=== PATIENT | female | born 1980 | race Caucasian/White ===

== ENCOUNTER 2017-07-14 20:29 | Emergency (ER) | payer OTHER ==
[~2017-07-14] VITALS: Ht 157.5 cm; Wt 75.3 kg
--- OUTSIDE RECORDS SUMMARY | ~2017-07-14 | XMS ---
Demographics + + + | Address | [address] | | | [place] [address] | + + + | Preferred Language | Unknown | + + + | Marital Status | Unknown | + + + | Confucianist Affiliation | Unknown | + + + | Race | Unknown | + + + | Ethnic Group | Unknown | + + + Author + + + | Author | [facility] | + + + | Organization | [facility] | + + + | Address | [address] | | | [place] [address] | + + + | Phone | | + + + Care Team Providers + + + + | Care Ward Aide Name | Role | Phone | + + + + Unavailable | Unavailable | + + + + PROBLEMS +---------+ + + +--------+ + + | Type | Condition | ICD9-CM | TVX51-[id number] | Onset | Condition | SNOMED | | | | Code | Code | Dates | Status | Code | +---------+ + + +--------+ + + | Problem | Dizziness | 780.4 | | | Active | [id number] | +---------+ + + +--------+ + + | Problem | Chronic | 723.1 | | | Active | 2809225023 | | | neck pain | | | | | 107 | +---------+ + + +--------+ + + | Problem | Migraines | 346.90 | | | Active | 89950377 | +---------+ + + +--------+ + + | Problem | Pain in | | M79.672 | | Active | 8042400237 | | | left foot | | | | | [address] | +---------+ + + +--------+ + + | Problem | Other | G89.29 | | | Active | 24865074 | | | chronic | | | | | | | | pain | | | | | | +---------+ + + +--------+ + + | Problem | Allergic | | J30.9 | | Active | 62978173 | | | rhinitis | | | | | | +---------+ + + +--------+ + + | Problem | Allergic | J45.909 | | | Active | 606703904 | | | bronchitis | | | | | | +---------+ + + +--------+ + + | Problem | Pain in | | M79.671 | | Active | 2473591344 | | | right foot | | | | | [address] | +---------+ + + +--------+ + + | Problem | Lower back | M54.5 | | | Active | 018469509 | | | pain | | | | | | +---------+ + + +--------+ + + ALLERGIES Unknown Allergies SOCIAL HISTORY No smoking Hx information available PLAN OF CARE VITAL SIGNS MEDICATIONS Unknown Medications RESULTS No Results PROCEDURES No Known procedures IMMUNIZATIONS No Known Immunizations"
--- OUTSIDE RECORDS SUMMARY | ~2017-07-14 | XMS ---
Demographics + + + | Address | [address] | | | [place] [address] | + + + | Preferred Language | Unknown | + + + | Marital Status | Unknown | + + + | Worship Affiliation | Unknown | + + + | Race | Unknown | + + + | Ethnic Group | Unknown | + + + Author + + + | Author | [facility] | + + + | Organization | [facility] | + + + | Address | [address] | | | [place] [address] | + + + | Phone | | + + + Care Team Providers + + + + | Care Master Machinist Name | Role | Phone | + + + + Unavailable | Unavailable | + + + + PROBLEMS +---------+ + + +--------+ + + | Type | Condition | ICD9-CM | GKE45-JP | Onset | Condition | SNOMED | | | | Code | Code | Dates | Status | Code | +---------+ + + +--------+ + + | Problem | Chronic | 723.1 | | | Active | 8529947336 | | | neck pain | | | | | 107 | +---------+ + + +--------+ + + | Problem | Allergic | | J30.9 | | Active | 00645841 | | | rhinitis | | | | | | +---------+ + + +--------+ + + | Problem | Allergic | J45.909 | | | Active | 801919167 | | | bronchitis | | | | | | +---------+ + + +--------+ + + | Problem | Dizziness | 780.4 | | | Active | 639479189 | +---------+ + + +--------+ + + | Problem | Migraines | 346.90 | | | Active | 21071144 | +---------+ + + +--------+ + + | Problem | Borderline | R73.03 | | | Active | 908711808 | | | diabetes | | | | | | +---------+ + + +--------+ + + | Problem | BMI | Z68.27 | | | Active | 730170848 | | | 27.0-27.9, | | | | | | | | adult | | | | | | +---------+ + + +--------+ + + | Problem | Pain in | | M79.671 | | Active | 3908787962 | | | right foot | | | | | [address] | +---------+ + + +--------+ + + | Problem | Lower back | M54.5 | | | Active | 651577402 | | | pain | | | | | | +---------+ + + +--------+ + + | Problem | Pain in | | M79.672 | | Active | 0176969664 | | | left foot | | | | | [address] | +---------+ + + +--------+ + + | Problem | Other | G89.29 | | | Active | 56858571 | | | chronic | | | | | | | | pain | | | | | | +---------+ + + +--------+ + + ALLERGIES + + + + +--------+ | Substance | Reaction | Event Type | Date | Status | + + + + +--------+ | Latex | rash | Drug Allergy | Mar, | Active | + + + + +--------+ | Amoxicillin | facial swelling | Drug Allergy | Mar, | Active | + + + + +--------+ SOCIAL HISTORY No smoking Hx information available PLAN OF CARE + +---------+ | Activity | Details | + +---------+ +---+ | | +---+ + + + | Follow Up | 6 Weeks Reason:null | + + + VITAL SIGNS + + + + | Height | 62 in | 2017-03-28 | + + + + | Weight | 147.0 lbs | 2017-03-28 | + + + + | BMI | 26.88 kg/m2 | 2017-03-28 | + + + + | Temperature | 99.4 degrees Fahrenheit | 2017-03-28 | + + + + | Heart Rate | 58 /min | 2017-03-28 | + + + + | Blood pressure systolic | 145 mm Hg | 2017-03-28 | + + + + | Blood pressure diastolic | 77 mm Hg | 2017-03-28 | + + + + MEDICATIONS + + + + + + + +--------+ | Medicati | Instruct | Dosage | Frequenc | Start | End Date | Duration | Status | | on | ions | | y | Date | | | | + + + + + + + +--------+ | Albutero | Inhalati | 2 puffs | | | | 30 | Active | | l | on q4hrs | as | | | | day(s) | | | Sulfate | | needed | | | | | | | HFA 108 | | | | | | | | | (90 | | | | | | | | | Base) | | | | | | | | | MCG/ACT | | | | | | | | + + + + + + + +--------+ | Gabapent | Orally | 1 | | 31 May, | | 30 | Active | | in 300 | qHS | capsule | | 2017 | | day(s) | | | MG | | | | | | | | + + + + + + + +--------+ RESULTS No Results PROCEDURES + + + + + | Procedure | Date Ordered | Related Diagnosis | Body Site | + + + + + | Est Level II | March 28, 2017 | | | | Limited | | | | + + + + + | DSCHRG MED/CURRENT | March 28, 2017 | | | | MED MERGE | | | | + + + + + | DOC MEDS VERIFIED | March 28, 2017 | | | | W/PT OR RE | | | | + + + + + IMMUNIZATIONS No Known Immunizations"
--- OUTSIDE RECORDS SUMMARY | ~2017-07-14 | XMS ---
Demographics + + + | Address | [address] | | | [place] [address] | + + + | Preferred Language | Unknown | + + + | Marital Status | Unknown | + + + | Taoism Affiliation | Unknown | + + + | Race | Unknown | + + + | Ethnic Group | Unknown | + + + Author + + + | Author | [facility] | + + + | Organization | [facility] | + + + | Address | [address] | | | [place] [address] | + + + | Phone | | + + + Care Team Providers + + + + | Care Personal Injury Paralegal Name | Role | Phone | + + + + Unavailable | Unavailable | + + + + PROBLEMS +---------+ + + +--------+ + + | Type | Condition | ICD9-CM | ZGY98-QQ | Onset | Condition | SNOMED | | | | Code | Code | Dates | Status | Code | +---------+ + + +--------+ + + | Problem | Chronic | 723.1 | | | Active | 3507524866 | | | neck pain | | | | | 107 | +---------+ + + +--------+ + + | Problem | Allergic | | J30.9 | | Active | 75903877 | | | rhinitis | | | | | | +---------+ + + +--------+ + + | Problem | Allergic | J45.909 | | | Active | 036659160 | | | bronchitis | | | | | | +---------+ + + +--------+ + + | Problem | Dizziness | 780.4 | | | Active | 035799504 | +---------+ + + +--------+ + + | Problem | Migraines | 346.90 | | | Active | 70575573 | +---------+ + + +--------+ + + | Problem | Borderline | R73.03 | | | Active | 222396369 | | | diabetes | | | | | | +---------+ + + +--------+ + + | Problem | BMI | Z68.27 | | | Active | 590359771 | | | 27.0-27.9, | | | | | | | | adult | | | | | | +---------+ + + +--------+ + + | Problem | Pain in | | M79.671 | | Active | 7878270122 | | | right foot | | | | | [address] | +---------+ + + +--------+ + + | Problem | Lower back | M54.5 | | | Active | 031420150 | | | pain | | | | | | +---------+ + + +--------+ + + | Problem | Pain in | | M79.672 | | Active | 0991210054 | | | left foot | | | | | [address] | +---------+ + + +--------+ + + | Problem | Other | G89.29 | | | Active | 71341555 | | | chronic | | | | | | | | pain | | | | | | +---------+ + + +--------+ + + ALLERGIES Unknown Allergies SOCIAL HISTORY No smoking Hx information available PLAN OF CARE VITAL SIGNS MEDICATIONS Unknown Medications RESULTS No Results PROCEDURES No Known procedures IMMUNIZATIONS No Known Immunizations"
--- OUTSIDE RECORDS SUMMARY | ~2017-07-14 | XMS ---
Demographics + + + | Address | [address] | | | [place] [address] | + + + | Preferred Language | Unknown | + + + | Marital Status | Unknown | + + + | Sabianism Affiliation | Unknown | + + + | Race | Unknown | + + + | Ethnic Group | Unknown | + + + Author + + + | Author | [facility] | + + + | Organization | [facility] | + + + | Address | [address] | | | [place] [address] | + + + | Phone | | + + + Care Team Providers + + + + | Care Water Taxi Operator Name | Role | Phone | + + + + Unavailable | Unavailable | + + + + PROBLEMS + + + + + + + + | Type | Condition | ICD9-CM | LYS66-UJ | Onset | Condition | SNOMED | | | | Code | Code | Dates | Status | Code | + + + + + + + + | Problem | Dizziness | 780.4 | | | Active | 035844396 | + + + + + + + + | Problem | Chronic | 723.1 | | | Active | 3004767227 | | | neck pain | | | | | 107 | + + + + + + + + | Problem | Migraines | 346.90 | | | Active | 37416216 | + + + + + + + + | Assessment | Screening | | Z13.220 | 14 February, | Active | 960612970 | | | cholestero | | | 2017 | | | | | l level | | | | | | + + + + + + + + | Assessment | Family | | Z83.3 | 10 February, | Active | 442838880 | | | history of | | | 2016 | | | | | diabetes | | | | | | | | mellitus | | | | | | + + + + + + + + | Assessment | Encounter | | Z13.89 | 14 February, | Active | 782066071 | | | for | | | 2016 | | | | | screening | | | | | | | | for other | | | | | | | | disorder | | | | | | + + + + + + + + | Assessment | Allergic | | J30.9 | 10 February, | Active | 31021630 | | | rhinitis | | | 2017 | | | + + + + + + + + | Problem | Pain in | | M79.672 | | Active | 6251284801 | | | left foot | | | | | [address] | + + + + + + + + | Problem | Other | G89.29 | | | Active | 39338971 | | | chronic | | | | | | | | pain | | | | | | + + + + + + + + | Problem | Allergic | | J30.9 | | Active | 52569514 | | | rhinitis | | | | | | + + + + + + + + | Problem | Allergic | J45.909 | | | Active | 284123756 | | | bronchitis | | | | | | + + + + + + + + | Problem | Pain in | | M79.671 | | Active | 8215908805 | | | right foot | | | | | [address] | + + + + + + + + | Problem | Lower back | M54.5 | | | Active | 798069178 | | | pain | | | | | | + + + + + + + + ALLERGIES + + + + +--------+ | Substance | Reaction | Event Type | Date | Status | + + + + +--------+ | Latex | rash | Drug Allergy | February, | Active | + + + + +--------+ | Amoxicillin | facial swelling | Drug Allergy | February, | Active | + + + + +--------+ SOCIAL HISTORY No smoking Hx information available PLAN OF CARE VITAL SIGNS + + + + | Height | 62 in | 2017-02-14 | + + + + | Weight | 156.8 lbs | 2017-02-14 | + + + + | BMI | 28.68 kg/m2 | 2017-02-14 | + + + + | Temperature | 99.0 degrees Fahrenheit | 2017-02-14 | + + + + | Heart Rate | 54 /min | 2017-02-14 | + + + + | Blood pressure systolic | 116 mm Hg | 2017-02-14 | + + + + | Blood pressure diastolic | 61 mm Hg | 2017-02-14 | + + + + MEDICATIONS + + + + + + + +--------+ | Medicati | Instruct | Dosage | Frequenc | Start | End Date | Duration | Status | | on | ions | | y | Date | | | | + + + + + + + +--------+ | Robituss | Orally | 2 tsp @ | | 08 February, | | week | Active | | in AC | qhs | hs prn | | 2016 | | | | | 100 | | cough | | | | | | | MG/5ML | | | | | | | [...] + + + + + +--------+ RESULTS + +--------+ + + | Name | Result | Date | Reference Range | + +--------+ + + | CBC With | | 2017-02-14 | | | Differential/Platel | | | | | et | | | | + +--------+ + + | WBC | | | | + +--------+ + + | RBC | | | | + +--------+ + + | Hemoglobin | | | | + +--------+ + + | Hematocrit | | | | + +--------+ + + | MCV | | | | + +--------+ + + | MCH | | | | + +--------+ + + | MCHC | | | | + +--------+ + + | Neutrophils | | | | + +--------+ + + | Lymphs | | | | + +--------+ + + | Monocytes | | | | + +--------+ + + | Eos | | | | + +--------+ + + | Basos | | | | + +--------+ + + | Platelets | | | | + +--------+ + + | Hematology | | | | | Comments: | | | | + +--------+ + + | Neutrophils | | | | | (Absolute) | | | | + +--------+ + + | Lymphs (Absolute) | | | | + +--------+ + + | Monocytes(Absolute) | | | | + +--------+ + + | Eos (Absolute) | | | | + +--------+ + + | Baso (Absolute) | | | | + +--------+ + + | RDW | | | | + +--------+ + + | Sedimentation | | 2017-02-14 | | | Rate-Westergren | | | | + +--------+ + + | Sedimentation | | | | | Rate-Westergren | | | | + +--------+ + + | Comp. Metabolic | | 2017-02-14 | | | Panel (14) | | | | + +--------+ + + | Calcium, Serum | | | | + +--------+ + + | Glucose, Serum | | | | + +--------+ + + | BUN | | | | + +--------+ + + | Protein, Total, | | | | | Serum | | | | + +--------+ + + | Albumin, Serum | | | | + +--------+ + + | Bilirubin, Total | | | | + +--------+ + + | Alkaline | | | | | Phosphatase, S | | | | + +--------+ + + | AST (SGOT) | | | | + +--------+ + + | Potassium, Serum | | | | + +--------+ + + | Sodium, Serum | | | | + +--------+ + + | Chloride, Serum | | | | + +--------+ + + | Creatinine, Serum | | | | + +--------+ + + | ALT (SGPT) | | | | + +--------+ + + | Carbon Dioxide, | | | | | Total | | | | + +--------+ + + | BUN/Creatinine | | | | | Ratio | | | | + +--------+ + + | Globulin, Total | | | | + +--------+ + + | A/G Ratio | | | | + +--------+ + + | Lipid Panel | | 2017-02-14 | | + +--------+ + + | CHOLESTEROL | | | | + +--------+ + + | TRIGLYCERIDES | | | | + +--------+ + + | NON-HDL CHOL | | | | + +--------+ + + | HDL | | | | + +--------+ + + | LDL | | | | + +--------+ + + | VLDL | | | | + +--------+ + + | CHOL/HDL | | | | + +--------+ + + | Hemoglobin A1C | | 2017-02-14 | | | Panel | | | | + +--------+ + + | EST AVG GLUCOSE | | | | + +--------+ + + | HEMOGLOBIN A1C | | | | + +--------+ + + | X ray : Foot AP/L/O | | 2017-02-14 | | | Weightbearing | | | | | (3+views)-RT DRHannah | | | | | [place] | | | | + +--------+ + + | X ray : Foot AP/L/O | | 2017-02-14 | | | Weightbearing | | | | | (3+views)- LT DR. | | | | | [place] | | | | + +--------+ + + PROCEDURES + + + + + | Procedure | Date Ordered | Related Diagnosis | Body Site | + + + + + | Est Level IV | February 14, 2017 | | | | Extended | | | | + + + + + | DSCHRG MED/CURRENT | February 14, 2017 | | | | MED MERGE | | | | + + + + + | DOC MEDS VERIFIED | February 14, 2017 | | | | W/PT OR RE | | | | + + + + + IMMUNIZATIONS No Known Immunizations"
--- OUTSIDE RECORDS SUMMARY | ~2017-07-14 | XMS ---
Demographics + + + | Address | [address] | | | [place] [address] | + + + | Preferred Language | Unknown | + + + | Marital Status | Unknown | + + + | Cheondoism Affiliation | Unknown | + + + | Race | Unknown | + + + | Ethnic Group | Unknown | + + + Author + + + | Author | [facility] | + + + | Organization | [facility] | + + + | Address | [address] | | | [place] [address] | + + + | Phone | | + + + Care Team Providers + + + + | Care Health Science Instructor Name | Role | Phone | + + + + Unavailable | Unavailable | + + + + PROBLEMS +---------+ + + +--------+ + + | Type | Condition | ICD9-CM | RYV80-AE | Onset | Condition | SNOMED | | | | Code | Code | Dates | Status | Code | +---------+ + + +--------+ + + | Problem | Chronic | 723.1 | | | Active | [id number] | | | neck pain | | | | | 107 | +---------+ + + +--------+ + + | Problem | Allergic | | J30.9 | | Active | 20660196 | | | rhinitis | | | | | | +---------+ + + +--------+ + + | Problem | Allergic | J45.909 | | | Active | 221355741 | | | bronchitis | | | | | | +---------+ + + +--------+ + + | Problem | Dizziness | 780.4 | | | Active | 308834418 | +---------+ + + +--------+ + + | Problem | Migraines | 346.90 | | | Active | 80314824 | +---------+ + + +--------+ + + | Problem | Borderline | R73.03 | | | Active | 418805040 | | | diabetes | | | | | | +---------+ + + +--------+ + + | Problem | BMI | Z68.27 | | | Active | 957820914 | | | 27.0-27.9, | | | | | | | | adult | | | | | | +---------+ + + +--------+ + + | Problem | Pain in | | M79.671 | | Active | 8996813779 | | | right foot | | | | | [address] | +---------+ + + +--------+ + + | Problem | Lower back | M54.5 | | | Active | 203189519 | | | pain | | | | | | +---------+ + + +--------+ + + | Problem | Pain in | | M79.672 | | Active | 4906331815 | | | left foot | | | | | [address] | +---------+ + + +--------+ + + | Problem | Other | G89.29 | | | Active | 85730109 | | | chronic | | | [...] + + + | Follow Up | 3 -4 Weeks Reason:null | + + + VITAL SIGNS + + + + | Height | 62 in | 2017-03-07 | + + + + | Weight | 151.6 lbs | 2017-03-07 | + + + + | BMI | 27.72 kg/m2 | 2017-03-07 | + + + + | Temperature | 97.9 degrees Fahrenheit | 2017-03-07 | + + + + | Heart Rate | 58 /min | 2017-03-07 | + + + + | Blood pressure systolic | 110 mm Hg | 2017-03-07 | + + + + | Blood pressure diastolic | 40 mm Hg | 2017-03-07 | + + + + MEDICATIONS + + + + + + + +--------+ | Medicati | Instruct | Dosage | Frequenc | Start | End Date | Duration | Status | | on | ions | | y | Date | | | | + + + + + + + +--------+ | Gabapent | Orally | 1 | | 31 February, | | 30 | Active | | [...] + + | Est Level IV | March 07, 2017 | | | | Extended | | | | + + + + + | DSCHRG MED/CURRENT | March 07, 2017 | | | | MED MERGE | | | | + + + + + | DOC MEDS VERIFIED | March 07, 2017 | | | | W/PT OR RE | | | | + + + + + IMMUNIZATIONS No Known Immunizations"
[~2017-07-14 20:29] MED LIST: AZITHROMYCIN250 MG PO; BACLOFEN10 MG PO; CELEXA20 MG PO; CRUTCH1 EACH; CYCLOBENZAPRINE10 MG PO; CYMBALTA60 MG PO; DAYPRO600 MG PO; DICLOFENAC SODI75 MG PO; FLEXERIL10 MG PO; FLOMAX0.4 MG PO; IBUPROFEN600 MG PO; LEVAQUIN500 MG PO; LIDOCAINE700 MG TOP; LYRICA25 MG PO; LYRICA50 MG PO; MEDROL4 M1 PO; METHYLPREDNISOLO4 M1 PO; NEURONTIN300 MG PO; NORCO 5-325 TA1 EACH PO; OXYCODONE-ACET1 EAC1 PO; PERCOCET 5-3251 EACH PO; PREDNISONE20 MG PO; PYRIDIUM200 MG PO; SKELAXIN800 MG PO
[2017-07-14] MEDS ORDERED: ACETAMINOPHEN500 MG PO (21:10)
[2017-07-14] MEDS ORDERED: CYCLOBENZAPRINE10 MG PO (22:18)
== END 2017-07-14 22:38 | disposition home or self-care (01) ==
LOC: ED 20:29
DX: G89.29 Other chronic pain (principal); M54.2 Cervicalgia; F17.200 Nicotine dependence, unspecified, uncomplicated; Z98.51 Tubal ligation status; Z90.49 Acquired absence of other specified parts of digestive tract; Z88.1 Allergy status to other antibiotic agents; Z91.040 Latex allergy status; Z79.899 Other long term (current) drug therapy
CPT/HCPCS: 99283

== ENCOUNTER 2017-11-12 19:08 | Emergency (ER) | payer OTHER ==
[~2017-11-12] VITALS: Ht 157.5 cm; Wt 75.3 kg
[~2017-11-12 19:08] MED LIST changes: +ACETAMINOPHEN500 MG PO
[2017-11-12] MEDS ORDERED: VENTOLIN HFA18 GM INH (19:21)
[2017-11-12] MEDS ORDERED: DICLOFENAC SODI75 MG PO (21:28)
[2017-11-12] MEDS ORDERED: TRAMADOL HCL50 MG PO (21:28)
== END 2017-11-12 21:44 | disposition home or self-care (01) ==
LOC: ED 19:08
DX: M25.552 Pain in left hip (principal); F17.200 Nicotine dependence, unspecified, uncomplicated; Z88.0 Allergy status to penicillin; Z91.040 Latex allergy status
CPT/HCPCS: 73502; 99283

== ENCOUNTER 2020-07-30 09:43 | Emergency (ER) | payer OTHER ==
[~2020-07-30] VITALS: Ht 157.5 cm; Wt 81.2 kg
--- OUTSIDE RECORDS SUMMARY | ~2020-07-30 | XMS | Encounter Summary ---
Demographics + + + | Address | [address] | | | [place] [address] | + + + | Home Phone | | + + + | Preferred Language | Unknown | + + + | Marital Status | | + + + | Mandaeism Affiliation | 1013 | + + + | Race | White | + + + | Ethnic Group | Not or | + + + Author + + + | Author | [facility] | | | and [place] | + + + | Organization | [facility] | | | and [place] | + + + | Address | Unknown | + + + | Phone | Unavailable | + + + Support + + +---------+ + | Name | Relationship | Address | Phone | + + +---------+ + | Avery Quiroz | ECON | Unknown | | + + +---------+ + | Alissalaila Jackson | ECON | Unknown | | + + +---------+ + Care Team Providers + +------+ + | Care Occ Med Physician Name | Role | Phone | + +------+ + | Ingrid Acosta | PCP | | | PREPARATION SUPERVISOR FREEZING | | | + +------+ + Encounter Details +--------+ + + + + | Date | Type | Department | Care Team | Description | +--------+ + + + + | 09/29/ | Orders Only | [facility] [place] | Kg Lemons, | Neck pain (Primary | | 2012 | | NEUR[address]UR[address]ERY [address] | DO [address] | Dx) | | | | [address] | [address] [place], [place] | | | | | [place], [place] | [address] | | | | | [address] | | | | | | [phone] | | | +--------+ + + + + Social History + +-------+ +--------+------+ | Tobacco Use | Types | Packs/Day | Years | Date | | | | | Used | | + +-------+ +--------+------+ | Never Assessed | | | | | + +-------+ +--------+------+ + + + | Sex Assigned at | Date Recorded | | | | + + + | Not on file | | + + + documented as of this encounter Plan of Treatment + +---------+--------+ + + | Name | Type | Priori | Associated Diagnoses | Order Schedule | | | | ty | | | + +---------+--------+ + + | XR Cervical Spine 3 | Imaging | Routin | Neck pain | Expected: | | Vws or Less | | e | | 09/29/2013, Expires: | | | | | | 09/29/2014 | + +---------+--------+ + + documented as of this encounter Visit Diagnoses + + | Diagnosis | + + | Neck pain - Primary Cervicalgia | + + documented in this encounter"
--- OUTSIDE RECORDS SUMMARY | ~2020-07-30 | XMS | Encounter Summary ---
Demographics + + + | Address | [address] | | | [place] [address] | + + + | Home Phone | | + + + | Preferred Language | Unknown | + + + | Marital Status | | + + + | Yazidism Affiliation | 1013 | + + + | Race | White | + + + | Ethnic Group | Not or | + + + Author + + + | Author | [facility] | | | and [place] | + + + | Organization | [facility] | | | and [place] | + + + | Address | Unknown | + + + | Phone | Unavailable | + + + Support + + +---------+ + | Name | Relationship | Address | Phone | + + +---------+ + | Avery Quiroz | ECON | Unknown | | + + +---------+ + | Alissa Manuel | ECON | Unknown | | + + +---------+ + Care Team Providers + +------+ + | Care Party Plan Sales Consultant Name | Role | Phone | + +------+ + | Issa Reid MD | PCP | | + +------+ + Encounter Details +--------+ + + + + | Date | Type | Department | Care Team | Description | +--------+ + + + + | 11/12/ | Orders Only | [facility] [place] | Kg Lemons, | Neck pain | | 2013 | | [address]UR[address] | [address] | | | | | [address] | [address] [place], [place] | | | | | [place], [place] | [address] | | | | | [address] | | | | | | [phone] | | | +--------+ + + + [...] as of this encounter Plan of Treatment Not on filedocumented as of this encounter Visit Diagnoses + + | Diagnosis | + + | Neck pain Cervicalgia | + + documented in this encounter"
--- OUTSIDE RECORDS SUMMARY | ~2020-07-30 | XMS | Encounter Summary ---
Demographics + + + | Address | [address] | | | [place] [address] | + + + | Home Phone | | + + + | Preferred Language | Unknown | + + + | Marital Status | | + + + | Mosque Affiliation | 1013 | + + + | Race | White | + + + | Ethnic Group | Not or | + + + Author + + + | Author | [facility] | | | and [place] | + + + | Organization | [facility] | | | and [place] | + + + | Address | Unknown | + + + | Phone | Unavailable | + + + Support + + +---------+ + | Name | Relationship | Address | Phone | + + +---------+ + | Avery Quiroz | ECON | Unknown | | + + +---------+ + | Alissa Jackson | ECON | Unknown | | + + +---------+ + Care Team Providers + +------+ + | Care Wiping Rag Washer Name | Role | Phone | + +------+ + | Adrien Chatterjee DO | PCP | | + +------+ + Reason for Visit +--------+--------+ + | Reason | Onset | Comments | | | Date | | +--------+--------+ + | Other | 06/11/ | | | | 2013 | | +--------+--------+ + Encounter Details +--------+ + + + + | Date | Type | Department | Care Team | Description | +--------+ + + + + | 06/11/ | Telephone | [facility] | Kg Lemons, | Other | | 2013 | | [address]UR[address] | [address] | | | | | [address] | [address] [place], [place] | | | | | [place], [place] | [id number] | | | | | [address] | | | | | | [phone] | | | +--------+ + + + + Social History + + + +--------+------+ | Tobacco Use | Types | Packs/Day | Years | Date | | | | | Used | | + + + +--------+------+ | Current Every Day | Cigarettes | 1.25 | 19 | | | Smoker | | | | | + + + +--------+------+ + +---+---+---+ | Smokeless Tobacco: | | | | | Never Used | | | | + +---+---+---+ + + +---------+ + | Alcohol Use | Drinks/Week | oz/Week | Comments | + + +---------+ + | Yes | | | 2-3 drinks per | | | | | yearrarely | + + +---------+ + + + + | Sex Assigned at | Date Recorded | | | | + + + | Not on file | | + + + documented as of this encounter Miscellaneous Notes Telephone Encounter - Omer Jackson Cert MA - 06/11/2014 2:47 PM PDTI called [facility] tee [facility]ad to confirm wether or not the Rx's I called in for [place] yesterday afternoon were read y 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 I re-called in both prescriptions for [place] and Diazepam at this time. LVM for Gale letting her know. OMER JACKSON elephone Encounte r - Lacie Lemus - 06/11/2014 1:28 PM PDTPatient called to check on status of Rx, pranay severino advised per Omer she will call [facility]. elephone Encounter - Brenda Pinon - 06/11/2014 11:35 AM PDTAma nda called in stating that she called her pharmacy and they said that no prescription was ca lled in from out office. She would like a call back , please advise. documented in this encounter Plan of Treatment Not on filedocumented as of this encounter Visit Diagnoses Not on filedocumented in this encounter"
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
--- OUTSIDE RECORDS SUMMARY | ~2020-07-30 | XMS | Encounter Summary ---
Demographics + + + | Address | [address] | | | [place] [address] | + + + | Home Phone | | + + + | Preferred Language | Unknown | + + + | Marital Status | | + + + | Yazidi Affiliation | 1013 | + + + | Race | White | + + + | Ethnic Group | Not or | + + + Author + + + | Author | [facility] | | | and [place] | + + + | Organization | [facility] | | | [...] Team Providers + +------+ + | Care Carton Forming Machine Tender Name | Role | Phone | + +------+ + | Adrien Chatterjee DO | PCP | | + +------+ + Encounter Details +--------+ + + + + | Date | Type | Department | Care Team | Description | +--------+ + + + + | 02/21/ | Orders Only | [facility] [place] | Kg Lemons, | Neck pain (Primary | | 2018 | | NEUROSURGERY [address] | DO [address] | Dx) | | | | [address] | [address] [place], [place] | | | | | [place], [place] | [address] | | | | | [address] | | | | | | [phone] | | | +--------+ + + + [...] Not on filedocumented as of this encounter Results XR Cervical Spine 4 or 5 Vws (04/05/2018 9:29 AM PDT) + + | Specimen | + + | | + + + + + | Narrative | Performed At | + + + | XR CERVICAL SPINE 4 OR 5 VWS 04/05/2018 9:28 AM HISTORY: Neck | [facility] | | pain. COMPARISON: 07/17/2017 FINDINGS: Visualized skull base | | | and facial structures demonstrate no acute findings. Prevertebral | | | soft tissues are normal. Stable anterior and interbody fusion | | | changes at C5-C6. Unchanged alignment with mild reversal of the | | | normal cervical lordosis centered at C4. Facets are anatomically | | | aligned. No significant degenerative change of the remainder of the | | | cervical spine. No evidence of dynamic listhesis. IMPRESSION - | | | Stable anterior and interbody fusion changes at C5-C6. Unchanged | | | alignment with mild reversal of the normal cervical lordosis centered | | | at C4. Dictated and Signed by: Yayo Yan MD | | | Electronically signed: 04/05/2018 9:37 AM | | + + + + + | Procedure Note | + + | Ant, Rad Results In - 04/05/2018 9:40 AM PDT XR CERVICAL SPINE 4 OR 5 VWS 04/05/2018 | | 9:28 AMHISTORY: Neck pain.COMPARISON: 07/17/2017FINDINGS:Visualized skull base and | | facial structures demonstrate no acute findings.Prevertebral soft tissues are | | normal.Stable anterior and interbody fusion changes at C5-C6. Unchanged alignment | | withmild reversal of the normal cervical lordosis centered at C4. Facets areanatomically | | aligned. No significant degenerative change of the remainder of thecervical spine. No | | evidence of dynamic listhesis.IMPRESSION -Stable anterior and interbody fusion changes | | at C5-C6. Unchanged alignment with mild reversal of the normal cervical lordosis | | centeredat C4. Dictated and Signed by: Yayo Yan MD Electronically signed: | | 04/05/2018 9:37 AM | |Stable anterior and interbody fusion changes at C5-C6. Unchanged alignment with | |mild reversal of the normal cervical lordosis centered at C4. Facets are | |anatomically aligned. No significant degenerative change of the remainder of the | |cervical spine. No evidence of dynamic listhesis. | | | |IMPRESSION - | |Stable anterior and interbody fusion changes at C5-C6. | | | |Unchanged alignment with mild reversal of the normal cervical lordosis centered | |at C4. | | | |Dictated and Signed by: Yayo Yan MD | | Electronically signed: 04/05/2018 9:37 AM | + + + +---------+ + + | Performing | Address | City/State/Zipcode | Phone Number | | Organization | | | | + +---------+ + + | [facility] | | | | + +---------+ + + documented in this encounter Visit Diagnoses + + | Diagnosis | + + | Neck pain - Primary Cervicalgia | + + documented in this encounter"
--- OUTSIDE RECORDS SUMMARY | ~2020-07-30 | XMS | Encounter Summary ---
Demographics + + + | Address | [address] | | | [place] [address] | + + + | Home Phone | | + + + | Preferred Language | Unknown | + + + | Marital Status | | + + + | Islam Affiliation | 1013 | + + + | Race | White | + + + | Ethnic Group | Not or | + + + Author + + + | Author | [facility] | | | and [place] | + + + | Organization | [facility] | | | and [...] Team Providers + +------+ + | Care Admissions Specialist Name | Role | Phone | + +------+ + | Adrien Chatterjee DO | PCP | | + +------+ + Encounter Details +--------+ + + + + | Date | Type | Department | Care Team | Description | +--------+ + + + + | 12/29/ | Orders Only | [facility] [place] | Manuel Lubin | Neuropathic pain | | 2014 | | NEUROLOGY HAN[facility] | MD Rodri Need updated | (Primary Dx) | | | | [address], | address | | | | | [address] [place] | | | | | | [place] [address] | | | | | | [phone] | | | +--------+ + + + [...] + + documented as of this encounter Progress Notes Manuel Lubin MD - 12/29/2014 9:41 AM PDTLyrica refilled. documented in this encounter Plan of Treatment Not on filedocumented as of this encounter Visit Diagnoses + + | Diagnosis | + + | Neuropathic pain - Primary Neuralgia, neuritis, and radiculitis, unspecified | + + documented in this encounter"
--- OUTSIDE RECORDS SUMMARY | ~2020-07-30 | XMS | Encounter Summary ---
Demographics + + + | Address | [address] | | | [place] [address] | + + + | Home Phone | | + + + | Preferred Language | Unknown | + + + | Marital Status | | + + + | Adventism Affiliation | 1013 | + + + | Race | White | + + + | Ethnic Group | Not or | + + + Author + + + | Author | [facility] | | | and [place] | + + + | Organization | [facility] | | | [...] Team Providers + +------+ + | Care Entrance Guard Name | Role | Phone | + +------+ + | Adrien Chatterjee DO | PCP | | + +------+ + Reason for Visit +--------+--------+ + | Reason | Onset | Comments | | | Date | | +--------+--------+ + | Other | 12/29/ | Physical Therapy Care Plan | | | 2014 | | +--------+--------+ + Encounter Details +--------+ + + + + | Date | Type | Department | Care Team | Description | +--------+ + + + + | 12/29/ | Telephone | [facility] | Kg Lemons, | Other (Physical | | 2015 | | NEUROSURGERY [address] | DO [address] | Therapy Care Plan) | | | | [address] | [address] [place], [place] | | | | | [place], [place] | [address] | | | | | [address] | | | | | | [phone] | | | +--------+ + + + [...] Encounter - Omer Jackson Cert MA - 12/30/2014 10:55 AM PDTI called Elham back a nd let her know that I do have the plan of care, but I am still waiting on a signature from the physician. As soon as I get a signature I will fax it back immediately. OMER JACKSON eleYanira Cummings - 12/29/2014 3:02 PM PDTJulie from [facility] called to see if we received the plan of care for Gale and if it has been signed yet. Please advi . documented in this encounter Plan of Treatment Not on filedocumented as of this encounter Visit Diagnoses Not on filedocumented in this encounter"
--- OUTSIDE RECORDS SUMMARY | ~2020-07-30 | XMS | Encounter Summary ---
Demographics + + + | Address | [address] | | | [place] [address] | + + + | Home Phone | | + + + | Preferred Language | Unknown | + + + | Marital Status | | + + + | Zoroastrian Affiliation | 1013 | + + + | Race | White | + + + | Ethnic Group | Not or | + + + Author + + + | Author | [facility] | | | and [place] | + + + | Organization | [facility] | | | [...] Team Providers + +------+ + | Care Distribution Tech Name | Role | Phone | + +------+ + | Adrien Chatterjee DO | PCP | | + +------+ + Encounter Details +--------+ + + + + | Date | Type | Department | Care Team | Description | +--------+ + + + + | 02/18/ | Imaging | [facility] | Provider, | | | 2018 | Exam | [facility] | MD [address] | | | | | IMAGING [address] | | | | | [address] | [place] [address] | | | | | [place] [address] | | | | | | [phone] | | | +--------+ + + + [...] Not on filedocumented as of this encounter Procedures + +--------+ + + + | Procedure Name | Priori | Date/Time | Associated Diagnosis | Comments | | | ty | | | | + +--------+ + + + | XR LUMBAR SPINE 2 OR | Routin | 09/20/2016 | | Results for this | | 3 VW | e | 5:40 PM | | procedure are in the | | | | PST | | results section. | + +--------+ + + + documented in this encounter Results XR Lumbar Spine 2 or 3 Vw (09/20/2016 5:40 PM PST) + + | Specimen | + + | | + + + + + | Narrative | Performed At | + + + | External films for comparison only | [facility] | | | | | No results will be in the chart. | | + + + + +---------+ + + | Performing | Address | City/State/Zipcode | Phone Number | | Organization | | | | + +---------+ + + | [facility] | | | | + +---------+ + + documented in this encounter Visit Diagnoses Not on filedocumented in this encounter"
--- OUTSIDE RECORDS SUMMARY | ~2020-07-30 | XMS | Encounter Summary ---
Demographics + + + | Address | [address] | | | [place] [address] | + + + | Home Phone | | + + + | Preferred Language | Unknown | + + + | Marital Status | | + + + | Hindu Affiliation | 1013 | + + + | Race | White | + + + | Ethnic Group | Not or | + + + Author + + + | Author | [facility] | | | and [place] | + + + | Organization | [facility] | | | [...] Team Providers + +------+ + | Care Stone Circular Sawyer Name | Role | Phone | + +------+ + | Ingrid Acosta | PCP | | | CROZER | | | + +------+ + Reason for Visit +--------+--------+ + | Reason | Onset | Comments | | | Date | | +--------+--------+ + | Other | 11/25/ | | | | 2013 | | +--------+--------+ + Encounter Details +--------+ + + + + | Date | Type | Department | Care Team | Description | +--------+ + + + + | 11/25/ | Telephone | [facility] [place] | Kg Lemons, | Other | | 2013 | | NEUROSURGERY [address] | DO [address] | | | | | [address] | [address] [place], [place] | | | | | [place], [place] | [id number] | | | | | [address] | | | | | | [phone] | | | +--------+ + + + [...] Encounter - Omer Jackson Cert MA - 01/28/2014 12:58 PM PDTI spoke with Gale. She decided to schedule an appointment with Dr. Lemons to discuss her imaging as well as he r cervical spine. OMER JACKSON eleKg Moses DO - 01/28/2014 11:45 AM PDTSoledad has some L5-S1 degenerative disc diseas e and T11-L1 too. She's welcome to come discuss it. Thanks. elephone Sharmaineo maxer - Omer Jackson Cert MA - 01/28/2014 10:37 AM PDTAmanda called wanting Dr. Lemons to review her MRI of the lumbar spine on I-site. She says she still doesn't know what she want s to do about her neck, she is unsure about getting a fusion done. Please advise. OMER JACKSON elephone [place] r Omer Bowling Cert MA - 01/28/2014 10:29 AM PDTLeft message for Gale. I need to know what MRI she is referring too. Omer elephone Lacie Hillman - 01/28/2014 10:19 AM PDTPatient called to inquire if Dr. Daphney dave had received and reviewed her MRI. Please advise. documented in this encounter Plan of Treatment Not on filedocumented as of this encounter Visit Diagnoses Not on filedocumented in this encounter"
--- OUTSIDE RECORDS SUMMARY | ~2020-07-30 | XMS | Encounter Summary ---
Demographics + + + | Address | [address] | | | [place] [address] | + + + | Home Phone | | + + + | Preferred Language | Unknown | + + + | Marital Status | | + + + | Evangelical Affiliation | 1013 | + + + | Race | White | + + + | Ethnic Group | Not or | + + + Author + + + | Author | [facility] | | | and [place] | + + + | Organization | [facility] | | | [...] Team Providers + +------+ + | Care Modeling Teacher Name | Role | Phone | + +------+ + | Adrien Chatterjee DO | PCP | | + +------+ + Reason for Visit + +--------+ + | Reason | Onset | Comments | | | Date | | + +--------+ + | Appointment | 11/10/ | | | | 2014 | | + +--------+ + Encounter Details +--------+ + + + + | Date | Type | Department | Care Team | Description | +--------+ + + + + | 11/10/ | Telephone | [facility] | Kg Lemons, | Appointment | | 2014 | | NEUROSURGERY [address] | DO [address] | | | | | [address] | [address] [place], [place] | | | | | [place], [place] | [address] | | | | | [address] | | | | | | [phone] | | | +--------+ + + + [...] this encounter Miscellaneous Notes Telephone Encounter - Rossana Heath RN - 11/12/2014 11:30 AM PSTPatient seen in of fice by Dr. Lemons 11/11/14 11: 31 AM PSTTelephone Encounter - Rossana Heath RN - 11/10/2014 4:23 PM PSTLeft VM re quested a call back Surgery: C5-6 ANTERIOR CERVICAL DISCECTOMY WITH FUSION & PLATING Date: 04/23/14 elephone EncSonia Galvan - 11/10/2014 9:12 AM PSTPatient called to verify the time of her offi ce visit on 11/11/14. She also wanted to let Dr. Lemons know that she was seen in the ER at [facility] yesterday because of pain and weakness. documented in this encounter Plan of Treatment Not on filedocumented as of this encounter Visit Diagnoses Not on filedocumented in this encounter"
--- OUTSIDE RECORDS SUMMARY | ~2020-07-30 | XMS | Encounter Summary ---
Demographics + + + | Address | [address] | | | [place] [address] | + + + | Home Phone | | + + + | Preferred Language | Unknown | + + + | Marital Status | | + + + | Religion Affiliation | 1013 | + + + | Race | White | + + + | Ethnic Group | Not or | + + + Author + + + | Author | [facility] | | | and [place] | + + + | Organization | [facility] | | | and [...] Team Providers + +------+ + | Care Tissue Packer Name | Role | Phone | + +------+ + | No, Unknownpcp | PCP | | + +------+ + Reason for Visit + +--------+ + | Reason | Onset | Comments | | | Date | | + +--------+ + | Medication Refill | 07/14/ | | | | 2013 | | + +--------+ + Encounter Details +--------+--------+ + + + | Date | Type | Department | Care Team | Description | +--------+--------+ + + + | 07/14/ | Refill | [facility] | Kg Lemons, | Medication Refill | | 2013 | | NEUROSURGERY [address] | DO [address] | | | | | [address] [facility] [address] | [address] [place], [place] | | | | | [place], [place] | [id number] | | | | | [address] | | | | | | [phone] | | | +--------+--------+ + + + Social History + + [...] this encounter Miscellaneous Notes Telephone Encounter - Rima Alcazar RN - 07/17/2014 12:55 PM PDTCalled pt to informed her that her rx refill is ready to be picked up. Pt stated she will be coming today. Informed pt that since our office closes at 1300, we will leave prescription to be picked up at urgent care. Pt verbalized understanding. 12 :56 PM PDTTelephone Encounter - Rima Alcazar RN - 07/16/2014 2:04 PM PDTCalled pt to noti fy that prescription refill has been authorized and rx is ready to be picked up. Left leta e. Will attempt to call later. elephone Encounter - Tacho Crawford PA - 07/16/2014 1:21 PM PDTThis will be her last Rx from our office. After this she will need to get further Rx from PCP. elephone Encounter - Belgica Jackson Cert MA - 07/14/2014 3:12 PM PDTAmanda called to request a refill of her pain medication and muscle relaxer. She is currently taking Hydrocodone 2 PO 4 times/day and Diazepam 5mg P RN, sometimes 2 at a time depending on how bad the spasms are. She states she has had two ep isodes this past week of shooting pain on the left side of her face, down her left arm, shou lder and into her left leg. She has muscle spasms in between her shoulder blades also. She has itching in her left shoulder and down her left arm, also in her between her shoulder bl ades which has been present for "quite a while". She says it feels like getting poked with needles in those areas and makes her want to itch. She is S/P a C5-6 ACDF on 04/23/14. Her next visit in office is on 08/03/14. She would like to pick these Rx's up in our office onc e approved. Please approve/deny Rx. BELGICA JACKSON documented in this encounter Plan of Treatment Not on filedocumented as of this encounter Visit Diagnoses + + | Diagnosis | + + | S/P cervical spinal fusion - Primary Arthrodesis status | + + documented in this encounter
--- OUTSIDE RECORDS SUMMARY | ~2020-07-30 | XMS | Encounter Summary ---
Demographics + + + | Address | [address] | | | [place] [address] | + + + | Home Phone | | + + + | Preferred Language | Unknown | + + + | Marital Status | | + + + | Quaker Affiliation | 1013 | + + + | Race | White | + + + | Ethnic Group | Not or | + + + Author + + + | Author | [facility] | | | and [place] | + + + | Organization | [facility] | | | [...] Team Providers + +------+ + | Care Rn Private Duty Name | Role | Phone | + +------+ + | No, Unknownpcp | PCP | | + +------+ + Encounter Details +--------+ + + + + | Date | Type | Department | Care Team | Description | +--------+ + + + + | 07/16/ | Documentati | [facility] | Mehrdad Saenz M, PT | | | 2013 | on | MED CTR THERAPY PT | [address] | | | | | [address] | [place], [place] | | | | | [place], [place] | [address] | | | | | [address] | | | | | | [phone] | | | +--------+ + + + [...] + documented as of this encounter Progress Mehrdad Clemens, PT - 07/16/2014 3:24 PM [facility] OP [address] [place] [address] Cancellation/No Show Date: 07/16/2014 Patient Information Patient Name: Gale Godinez Date of : 1980 Age: 34 y.o. Reason for missed visit: Thought patient had no showed but on further looking into it it lo oks like she was discharged yesterday at the pool and they hadn't cancelled the remaining vi sits yet. Phone call placed: yes Plan: Left message for patient to call prior to realizing she had been discharged. Electronically signed by: Mehrdad Saenz, PT, 07/16/2014 15:24 Patient Name: Gale Godinez/: 1980/ documented in this enc ounter Plan of Treatment Not on filedocumented as of this encounter Visit Diagnoses Not on filedocumented in this encounter"
--- OUTSIDE RECORDS SUMMARY | ~2020-07-30 | XMS | Encounter Summary ---
Demographics + + + | Address | [address] | | | [place] [address] | + + + | Home Phone | | + + + | Preferred Language | Unknown | + + + | Marital Status | | + + + | Taoism Affiliation | 1013 | + + + | Race | White | + + + | Ethnic Group | Not or | + + + Author + + + | Author | [facility] | | | and [place] | + + + | Organization | [facility] | | | and [...] Team Providers + +------+ + | Care Butcher Supervisor Name | Role | Phone | + +------+ + | Ji Tony DO | PCP | | + +------+ + Encounter Details +--------+ + + + + | Date | Type | Department | Care Team | Description | +--------+ + + + + | 04/05/ | Hospital | [facility] | Kg Lemons, | Neck pain | | 2018 | Encounter | MED CTR XRAY [address] | DO [address] | | | | | [place] | [address] [place], [place] | | | | | [place] [address] | [address] | | | | | [phone] | | | +--------+ + + + + Social History + + + +--------+------+ | Tobacco Use | Types | Packs/Day | Years | Date | | | | | Used | | + + + +--------+------+ | Current Every Day | Cigarettes | | | | | Smoker | | | | | + + + +--------+------+ + +---+---+---+ | Smokeless Tobacco: | | | | | Never Used | | | | + +---+---+---+ + + | Comments: Vape Mod - 6mg Nicotine in 2 days | + + + + +---------+ + | Alcohol Use | Drinks/Week | oz/Week | Comments | + + +---------+ + | No | | | past | + + +---------+ + + + + | Sex Assigned at | Date Recorded | | | | + + + | Not on file | | + + + documented as of this encounter Medications at Time of Discharge + + + +---------+ + + | Medication | Sig | Dispensed | Refills | Start | End Date | | | | | | Date | | + + + +---------+ + + | ibuprofen | Take 1 tablet by | | 0 | 02/22/20 | | | (ADVIL,MOTRIN) 800 | mouth 3 times daily | | | 18 | | | MG tablet | as needed. | | | | | + + + +---------+ + + | methylPREDNISolone | Follow package | 21 | 0 | 04/05/20 | | | (MEDROL DOSEPAK) 4 | directions. | tablet | | 18 | | | mg tablet | | | | | | + + + +---------+ + + | VENTOLIN HFA 108 | Take 2 puffs by | | 1 | 03/26/20 | | | (90 Base) MCG/ACT | mouth 4 times daily. | | | 18 | | | inhaler | | | | | | + + + +---------+ + + documented as of this encounter Plan of Treatment Not on filedocumented as of this encounter Procedures + +--------+ + + + | Procedure Name | Priori | Date/Time | Associated Diagnosis | Comments | | | ty | | | | + +--------+ + + + | XR CERVICAL SPINE 4 | Routin | 04/05/2018 | Neck pain | Results for this | | OR 5 VWS | e | 9:29 AM | | procedure are in the | | | | PDT | | results section. | + +--------+ + + + documented in this encounter Results XR Cervical Spine 4 [...]
--- OUTSIDE RECORDS SUMMARY | ~2020-07-30 | XMS | Encounter Summary ---
Demographics + + + | Address | [address] | | | [place] [address] | + + + | Home Phone | | + + + | Preferred Language | Unknown | + + + | Marital Status | | + + + | Baptism Affiliation | 1013 | + + + | Race | White | + + + | Ethnic Group | Not or | + + + Author + + + | Author | [facility] | | | and [place] | + + + | Organization | [facility] | | [...] Team Providers + +------+ + | Care Criminal Justice Teacher Name | Role | Phone | + +------+ + | Adrien Chatterjee DO | PCP | | + +------+ + Reason for Visit + + + | Reason | Comments | + + + | Therapy Daily | | | Treatment | | + + + Evaluate & Treat (Routine) +--------+ + + + + + | Status | Reason | Specialty | Diagnoses / | Referred By | Referred To | | | | | Procedures | Contact | Contact | +--------+ + + + + + | Closed | Specialty | Physical | Diagnoses | [place], | [facility] | | | Services | Therapy / | Cervical | David, | Pt Op [address] | | | Required | Rehabilitatio | radicular | PA-C [address] | [address] | | | | n | pain S/P | [address] | [place], | | | | | cervical | [place], | [place] [address] | | | | | spinal | [place] [address] | Phone: | | | | | fusion | Phone: | [phone] | | | | | Procedures | [phone] | Fax: | | | | | pt eval | Fax: | [phone] | | | | | | [phone] | | +--------+ + + + + + Encounter Details +--------+---------+ + + + | Date | Type | Department | Care Team | Description | +--------+---------+ + + + | 06/16/ | Office | [facility] | David Ceballos, | Neck pain on left | | 2013 | Visit | MED CTR THERAPY PT | PA-C [address] | side (Primary Dx); | | | | OP [address] | [place] | Posture abnormality; | | | | [place], [place] | [address] | Neuropathic pain, | | | | [address] | | arm; Fusion of spine | | | | [phone] | Mehrdad Saenz, PT | of cervical region; | | | | | [address] | Cervical | | | | | [place] | spondylosis without | | | | | [address] | myelopathy; Spinal | | | | | | stenosis in cervical | | | | | | region | +--------+---------+ + + + Social History [...] documented as of this encounter Progress Notes Mehrdad Saenz, PT - 06/16/2014 12:03 PM PDT [facility] CTR THERAPY PT OP [address] [place] [address] Physical Therapy Daily Treatment Note Date: 06/16/2014 Patient Information Patient Name: Gale Godinez Date of : 1980 Age: 33 y.o. Encounter Diagnoses Code Name Primary? 723.1 Neck pain on left side Yes 781.92 Posture abnormality 723.4 Neuropathic pain, arm 756.15 Fusion of spine of cervical region 721.0 Cervical spondylosis without myelopathy 723.0 Spinal stenosis in cervical region Date of Onset: Referring Provider: David Ceballos PA-C Rehab Precautions 06/04/14 Rehab Precautions Precautions Cervical Rehab Learning Style 06/04/14 Learning Style Patient's Optimum Learning Style observation, performance of task Today's Treatment Patient Name: Gale Godinez/: 1980/ Start Time: 844 Stop time: 929 Duration: 45 minutes Timed Treatment Codes: 45 minutes # of PT Visits to Date: Subjective: Patient reported that her eleven year old daughter who tends to be violent and is difficult to control was arrested yesterday and taken to [facility] longterm. Pain Assessment Pain Rating Pre Assessment: 8 Location: neck, shoulder, arm, hand burning, spasming in upper back across the shoulders Objective Patient/Caregiver Education Learner: Patient Readiness: Eager Method: Explanation;Demonstration Response: Verbalizes Understanding;Demonstrated Understanding Comment: Postural alignment, body mechanics, ergonomics awareness training, functional ROM , keep moving with gentle ROM, pacing, work rest balance Learner: Significant Readiness: Acceptance Method: Explanation Response: Verbalizes Understanding Comment: same as above Posture/Cervical/Back Posture: Chin tuck;Scapular retractions/adduction Cervical program: Upper cervical rotation with chin tuck;Lateral flexion Neuromuscular re-education Functional Mobility Note: Patient seen for facilitation to encourage increased ROM and gent le assisted stretches as well as to decrease spasming, facilitation to increase awareness of shoulder position and head position and encourage neutral posture and decreased tightness, desensitization training especially over the left shoulder Assessment Patient arrived with both shoulders elevated and protracted, slumped posture, spasming and sensitivity to touch. She had a good response to the neuromuscular reeducation with decrea sed spasming, improved alignment and imrproved awareness. Her spouse also articulated under standing and agerness to support the patient through this learning process. Rehabilitation potential: Patient demonstrates good potential to achieve established goals to address the documented impairments by participating in skilled physical therapy services. Next Visit Information: neuromuscular reeducation, body mechanics, postural alignment, ergo nomics awarenss, precautions, exercises, education, possible kinesiotape, and aquatic therap y Electronically signed by: Mehrdad Saenz PT, 06/16/2014 12:03 Patient Name: Gale Godinez/: 1980/ y signed by Mehrdad Saenz PT at 06/16/2014 12:04 PM PDTdocumented in this encounter Plan of Treatment Not on filedocumented as of this encounter Visit Diagnoses + + | Diagnosis | + + | Neck pain on left side - Primary Cervicalgia | + + | Posture abnormality Abnormal posture | + + | Neuropathic pain, arm Brachial neuritis or radiculitis nos | + + | Fusion of spine of cervical region Congenital fusion of spine (vertebra) | + + | Cervical spondylosis without myelopathy | + + | Spinal stenosis in cervical region | + + documented in this encounter"
--- OUTSIDE RECORDS SUMMARY | ~2020-07-30 | XMS | Encounter Summary ---
Demographics + + + | Address | [address] | | | [place] [address] | + + + | Home Phone | | + + + | Preferred Language | Unknown | + + + | Marital Status | | + + + | Congregation Affiliation | 1013 | + + + | Race | White | + + + | Ethnic Group | Not or | + + + Author + + + | Author | [facility] | | | and [place] | + + + | Organization | [facility] | | | [...] Team Providers + +------+ + | Care Certified Medical Coder Name | Role | Phone | + +------+ + | Adrien Chatterjee DO | PCP | | + +------+ + Encounter Details +--------+ + + + + | Date | Type | Department | Care Team | Description | +--------+ + + + + | 12/25/ | Hospital | [facility] | Kg Lemons, | Cervical | | 2015 | Encounter | MED CTR XRAY [address] | DO [address] | spondylosis; S/P | | | | [place] | [address] [place], [place] | cervical spinal | | | | [place] [address] | [address] | fusion; | | | | [phone] | | Osteoarthritis of | | | | | | spine with | | | | | | radiculopathy, | | | | | | lumbar region; | | | | | | Lumbar stenosis; | | | | | | Lumbar radicular | | | | | | pain; Midline low | | | | | | back pain with | | | | | | sciatica, sciatica | | | | | | laterality | | | | | | unspecified | +--------+ + + + + Social [...] + + + +---------+ + + | cyclobenzaprine | | | 0 | 11/24/19 | | | (FLEXERIL) 10 mg | | | | 15 | 8 | | tablet | | | | | | + + + +---------+ + + | diazepam (VALIUM) | Take 1 tablet by | 60 | 0 | 07/14/20 | | | 5 mg | mouth every 6 hours | tablet | | 14 | 8 | | tabletIndications: | as needed (Muscle | | | | | | S/P cervical spinal | spasm). | | | | | | fusion | | | | | | + + + +---------+ + + | diclofenac | | | 0 | 11/24/19 | | | (VOLTAREN) 75 mg EC | | | | 15 | 8 | | tablet | | | | | | + + + +---------+ + + | DULoxetine | Take 40 mg by mouth | | 0 | | | | (CYMBALTA) 20 mg | Daily. | | | | 8 | | capsule | | | | | | + + + +---------+ + + | ferrous sulfate | Take 325 mg by mouth | | 0 | | | | (IRON) 325 (65 FE) | Daily. | | | | 8 | | MG TABS | | | | | | + + + +---------+ + + | | Take 1-2 tablets by | 60 | 0 | 07/14/20 | | | HYDROcodone-acetamin | mouth every 6 hours | tablet | | 14 | 8 | | ophen (NORCO) 5-325 | as needed for Pain. | | | | | | mg per | | | | | | | tabletIndications: | | | | | | | S/P cervical spinal | | | | | | | fusion | | | | | | + + + +---------+ + + | | | | 0 | 12/16/19 | | | oxyCODONE-acetaminop | | | | 15 | 8 | | hen (PERCOCET) 5-325 | | | | | | | mg per tablet | | | | | | + + + +---------+ + + | pregabalin | Take 1 capsule by | 90 | 2 | 09/14/20 | | | (LYRICA) 25 mg | mouth 3 times daily. | capsule | | 14 | 5 | | capsuleIndications: | | | | | | | Neuropathic pain | | | | | | + + + +---------+ + + documented as of this encounter Plan of Treatment Not on filedocumented as of this encounter Procedures + +--------+ + + + | Procedure Name | Priori | Date/Time | Associated Diagnosis | Comments | | | ty | | | | + +--------+ + + + | XR LUMBAR SPINE 4 + | Routin | 12/25/2014 | Cervical | Results for this | | VW | e | 11:08 AM | spondylosis S/P | procedure are in the | | | | PDT | cervical spinal | results section. | | | | | fusion | | | | | | Osteoarthritis of | | | | | | spine with | | | | | | radiculopathy, | | | | | | lumbar region | | | | | | Lumbar stenosis | | | | | | Lumbar radicular | | | | | | pain Midline low | | | | | | back pain with | | | | | | sciatica, sciatica | | | | | | laterality | | | | | | unspecified | | + +--------+ + + + documented in this encounter Results XR Lumbar Spine 4 + Vw (12/25/2014 11:08 AM PDT) + + | Specimen | + + | | + + + + + | Narrative | Performed At | + + + | XR LUMBAR SPINE 4 + VW. 12/25/2014 11:07 AM HISTORY: Lumbago . | [facility] | | COMPARISON: MRI lumbar spine 03/30/2014 FINDINGS: Five | [facility] | | lumbar type vertebral bodies. There is exaggeration of the lumbar | [facility] | | lordosis, with appearance of exaggeration of thoracic kyphosis in the | - IMAGING | | lower thoracic spine. Alignment is otherwise maintained on upright | | | neutral and flexion views. There is retrolisthesis of L1 on L2 on | | | the extension view . There is mild degenerative disc disease, | | | greatest in the lower thoracic spine and upper lumbar spine. | | | Vertebral body heights are maintained. Facet degenerative change | | | in the lower lumbar spine. IMPRESSION - Degenerative disc | | | disease and spondylotic change, with spondylolisthesis, as described | | | above Dictated and Signed by: Ap Vazquez MD | | | Electronically signed: 12/25/2014 6:25 PM | | + + + + + | Procedure Note | + + | Ant, Rad Results In - 12/25/2014 6:28 PM PDT XR LUMBAR SPINE 4 + VW. 12/25/2014 | | 11:07 AMHISTORY: Lumbago . COMPARISON: MRI lumbar spine 03/30/2014FINDINGS:Five lumbar | | type vertebral bodies. There is exaggeration of the lumbarlordosis, with appearance of | | exaggeration of thoracic kyphosis in the lowerthoracic spine. Alignment is otherwise | | maintained on upright neutral andflexion views. There is retrolisthesis of L1 on L2 on | | the extension view . There is mild degenerative disc disease, greatest in the lower | | thoracic spineand upper lumbar spine. Vertebral body heights are maintained. | | Facetdegenerative change in the lower lumbar spine.IMPRESSION -Degenerative disc disease | | and spondylotic change, with spondylolisthesis, asdescribed aboveDictated and Signed | | by: Ap Vazquez MD Electronically signed: 12/25/2014 6:25 PM | |flexion views. There is retrolisthesis of L1 on L2 on the extension view . | |There is mild degenerative disc disease, greatest in the lower thoracic spine | |and upper lumbar spine. Vertebral body heights are maintained. Facet | |degenerative change in the lower lumbar spine. | | | | | |IMPRESSION - | |Degenerative disc disease and spondylotic change, with spondylolisthesis, as | |described above | | | |Dictated and Signed by: Ap Vazquez MD | | Electronically signed: 12/25/2014 6:25 PM | + + + + + + + | Performing | Address | City/State/Zipcode | Phone Number | | Organization | | | | + + + + + | [facility] | [address] | [place], [place] | [phone] | | [facility] | | [address] | | | - IMAGING | | | | + + + + + documented in this encounter Visit Diagnoses + + | Diagnosis | + + | Cervical spondylosis Cervical spondylosis without myelopathy | + + | S/P cervical spinal fusion Arthrodesis status | + + | Osteoarthritis of spine with radiculopathy, lumbar region | + + | Lumbar stenosis Spinal stenosis, lumbar region, without neurogenic claudication | + + | Lumbar radicular pain Thoracic or lumbosacral neuritis or radiculitis, unspecified | + + | Midline low back pain with sciatica, sciatica laterality unspecified | + + documented in this encounter"
--- OUTSIDE RECORDS SUMMARY | ~2020-07-30 | XMS | Encounter Summary ---
Demographics + + + | Address | [address] | | | [place] [address] | + + + | Home Phone | | + + + | Preferred Language | Unknown | + + + | Marital Status | | + + + | Buddhist Affiliation | 1013 | + + + | Race | White | + + + | Ethnic Group | Not or | + + + Author + + + | Author | [facility] | | | and [place] | + + + | Organization | [facility] | | | and [...] Team Providers + +------+ + | Care Back Roll Lathe Operator Name | Role | Phone | + +------+ + | Adrien Chatterjee DO | PCP | | + +------+ + Reason for Visit +--------+--------+ + | Reason | Onset | Comments | | | Date | | +--------+--------+ + | Other | 12/29/ | Lyrica | | | 2014 | | +--------+--------+ + Encounter Details +--------+ + + + + | Date | Type | Department | Care Team | Description | +--------+ + + + + | 12/29/ | Telephone | [facility] | Trudy Cooper | Guzman (Alpesh) | | 2014 | | NEUROLOGY [facility] | [address] | | | | | [address], | | | | | | [address] [place] | | | | | | [place] [address] | | | | | | [phone] | | | +--------+ + + + [...] this encounter Miscellaneous Notes Telephone Encounter - Trudy Cooper RN - 12/29/2014 10:02 AM PDTLyrica refill called into [facility]. Patient notified. documented in this encounter Plan of Treatment Not on filedocumented as of this encounter Visit Diagnoses Not on filedocumented in this encounter"
--- OUTSIDE RECORDS SUMMARY | ~2020-07-30 | XMS | Encounter Summary ---
Demographics + + + | Address | [address] | | | [place] [address] | + + + | Home Phone | | + + + | Preferred Language | Unknown | + + + | Marital Status | | + + + | Islam Affiliation | 1013 | + + + | Race | White | + + + | Ethnic Group | Not or | + + + Author + + + | Author | [facility] | | | and [place] | + + + | Organization | [facility] | | | [...] Team Providers + +------+ + | Care Cycle Counter Name | Role | Phone | + +------+ + | dArien Chatterjee DO | PCP | | + +------+ + Encounter Details +--------+ + + + + | Date | Type | Department | Care Team | Description | +--------+ + + + + | // | Orders Only | [facility] | Kg Lemons, | Anemia (Primary Dx); | | 2013 | | NEUROSURGERY [address] | DO [address] | Migraines; History | | | | [address] | [address] [place], [place] | of tobacco use | | | | [place], [place] | [address] | | | | | [address] | | | | | | [phone] | | | +--------+ + + + [...] of this encounter Plan of Treatment + +------+--------+ + + | Name | Type | Priori | Associated Diagnoses | Order Schedule | | | | ty | | | + +------+--------+ + + | ECG 12 lead | ECG | Routin | Anemia Migraines | 1 Occurrences | | | | e | History of tobacco | starting 04/14/2014 | | | | | use | until 04/14/2015 | + +------+--------+ + + documented as of this encounter Results XR Chest PA and Lateral (04/16/2014 11:05 AM PDT) + + | Specimen | + + | | + + + + + | Narrative | Performed At | + + + | TWO-VIEW CHEST: 04/16/2014 11:05 AM CLINICAL HISTORY: pre | MISCELANIOUS | | operative exam COMPARISON: None FINDINGS: The heart size is | LAB | | normal. Aorta and pulmonary vasculature are normal. No areas of | | | abnormal lung density. No effusion or pneumothorax. No bony or upper | | | abdominal abnormality. IMPRESSION - Negative study the chest. | | | Dictated and Signed by: Guzman Billy MD Electronically signed: | | | 04/16/2014 11:34 AM | | + + + + + | Procedure Note | + + | Ant, Rad Results In - 04/16/2014 11:37 AM PDT TWO-VIEW CHEST: 04/16/2014 11:05 AM | | | | CLINICAL HISTORY: pre operative exam | | | | COMPARISON: None | | | | FINDINGS: The heart size is normal. Aorta and pulmonary vasculature are normal. | | No areas of abnormal lung density. No effusion or pneumothorax. No bony or upper | | abdominal abnormality. | | | | IMPRESSION - Negative study the chest. | | | | Dictated and Signed by: Guzman Billy MD | | Electronically signed: 04/16/2014 11:34 AM | + + + +---------+ + + | Performing | Address | City/State/Zipcode | Phone Number | | Organization | | | | + +---------+ + + | [facility] | | | [phone] | + +---------+ + + | MISCELANIOUS LAB | | | [phone] | + +---------+ + + Basic Metabolic Panel (04/16/2014 10:25 AM PDT) + + + + + + | Component | Value | Ref Range | Performed | Pathologist | | | | | At | Signature | + + + + + + | Na | 140 | 136 - 149 | [facility] | | | | | mmol/L | [facility] | | | | | | [facility] | | | | | | [facility] - | | | | | | LABORATORY | | + + + + + + | K | 3.7 | 3.5 - 5.1 | [facility] | | | | | mmol/L | [facility] | | | | | | [facility] | | | | | | C[facility] - | | | | | | LABORATORY | | + + + + + + | Cl | 110 (H) | 98 - 109 mmol/L | [facility] | | | | | | [facility] | | | | | | [facility] | | | | | | C[facility] - | | | | | | LABORATORY | | + + + + + + | CO2 | 21 (L) | 24 - 31 mmol/L | [facility] | | | | | | [facility] | | | | | | [facility] | | | | | | [facility] - | | | | | | LABORATORY | | + + + + + + | Anion Gap | 9 | 3 - 16 mmol/L | [facility] | | | | | | [facility] | | | | | | [facility] | | | | | | CENTER - | | | | | | LABORATORY | | + + + + + + | Glucose | 131 (H) | 70 - 109 mg/dL | [facility] | | | | | | [facility] | | | | | | [facility] | | | | | | C[facility] - | | | | | | LABORATORY | | + + + + + + | BUN | 9 | 7 - 18 mg/dL | [facility] | | | | | | [facility] | | | | | | [facility] | | | | | | [facility] - | | | | | | LABORATORY | | + + + + + + | Creatinine | 0.65 | 0.60 - 1.30 | [facility] | | | | | mg/dL | [facility] | | | | | | [facility] | | | | | | CENTER - | | | | | | LABORATORY | | + + + + + + | eGFR, | >60Comment: GLOMERULAR | >=60 | [facility] | | | non- | FILTRATION | mL/min/1.73m2 | [facility] | | | English | RATE,ESTIMATED | | MEDICAL | | | | mL/min/1.91c7Ujzw than | | CENTER - | | | | 60 Chronic kidney | | LABORATORY | | | | disease,if found over a | | | | | | 3-month period.Less than | | | | | | 15 Kidney failureFor | | | | | | | | | | | | Americans,multiply the | | | | | | calculated GFR by 1.21. | | | | | | | | | | + + + + + + | Calcium | 8.4 | 8.3 - 10.5 | [facility] | | | | | mg/dL | [facility] | | | | | | MEDICAL | | | | | | CENTER - | | | | | | LABORATORY | | + + + + + + | BUN/Creatin | 13.8 | | [facility] | | | ine Ratio | | | [facility] | | | | | | [facility]ICAL | | | | | | CENTER - | | | | | | LABORATORY | | + + + + + + + + | Specimen | + + | Blood | + + + + + + + | Performing | Address | City/State/Zipcode | Phone Number | | Organization | | | | + + + + + | [facility] | [address] | [place] | [phone] | | [facility] | | [address] | | | - LABORATORY | | | | + + + + + | [facility] | [address] | [place], [place] | | | [facility] | | [id number] | | | - LABORATORY | | | | + + + + + Protime INR (04/16/2014 10:25 AM PDT) + +-------+ + + + | Component | Value | Ref Range | Performed | Pathologist | | | | | At | Signature | + +-------+ + + + | Prothrombin | 12.1 | 11.3 - 13.9 | [facility] | | | Time | | seconds | [facility] | | | | | [facility] | | | | | | [facility] - | | | | | | LABORATORY | | + +-------+ + + + | INR | 0.90 | 0.90 - 1.10 | [facility] | | | | | | [facility] | | | | | | [facility] | | | | | | CENTER - | | | | | | LABORATORY | | + +-------+ + + + + + | Specimen | + + | Blood | + + + + + + + | Performing | Address | City/State/Zipcode | Phone Number | | Organization | | | | + + + + + | [facility] | [address] | [place], [place] | [phone] | | [facility] | | [address] | | | - LABORATORY | | | | + + + + + | [facility] | [address] | [place], [place] | | | [facility] | | [address] [place] [address] | | | - LABORATORY | | | | + + + + + PTT (04/16/2014 10:25 AM PDT) + +-------+ + + + | Component | Value | Ref Range | Performed | Pathologist | | | | | At | Signature | + +-------+ + + + | aPTT | 28 | 22 - 36 seconds | [facility] | | | | | | [facility] | | | | | | [facility]ICAL | | | | | | CENTER - | | | | | | LABORATORY | | + +-------+ + + + + + | Specimen | + + | Blood | + + + + + + + | Performing | Address | City/State/Zipcode | Phone Number | | Organization | | | | + + + + + | [facility] | [address] | [place] | [phone] | | [facility] | | [address] | | | - LABORATORY | | | | + + + + + | [facility] | [address] | [place], [place] | | | [facility] | | [address] | | | - LABORATORY | | | | + + + + + CBC with Differential (04/16/2014 10:25 AM PDT) + + + + + + | Component | Value | Ref Range | Performed | Pathologist | | | | | At | Signature | + + + + + + | White Blood | 13.1 (H) | 4.0 - 11.0 K/uL | [facility] | | | Cells | | | [facility] | | | | | | MEDICAL | | | | | | CENTER - | | | | | | LABORATORY | | + + + + + + | Red Blood | 3.86 | 3.70 - 5.20 | [facility] | | | Cells | | M/uL | [facility] | | | | | | MEDICAL | | | | | | CENTER - | | | | | | LABORATORY | | + + + + + + | Hemoglobin | 11.4 (L) | 11.5 - 16.0 | [facility] | | | | | g/dL | [facility] | | | | | | MEDICAL | | | | | | CENTER - | | | | | | LABORATORY | | + + + + + + | Hematocrit | 34.1 | 34.0 - 47.0 % | [facility] | | | | | | [facility] | | | | | | MEDICAL | | | | | | CENTER - | | | | | | LABORATORY | | + + + + + + | MCV | 88.3 | 83.0 - 101.0 fL | [facility] | | | | | | [facility] | | | | | | MEDICAL | | | | | | CENTER - | | | | | | LABORATORY | | + + + + + + | MCH | 29.6 | 28.0 - 35.0 pg | [facility] | | | | | | [facility] | | | | | | MEDICAL | | | | | | CENTER - | | | | | | LABORATORY | | + + + + + + | MCHC | 33.5 | 32.0 - 36.0 | [facility] | | | | | g/dL | [facility] | | | | | | MEDICAL | | | | | | CENTER - | | | | | | LABORATORY | | + + + + + + | RDW-CV | 15.5 (H) | <15.0 % | [facility] | | | | | | [facility] | | | | | | MEDICAL | | | | | | CENTER - | | | | | | LABORATORY | | + + + + + + | Platelet | 199 | 140 - 440 K/uL | [facility] | | | Count | | | [facility] | | | | | | MEDICAL | | | | | | CENTER - | | | | | | LABORATORY | | + + + + + + | MPV | 11.1 | fL | [facility] | | | | | | [facility] | | | | | | MEDICAL | | | | | | CENTER - | | | | | | LABORATORY | | + + + + + + | % | 67.6 | 45.0 - 82.0 % | [facility] | | | Neutrophils | | | [facility] | | | | | | MEDICAL | | | | | | CENTER - | | | | | | LABORATORY | | + + + + + + | % | 22.3 | 20.0 - 45.0 % | [facility] | | | Lymphocytes | | | [facility] | | | | | | MEDICAL | | | | | | CENTER - | | | | | | LABORATORY | | + + + + + + | % Monocytes | 6.3 | 4.0 - 12.0 % | [facility] | | | | | | [facility] | | | | | | MEDICAL | | | | | | CENTER - | | | | | | LABORATORY | | + + + + + + | % | 2.6 | 0.0 - 5.0 % | [facility] | | | Eosinophils | | | [facility] | | | | | | MEDICAL | | | | | | CENTER - | | | | | | LABORATORY | | + + + + + + | % Basophils | 1.2 (H) | 0.0 - 1.0 % | [facility] | | | | | [facility] | | | | | | [facility] | | | | | | CENTER - | | | | | | LABORATORY | | + + + + + + | Absolute | 8.80 (H) | 1.80 - 8.50 | [facility] | | | Neutrophils | | K/uL | [facility] | | | | | | MEDICAL | | | | | | CENTER - | | | | | | LABORATORY | | + + + + + + | Absolute | 2.90 | 0.60 - 3.20 | [facility] | | | Lymphocytes | | K/uL | [facility] | | | | | | MEDICAL | | | | | | CENTER - | | | | | | LABORATORY | | + + + + + + | Absolute | 0.80 | 0.00 - 1.00 | [facility] | | | Monocytes | | K/uL | [facility] | | | | | | MEDICAL | | | | | | CENTER - | | | | | | LABORATORY | | + + + + + + | Absolute | 0.30 | 0.00 - 0.40 | [facility] | | | Eosinophils | | K/uL | [facility] | | | | | | MEDICAL | | | | | | CENTER - | | | | | | LABORATORY | | + + + + + + | Absolute | 0.20 (H) | 0.00 - 0.10 | [facility] | | | Basophils | | K/uL | [facility] | | | | | | MEDICAL | | | | | | CENTER - | | | | | | LABORATORY | | + + + + + + + + | Specimen | + + | Blood | + + + + + + + | Performing | Address | City/State/Zipcode | Phone Number | | Organization | | | | + + + + + | [facility] | [address] | [place], [place] | [phone] | | [facility] | | [address] | | | - LABORATORY | | | | + + + + + | [facility] | [address] | [place], [place] | | | [facility] | | [id number] [place] [address] | | | - LABORATORY | | | | + + + + + documented in this encounter Visit Diagnoses + + | Diagnosis | + + | Anemia - Primary Anemia, unspecified | + + | Migraines Migraine, unspecified, without mention of intractable migraine without | | mention of status migrainosus | + + | History of tobacco use Personal history of tobacco use, presenting hazards to health | + + documented in this encounter"
--- OUTSIDE RECORDS SUMMARY | ~2020-07-30 | XMS | Encounter Summary ---
Demographics + + + | Address | [address] | | | [place] [address] | + + + | Home Phone | | + + + | Preferred Language | Unknown | + + + | Marital Status | | + + + | Catholic Affiliation | 1013 | + + + | Race | White | + + + | Ethnic Group | Not or | + + + Author + + + | Author | [facility] | | | and [place] | + + + | Organization | [facility] | | | [...] Team Providers + +------+ + | Care Triage Specialist Name | Role | Phone | + +------+ + | Adrien Chatterjee DO | PCP | | + +------+ + Reason for Visit +--------+--------+ + | Reason | Onset | Comments | | | Date | | +--------+--------+ + | Other | 04/28/ | | | | 2013 | | +--------+--------+ + Encounter Details +--------+ + + + + | Date | Type | Department | Care Team | Description | +--------+ + + + + | 04/28/ | Telephone | [facility] | Kg Lemons, | Other | | 2013 | | NEUROSURGERY [address] | DO [address] | | | | | [address] | [address] [place], [place] | | | | | [place], [place] | [id number] | | | | | [address] | | | | | | [phone] | | | +--------+ + + + [...] this encounter Miscellaneous Notes Telephone Encounter - Germán Jackson Cert MA - 04/28/2014 10:33 AM PDTReturned patient's ca ll. GERMÁN JACKSON elephone EncounBrenda Franks - 04/28/2014 10:28 AM PDTPatient called returning germán's call please a dvise. documented in this encounter Plan of Treatment Not on filedocumented as of this encounter Visit Diagnoses Not on filedocumented in this encounter"
--- OUTSIDE RECORDS SUMMARY | ~2020-07-30 | XMS | Encounter Summary ---
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 without evidence of | | hardwarecomplication or subsidence. Reversal of the cervical lordosis centered at | | C3-4,as can be seen with positioning versus muscle spasm. Uncinate process spurringin | | the mid cervical spine, with facet degenerative change and a similardistribution. Gas | | collection in the prevertebral soft tissues extending to theskull base, presumably | | postsurgical in nature. Degenerative change is presentat the atlantoaxial | | articulation.IMPRESSION -Status post anterior cervical fusion at C5-6, without evidence | | of hardwarecomplication. Gas collection in the prevertebral soft tissues extending | | fromthe level of C4 to the skull base, presumably postsurgical in nature. | | Recommendcorrelation with timing of surgery.Dictated and Signed by: Ap Vazquez MD | | Electronically signed: 04/24/2014 11:41 AM | |at the atlantoaxial articulation. | | | | | |IMPRESSION - | |Status post anterior cervical fusion at C5-6, without evidence of hardware | |complication. Gas collection in the prevertebral soft tissues extending from | |the level of C4 to the skull base, presumably postsurgical in nature. Recommend | |correlation with timing of surgery. | | | |Dictated and Signed by: Ap Vazquez MD | | Electronically signed: 04/24/2014 11:41 AM | + + + +---------+ + + | Performing | Address | City/State/Zipcode | Phone Number | | Organization | | | | + +---------+ + + | [facility] | | | [phone] | + +---------+ + + | MISCELANIOUS LAB | | | [phone] | + +---------+ + + Type and Screen (04/23/2014 10:59 AM PDT) + + + + + + | Component | Value | Ref Range | Performed | Pathologist | | | | | At | Signature | + + + + + + | ABO | A | | [facility] | | | | [facility] | | [facility] - | | | | | | [facility] BANK | | + + + + + + | Rh Type | Positive | | [facility] | | | [facility] - | | | | | | [facility]LOOD BANK | | + + + + + + | Antibody | Negative | | [facility] | | | Screen | | | [facility] | | | [facility] | [facility] | | | | | [facility] - | | | | | | BLOOD BANK | | + + + + + + + + | Specimen | + + | Blood specimen | | (specimen) | + + + + + + + | Performing | Address | City/State/Zipcode | Phone Number | | Organization | | | | + + + + + | [facility] | [address] | [place] | | | [facility] | | [address] | | | - BLOOD BANK | | | | + + + + + ECG 12 lead (04/17/2014 8:08 PM PDT) + + + | Narrative | Performed At | + + + | Parish Joya MD 04/17/2014 20:08 Adult ECG Report | | | Name: Gale Godinez Age: 33 y.o. Gender: female 04/16/14 at | | | 10:26 Narrative Interpretation: Sinus bradycardia. Prolonged | | | QTC. Normal axis. | | + + + + + | Procedure Note | + + | Parish Joya MD - 04/17/2014 8:08 PM PDT Adult ECG Report | | | | Name: Gale Godinez | | Age: 33 y.o. | | Gender: female | | 04/16/14 at 10:26 | | | | Narrative Interpretation: Sinus bradycardia. Prolonged QTC. Normal axis. | + + documented in this encounter Visit Diagnoses + + | Diagnosis | + + | Cervical spondylosis without myelopathy | + + | Spinal stenosis in cervical region | + + | Brachial neuritis or radiculitis NOS Brachial neuritis or radiculitis nos | + + | Cervicalgia | + + documented in this encounter Administered Medications + +--------+ +--------+------+------+ | Medication Order | MAR | Action | Dose | Rate | Site | | | Action | Date | | | | + +--------+ +--------+------+------+ | fentaNYL injection 25-50 mcg | Given | 04/23/20 | 25 mcg | | | | 25-50 mcg, Intravenous, EVERY 5 | | 14 4:45 | | | | | MIN PRN, Pain, Starting Gila | | PM PDT | | | | | 04/23/14 at 1541, Maximum total | | | | | | | dose 250 mcg. PACU IV Narcotic | | | | | | | Priority: Only use fentanyl for | | | | | | | immediate post-op pain (one dose) | | | | | | | or breakthrough pain when any | | | | | | | other IV narcotics ordered have | | | | | | | been ineffective (if ordered). | | | | | | | If both morphine and | | | | | | | hydromorphone are ordered, use | | | | | | | morphine first, and use | | | | | | | hydromporphone if morphine | | | | | | | ineffective., Recovery/Phase I | | | | | | + +--------+ +--------+------+------+ +-------+ +--------+---+---+ | Given | 04/23/20 | 25 mcg | | | | | 14 4:40 | | | | | | PM PDT | | | | +-------+ +--------+---+---+ +---+---+ | | | +---+---+ + +-------+ + +---+---+ | methocarbamol (ROBAXIN) tablet | Given | 04/23/20 | 1,500 mg | | | | 1,500 mg 1,500 mg, Oral, EVERY 6 | | 14 6:14 | | | | | HOURS PRN, Muscle spasms, | | PM PDT | | | | | Starting [facility] 04/23/14 at 1628, | | | | | | | Post-op/Phase II | | | | | | + +-------+ + +---+---+ +---+---+ | | | +---+---+ + +---------+ +----+---+---+ | sodium chloride 0.9% (NS) | New Bag | 04/23/20 | mL | | | | infusion at 100 mL/hr, | | 14 2:45 | | | | | Intravenous, CONTINUOUS, Starting | | PM PDT | | | | | [facility] 04/23/14 at 1115, Pre-op | | | | | | + +---------+ +----+---+---+ +---------+ +---+-------+---+ | New Bag | 04/23/20 | | 100 | | | | 14 11:04 | | mL/hr | | | | AM PDT | | | | +---------+ +---+-------+---+ +---+---+ | | | +---+---+ + +-------+ +-----+---+---+ | vancomycin 1 g in sodium | Given | 04/23/20 | 1 g | | | | chloride 0.9% 250 mL IVPB 1 g, | | 14 1:54 | | | | | Intravenous, Administer over 60 | | PM PDT | | | | | Minutes, Prior to Incision, | | | | | | | Starting [facility] 04/23/14 at 1050, For | | | | | | | 1 dose, Administer within 1 hour | | | | | | | of surgical incision. Activate | | | | | | | system and mix before use., | | | | | | | Pre-op | | | | | | + +-------+ +-----+---+---+ +---------+ +-----+-------+---+ | New Bag | 04/23/20 | 1 g | 250 | | | | 14 1:02 | | mL/hr | | | | PM PDT | | | | +---------+ +-----+-------+---+ +---+---+ | | | +---+---+ documented in this encounter
--- OUTSIDE RECORDS SUMMARY | ~2020-07-30 | XMS | Encounter Summary ---
Demographics + + + | Address | [address] | | | [place] [address] | + + + | Home Phone | | + + + | Preferred Language | Unknown | + + + | Marital Status | | + + + | Faith Affiliation | 1013 | + + + | Race | White | + + + | Ethnic Group | Not or | + + + Author + + + | Author | [facility] | | | and [place] | + + + | Organization | [facility] | | | [...] Team Providers + +------+ + | Care Weigher Alloy Name | Role | Phone | + +------+ + | Adrien Chatterjee DO | PCP | | + +------+ + Reason for Referral Service/Procedure (Routine) +--------+--------+ + + + + | Status | Reason | Specialty | Diagnoses / | Referred By | Referred To | | | | | Procedures | Contact | Contact | +--------+--------+ + + + + | Closed | | DME | Diagnoses | [place], | IN HOME | | | | | Neck pain | Kg Agustin DO | [facility] | | | | | Difficulty | [address] | [place] | | | | | sleeping | [address] | [address] | | | | | Status post | [place], [place] | ST | | | | | cervical | [address] | [place], [place] | | | | | spinal | Phone: | [address] | | | | | fusion | [phone] | Phone: | | | | | | Fax: | [phone] | | | | | | [phone] | Fax: | | | | | | | [phone] | +--------+--------+ + + + + Encounter Details +--------+ + + + + | Date | Type | Department | Care Team | Description | +--------+ + + + + | 04/28/ | Orders Only | [facility] | Kg Lemons, | Neck pain (Primary | | 2014 | | NEUROSURGERY [address] | DO [address] | Dx); Difficulty | | | | [address] | [address] [place], [place] | sleeping; Status | | | | [place] | [address] | post cervical spinal | | | | [address] | | fusion | | | | [phone] | | | +--------+ + + + [...] of this encounter Plan of Treatment + + +--------+ + + | Name | Type | Priori | Associated Diagnoses | Order Schedule | | | | ty | | | + + +--------+ + + | DME (Generic), | Outpatient | Routin | Neck pain | Ordered: 04/28/2014 | | External - AMB | Referral | e | Difficulty sleeping | | | Referral | | | Status post | | | | | | cervical spinal | | | | | | fusion | | + + +--------+ + + documented as of this encounter Visit Diagnoses + + | Diagnosis | + + | Neck pain - Primary Cervicalgia | + + | Difficulty sleeping Sleep disturbance, unspecified | + + | Status post cervical spinal fusion Arthrodesis status | + + documented in this encounter"
--- OUTSIDE RECORDS SUMMARY | ~2020-07-30 | XMS | Encounter Summary ---
Demographics + + + | Address | [address] | | | [place] [address] | + + + | Home Phone | | + + + | Preferred Language | Unknown | + + + | Marital Status | | + + + | Episcopal Affiliation | 1013 | + + + | Race | White | + + + | Ethnic Group | Not or | + + + Author + + + | Author | [facility] | | | [...] Team Providers + +------+ + | Care Instrument Calibrator Name | Role | Phone | + +------+ + | Adrien Chatterjee DO | PCP | | + +------+ + Reason for Visit +--------+--------+ + | Reason | Onset | Comments | | | Date | | +--------+--------+ + | Other | 09/17/ | prior auth | | | 2013 | | +--------+--------+ + Encounter Details +--------+ + + + + | Date | Type | Department | Care Team | Description | +--------+ + + + + | 09/17/ | Telephone | [facility] | Manuel Lubin | Guzman (prior auth) | | 2013 | | NEUROLOGY [facility] | MD Rodri Need updated | | | | | [address] [facility], | address | | | | | [facility] [address] | | | | | | [place] [address] | | | | | | [phone] | | | +--------+ + + + [...] Telephone Encounter - Trudy Cooper RN - 09/21/2014 9:11 AM PSTCalled patient to in form her that we received prior auth forms from [facility]. Once completed by Lisy Borja fax to [facility]. Will call and update patient once authorization is processed. Patient verbali zed understanding. Telephone Encounter - Shawanda Osman - 09/17/2014 2:22 PM PSTPatient called and had a qu estion about prior authorization request for her pregabalin (LYRICA) 25 mg capsule. Patient would like a call to see what the status is.Electronically signed by Shawanda Osman at 08/2014 2:24 PM PSTdocumented in this encounter Plan of Treatment Not on filedocumented as of this encounter Visit Diagnoses Not on filedocumented in this encounter"
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
--- OUTSIDE RECORDS SUMMARY | ~2020-07-30 | XMS | Encounter Summary ---
Demographics + + + | Address | [address] | | | [place] [address] | + + + | Home Phone | | + + + | Preferred Language | Unknown | + + + | Marital Status | | + + + | Sabianism Affiliation | 1013 | + + + | Race | White | + + + | Ethnic Group | Not or | + + + Author + + + | Author | [facility] | | | and [place] | + + + | Organization | [facility] | | | and [...] Team Providers + +------+ + | Care Boatwright Name | Role | Phone | + +------+ + | Adrien Chatterjee DO | PCP | | + +------+ + Reason for Visit +--------+--------+ + | Reason | Onset | Comments | | | Date | | +--------+--------+ + | Other | 03/16/ | | | | 2013 | | +--------+--------+ + Encounter Details +--------+ + + + + | Date | Type | Department | Care Team | Description | +--------+ + + + + | 03/16/ | Telephone | [facility] | Kg Lemons, | Other | | 2013 | | NEUROSURGERY [address] | DO [address] | | | | | [address] | [address] [place], [place] | | | | | [place], [place] | [id number] | | | | | [address] | | | | | | [phone] | | | +--------+ + + + [...] Encounter - Omer Jackson Cert MA - 03/16/2014 9:48 AM PDTSurgery has been sche duled. OMER JACKSON elephone Brenda Grimaldo - 03/16/2014 8:25 AM PDTAmanda called wanting to schedule her surgery ,please advise. document ed in this encounter Plan of Treatment Not on filedocumented as of this encounter Visit Diagnoses Not on filedocumented in this encounter"
--- OUTSIDE RECORDS SUMMARY | ~2020-07-30 | XMS | Encounter Summary ---
Demographics + + + | Address | [address] | | | [place] [address] | + + + | Home Phone | | + + + | Preferred Language | Unknown | + + + | Marital Status | | + + + | Methodist Affiliation | 1013 | + + + | Race | White | + + + | Ethnic Group | Not or | + + + Author + + + | Author | [facility] | | | and [place] | + + + | Organization | [facility] | | | [...] Team Providers + +------+ + | Care Turntable Operator Name | Role | Phone | [...] | | | spondylosis | | [address] | | | | | without | | [place], | | | | | myelopathy | | [place] [address] | | | | | Spinal | | Phone: | | | | | stenosis in | | [phone] | | | | | cervical | | Fax: | | | | | region | | [phone] | | | | | Brachial | [...] | | | | | | | [place] | | | | | | | [...] | | | | | | [place] | | | | | | | [...] + + + + | 04/23/ | Hospital | [facility] | Kg Lemons, | Cervical spondylosis | | 2013 | Encounter | MED CTR XRAY [address] | DO [address] | without myelopathy | | | | [place] | [address] | | | | | [place] [address] | [address] | | | | | [phone] | | | +--------+ + + + [...] | + +--------+ + + + | FL C ARM > 1 HOUR | Routin | 04/23/2014 | Cervical | Results for this | | | e | 3:34 PM | spondylosis without | procedure are in the | | | | PDT | myelopathy | results section. | + +--------+ + + + documented in this encounter Results FL C-Arm > 1 Hour (04/23/2014 3:34 PM PDT) + + | Specimen | + + | | + + + + + | Narrative | Performed At | + + + | No Radiologist interpretation, please see Chart Review. | [facility] | | | [facility] | | | [facility] | | | - IMAGING | + + + + + | Procedure Note | + + | 04/23/2014 3:35 PM PDT No Radiologist interpretation, please see Chart Review. | + + + + + + + | Performing | Address | City/State/Zipcode | Phone Number | | Organization | | | | + + + + + | [facility] | [address] | [place] | [phone] | | [facility] | | [address] | | | - IMAGING | | | | + + + + + documented in this encounter Visit Diagnoses + + | Diagnosis | + + | Cervical spondylosis without myelopathy | + + documented in this encounter"
--- OUTSIDE RECORDS SUMMARY | ~2020-07-30 | XMS | Encounter Summary ---
Demographics + + + | Address | [address] | | | [place] [address] | + + + | Home Phone | | + + + | Preferred Language | Unknown | + + + | Marital Status | | + + + | Oriental Orthodox Affiliation | 1013 | + + + | Race | White | + + + | Ethnic Group | Not or | + + + Author + + + | Author | [facility] | | | and [place] | + + + | Organization | [facility] | | [...] Team Providers + +------+ + | Care Patent Litigation Associate Name | Role | Phone | + +------+ + | Ingrid Acosta | PCP | | | HEAD OF HUMAN RESOURCES | | | + +------+ + Reason for Visit +--------+--------+ + | Reason | Onset | Comments | | | Date | | +--------+--------+ + | Other | 12/05/ | Injection Denial | | | 2013 | | +--------+--------+ + Encounter Details +--------+ + + + + | Date | Type | Department | Care Team | Description | +--------+ + + + + | 12/05/ | Telephone | [facility] | Kg Lemons, | Other (Injection | | 2013 | | NEUROSURGERY [address] | DO [address] | Denial ) | | | | [address] | [address] [place], [place] | | | | | [place], [place] | [id number] | | | | | [address] | | | | | | [phone] | | | +--------+ + + + [...] this encounter Miscellaneous Notes Telephone Encounter - Belgica Groves Cert MA - 12/09/2013 3:47 PM PSTI attempted to reach patient again. No answer. Belgica elephone Belgica Baez Cert MA - 12/05/2013 12:40 PM PSTLeft message for Gale asking that she return my call. Belgica elephone Kg Swan DO - 12/05/2013 10:46 AM PSTOK. Let's try to authorize for a C5-6 arthroplasy if she wants to proceed with that. Thanks. elephone Belgica Somers Cert MA - 12/05/2013 9:30 AM PSTAmanda called today to let our offic e know that her Insurance doesn't cover injections. She was wanting to know what she should do next? Please advise, Dr. Lemons. Belgica documented in this encounter Plan of Treatment Not on filedocumented as of this encounter Visit Diagnoses Not on filedocumented in this encounter"
--- OUTSIDE RECORDS SUMMARY | ~2020-07-30 | XMS | Encounter Summary ---
Demographics + + + | Address | [address] | | | [place] [address] | + + + | Home Phone | | + + + | Preferred Language | Unknown | + + + | Marital Status | | + + + | Sikh Affiliation | 1013 | + + + | Race | White | + + + | Ethnic Group | Not or | + + + Author + + + | Author | [facility] | | | and [place] | + + + | Organization | [facility] | | [...] Team Providers + +------+ + | Care Scissors Sharpener Name | Role | Phone | + +------+ + | Ingrid Acosta | PCP | | | RUBBER MILL TENDER | | | + +------+ + Reason for Referral Evaluate & Treat (Routine) +--------+ + + + + + | Status | Reason | Specialty | Diagnoses / | Referred By | Referred To | | | | | Procedures | Contact | Contact | +--------+ + + + + + | Closed | Specialty | Physical | Diagnoses | Cristo, | [facility] | | | Services | Therapy / | Spinal | Kg Agustin DO | Pt Op [address] | | | Required | Rehabilitatio | stenosis in | [address] | [place] | | | | n | cervical | [address] | [place], | | | | | region | [place], [place] | [place] [address] | | | | | | [address] | Phone: | | | | | | Phone: | [phone] | | | | | | [phone] | Fax: | | | | | | Fax: | [phone] | | | | | | [phone] | | +--------+ + + + + + Encounter Details +--------+ + + + + | Date | Type | Department | Care Team | Description | +--------+ + + + + | 11/25/ | Orders Only | [facility] | Kg Lemons, | Spinal stenosis in | | 2013 | | NEUROSURGERY [address] | DO [address] | cervical region | | | | [address] | [address] [place], [place] | (Primary Dx) | | | | [place], [place] | [address] | | | | | [address] | | | | | | [phone] | | | +--------+ + + + [...] Ambulatory referral | Outpatient | Routin | Spinal stenosis in | 1 Occurrences | | to Physical Therapy | Referral | e | cervical region | starting 11/25/2013 | | | | | | until 11/25/2014 | + + +--------+ + + documented as of this encounter Visit Diagnoses + + | Diagnosis | + + | Spinal stenosis in cervical region - Primary | + + documented in this encounter"
--- OUTSIDE RECORDS SUMMARY | ~2020-07-30 | XMS | Encounter Summary ---
Demographics + + + | Address | [address] | | | [place] [address] | + + + | Home Phone | | + + + | Preferred Language | Unknown | + + + | Marital Status | | + + + | Church Affiliation | 1013 | + + + | Race | White | + + + | Ethnic Group | Not or | + + + Author + + + | Author | [facility] | | [...] Team Providers + +------+ + | Care Beet Flumer Name | Role | Phone | + +------+ + | Adrien Chatterjee DO | PCP | | + +------+ + Encounter Details +--------+ + + + + | Date | Type | Department | Care Team | Description | +--------+ + + + + | 04/23/ | Hospital | [facility] | Unique Watt | | | 2014 | Encounter | MED CTR THERAPY OT | A, OT | | | | | ACUTE [address] | | | | | | [place], [place] | | | | | | [address] | | | | | | [phone] | | | +--------+ + + + [...]
--- OUTSIDE RECORDS SUMMARY | ~2020-07-30 | XMS | Encounter Summary ---
Demographics + + + | Address | [address] | | | [place] [address] | + + + | Home Phone | | + + + | Preferred Language | Unknown | + + + | Marital Status | | + + + | Pentecostal Affiliation | 1013 | + + + | Race | White | + + + | Ethnic Group | Not or | + + + Author + + + | Author | [facility] | | | and [place] | [...] Team Providers + +------+ + | Care Third Hand Name | Role | Phone | + +------+ + | Adrien Chatterjee DO | PCP | | + +------+ + Encounter Details +--------+ + + + + | Date | Type | Department | Care Team | Description | +--------+ + + + + | 06/29/ | Documentati | [facility] | Dayanara Harper | | | 2013 | on | MED CTR THERAPY PT | K, PT [address] | | | | | OP [address] | [place] [place], [place] | | | | | [place], [place] | [address] | | | | | [address] | | | | | | [phone] | | | +--------+ + + + [...] + documented as of this encounter Progress Dayanara Morales, PT - 06/29/2014 4:29 PM [facility] [address] [place] [address] Cancellation/No Show Date: 06/29/2014 Patient Information Patient Name: Gale Godinez Date of : 1980 Age: 33 y.o. Reason for missed visit: Gale did now [facility] Phone call placed: yes A call was placed and the phone stated that she is not taking calls at this time. Plan: Cont with POC Electronically signed by: Dayanara Harper, PT, 06/29/2014 16:29 Patient Name: Gale Godinez/: 1980/ documented in this encounter Plan of Treatment Not on filedocumented as of this encounter Visit Diagnoses + + | Diagnosis | + + | Posture abnormality - Primary Abnormal posture | + + | Neck pain on left side Cervicalgia | + + | Neuropathic pain, arm Brachial neuritis or radiculitis nos | + + | Fusion of spine of cervical region Congenital fusion of spine (vertebra) | + + documented in this encounter"
--- OUTSIDE RECORDS SUMMARY | ~2020-07-30 | XMS | Encounter Summary ---
Demographics + + + | Address | [address] | | | [place] [address] | + + + | Home Phone | | + + + | Preferred Language | Unknown | + + + | Marital Status | | + + + | Worship Affiliation | 1013 | + + + | Race | White | + + + | Ethnic Group | Not or | + + + Author + + + | Author | [facility] | | | and [place] | + + + | Organization | [facility] | | [...] Team Providers + +------+ + | Care Carpenter Helper Maintenance Name | Role | Phone | + +------+ + | Adrien Chatterjee DO | PCP | | + +------+ + Reason for Visit +--------+--------+ + | Reason | Onset | Comments | | | Date | | +--------+--------+ + | Other | 09/24/ | prior auth | | | 2013 | | +--------+--------+ + Encounter Details +--------+ + + + + | Date | Type | Department | Care Team | Description | +--------+ + + + + | 09/24/ | Telephone | [facility] | Manuel Lubin | Guzman (prior auth) | | 2013 | | NEUROLOGY HANSEL | MD Rodri Need updated | | | | | [address] [facility], | address | | | | | [facility] [address] | | | | | | [place] [address] | | | | | | [phone] | | | +--------+ + + + [...] this encounter Miscellaneous Notes Telephone Encounter - Donna Billy RN - 10/12/2014 9:46 AM PSTAppeal for Alpesh 25 m g approved by [facility] effective 10/09/14 to 10/09/15. Gale called and informed of approval and that the [facility] in [place] would be notified. [facility] notified. 10:2 1 AM PSTTelephone Encounter - Donna Billy RN - 09/29/2014 2:44 PM PSTMedication kaylie ed, appeal form given to Dr. Lubin.Electronically signed by Donna Billy RN at 09/08 2:44 PM PSTTelephone Encounter - Donna Billy RN - 09/24/2014 3:35 PM PSTLyri ca prior auth [facility] Donna Billy RN at 09/24/2014 3:36 PM PSTdocumented in this encounter Plan of Treatment Not on filedocumented as of this encounter Visit Diagnoses Not on filedocumented in this encounter"
--- OUTSIDE RECORDS SUMMARY | ~2020-07-30 | XMS | Encounter Summary ---
Demographics + + + | Address | [address] | | | [place] [address] | + + + | Home Phone | | + + + | Preferred Language | Unknown | + + + | Marital Status | | + + + | Quaker Affiliation | 1013 | + + + | Race | White | + + + | Ethnic Group | Not or | + + + Author + + + | Author | [facility] | | | and [place] | + + + | Organization | [facility] | | | [...] Team Providers + +------+ + | Care Laundrette Owner Name | Role | Phone | + +------+ + | Adrien Chatterjee DO | PCP | | + +------+ + Encounter Details +--------+ + + + + | Date | Type | Department | Care Team | Description | +--------+ + + + + | 04/16/ | Preadmit | [facility] | Kg Lemons, | Anemia; Migraines; | | 2014 | Visit | MED CTR PREADMIT | DO [address] | History of tobacco | | | | CLINIC [address] | [address] [place], [place] | use | | | | [place] | [address] | | | | | [address] | | | | | | [phone] | | | +--------+ + + + [...] + +--------+ + + + | XR CHEST PA AND | Routin | 04/16/2014 | Anemia Migraines | Results for this | | LATERAL | e | 11:05 AM | History of tobacco | procedure are in the | | | | PDT | use | results section. | + +--------+ + + + | PTT | Routin | 04/16/2014 | Anemia Migraines | Results for this | | | e | 10:25 AM | History of tobacco | procedure are in the | | | | PDT | use | results section. | + +--------+ + + + | PROTIME INR | Routin | 04/16/2014 | Anemia Migraines | Results for this | | | e | 10:25 AM | History of tobacco | procedure are in the | | | | PDT | use | results section. | + +--------+ + + + | CBC WITH | Routin | 04/16/2014 | Anemia Migraines | Results for this | | DIFFERENTIAL | e | 10:25 AM | History of tobacco | procedure are in the | | | | PDT | use | results section. | + +--------+ + + + | BASIC METABOLIC | Routin | 04/16/2014 | Anemia Migraines | Results for this | | PANEL | e | 10:25 AM | History of tobacco | procedure are in the | | | | PDT | use | results section. | + +--------+ + + + documented in this encounter Results XR Chest PA and [...] | Procedure Note | + + | Sg Cain Results In - 04/16/2014 11:37 AM PDT [...] + | MISCELLANEOUS LAB | | | [phone] | + +---------+ + + | MISCELANIOUS LAB | | | [phone] | + +---------+ + + Basic Metabolic [...] 9 | 7 - 18 mg/dL | [facility] | | | | | | [facility] | | | | | | [facility] | | | | | | C[facility] - | | | | | | LABORATORY | | + + + + + + | Creatinine | 0.65 | 0.60 - 1.30 | [facility] | | | | | mg/dL | [facility] | | | | | | MEDICAL | | | | | | CENTER - | | | | | | LABORATORY | | + + + + + + | eGFR, | >60Comment: GLOMERULAR | >=60 | [facility] | | | non- | FILTRATION | mL/min/1.73m2 | [facility] | | | Pakistani | RATE,ESTIMATED | | MEDICAL | | | | mL/min/1.58p3Todz than | | CENTER - | | [...] | + + + + + | [facility] | [address] | [place] | [phone] | | [facility] | | [address] | | | - LABORATORY | | | | + + + + + | [facility] | [address] | [place], [place] | | | [facility] | | [address] | | | - LABORATORY | | | | + + + + + Lexaime INR (04/16/2014 10:25 AM PDT) + +-------+ + + + | Component | Value | Ref Range | Performed | Pathologist | | | | | At | Signature | + +-------+ + + + | Prothrombin | 12.1 | 11.3 - 13.9 | [facility] | | | Time | | seconds | [facility] | | | | [...] + | [facility] | [address] | [place] | [phone] | | [facility] | | [address] | | | - LABORATORY | | | | + + + + + | [facility] | [address] | [place], [place] | | | [facility] | | [id number] | | | - LABORATORY | [...] + | [facility] | [address] | [place], [place] | [phone] | | [facility] | | [address] | | | - LABORATORY | | | | + + + + + | [facility] | [address] | [place], [place] | | | [facility] | | [address], [facility] | | | - LABORATORY | | [...] (H) | 4.0 - 11.0 K/uL | [facility] | | | Cells | | | [facility] | | [...] | | | | | g/dL | . [facility] | | | | [...] | Lymphocytes | | K/uL | [facility] | | | | | | MEDICAL | | | | | | CENTER - | | | | | | LABORATORY | | + + + + + + | Absolute | 0.80 | 0.00 - 1.00 | [facility] | | | Monocytes | | K/uL | [facility] | | | | | | MEDICAL | | | | | | CENTER - | | | | | | LABORATORY | | + + + + + + | Absolute | 0.30 | 0.00 - 0.40 | [facility] | | | Eosinophils | | K/uL | [facility] | | | | | | MEDICAL | | | | | | CENTER - | | | | | | LABORATORY | | + + + + + + | Absolute | 0.20 (H) | 0.00 - 0.10 | [facility] | | | Basophils | | K/uL | [facility] | | | | | | MEDICAL [...] + + | [facility] | [address] | [place] | [phone] | | [facility] | | [address] | | | - LABORATORY | | | | + + + + + | [facility] | [address] | [place], [place] | | | [facility] | | [address] | | | - LABORATORY | | | | + + + + + documented in this encounter Visit Diagnoses + + | Diagnosis | + + | Anemia Anemia, unspecified | + + | Migraines Migraine, unspecified, without mention of intractable migraine without | | mention of status migrainosus | + + | History of tobacco use Personal history of tobacco use, presenting hazards to health | + + documented in this encounter"
--- OUTSIDE RECORDS SUMMARY | ~2020-07-30 | XMS | Encounter Summary ---
Demographics + + + | Address | [address] | | | [place] [address] | + + + | Home Phone | | + + + | Preferred Language | Unknown | + + + | Marital Status | | + + + | Rastafari Affiliation | 1013 | + + + | Race | White | + + + | Ethnic Group | Not or | + + + Author + + + | Author | [facility] | | | and [place] | + + + | Organization | [facility] | | [...] Team Providers + +------+ + | Care Alfalfa Dehydrator Operator Name | Role | Phone | + +------+ + | Adrien Chatterjee DO | PCP | | + +------+ + Reason for Visit + + + | Reason | Comments | + + + | Extremity Weakness | | + + + | Back Pain | | + + + Encounter Details +--------+ + + + + | Date | Type | Department | Care Team | Description | +--------+ + + + + | 03/30/ | Emergency | [facility] | Rena Richter | Weakness (Primary | | 2013 | | [facility] | DO Monroe Sloan | Dx) | | | | CENTER [address] | [place], [place] | | | | | [place], [place] | [id number] | | | | | [address] | | | | | | [phone] | | | +--------+ + + + [...] + + + | Blood Pressure | 138/63 | 03/30/2014 2:22 PM | | | | | PDT | | + + + + + | Pulse | 71 | 03/30/2014 2:22 PM | | | | | PDT | | + + + + + | Temperature | 37.1 C (98.8 F) | 03/30/2014 2:22 PM | | | | | PDT | | + + + + + | Respiratory Rate | 16 | 03/30/2014 2:22 PM | | | | | PDT | | + + + + + | Oxygen Saturation | 100% | 03/30/2014 2:22 PM | | | | | PDT | | + + + + + | Inhaled Oxygen | - | - | | | Concentration | | | | + + + + + | Weight | 75.3 kg (166 lb) | 03/30/2014 2:22 PM | | | | | PDT | | + + + + + | Height | 157.5 cm (5' 2") | 03/30/2014 2:22 PM | | | | | PDT | | + + + + + | Body Mass Index | 30.36 | 03/30/2014 2:22 PM | | | | | PDT | | + + + + + documented in this encounter Discharge Instructions Instructions Rena Richter MD - 03/30/2014Your MRI's show no new findings Dr Cummings office will call to schedule you for neurology evaluation Home and rest documented in this encounter Medications at Time of Discharge + + + +---------+ + + | Medication | Sig | Dispensed | Refills | Start | End Date | | | | | | Date | | + + + +---------+ + + | BACLOFEN PO | Take by mouth. | | 0 | | | | | | | | | 4 | + + + +---------+ + + [...] + + + +---------+ + + | GABAPENTIN PO | Take by mouth. | | 0 | | | | | | | | | 4 | + + + +---------+ + + [...] + + +---------+ + + | ibuprofen (ADVIL, | Take 800 mg by mouth | | 0 | | | | MOTRIN) 200 mg | as needed. | | | | 4 | | tablet | | | | | | + + + +---------+ + + | Ondansetron HCl | Take by mouth. | | 0 | | | | (ZOFRAN PO) | | | | | 4 | + + + +---------+ + + | | Take 1 tablet by | | 0 | | | | Oxycodone-Acetaminop | mouth EVERY 4 TO 6 | | | | 4 | | hen (PERCOCET PO) | HOURS NEEDED. | | | | | + + + +---------+ + + | UNABLE TO FIND | Med Name: Ingrid'cornelio | | 0 | | | | | Powder. 1-2 powders | | | | 4 | | | when I get a | | | | | | | headache | | | | | + + + +---------+ + + documented as of this encounter ED Notes Rena Richter MD - 03/30/2014 8:19 PM PDTFormatting of this note might be diffe rent from the original. [facility] Gale Godinez Emergency Department Encounter Note [address] [place] [id number] PCP:Adrien Chatterjee [phone] CHIEF COMPLAINT Chief Complaint Patient presents with Extremity Weakness Back Pain HPI Gale Godinez is a 33 y.o. female who presents with chief complaint of left upper ext remity and left lower extremity weakness. The patient states that its onset has been going on for about 2 days now. She says that she was having some left leg and left arm pain that suddenly developed into weakness. The patient was seen at [facility] last night and the physician there thought that the patient showed signs of weakness. I called over here and s poke with Dr. beltran who wanted her transported here for MRI to compare with previous MRI. The patient was unable to find right ear last night and so she comes here today. She states th at she is having extreme weakness in her left upper and lower extremity in all ranges of mot ion. She does not complaining of subjective numbness. She states that she has an intake wi th Dr. Lemons in April. The patient has not had any bowel or bladder incontinence and does n ot complaining of any saddle anesthesia PAST MEDICAL HISTORY Past Medical History Diagnosis Date Anemia Migraines Back pain SURGICAL HISTORY Past Surgical History Procedure Date Tubal ligation 2001 Cholecystectomy 1999 CURRENT MEDICATIONS Previous Medications BACLOFEN PO Take by mouth. DULOXETINE (CYMBALTA) 20 MG CAPSULE Take 40 mg by mouth Daily. FERROUS SULFATE (IRON) 325 (65 FE) MG TABS Take 325 mg by mouth Daily. GABAPENTIN PO Take by mouth. IBUPROFEN (ADVIL, MOTRIN) 200 MG TABLET Take 800 mg by mouth as needed. ONDANSETRON HCL (ZOFRAN PO) Take by mouth. OXYCODONE-ACETAMINOPHEN (PERCOCET PO) Take by mouth. UNABLE TO FIND Med Name: Goody's Powder. 1-2 powders when I get a headache ALLERGIES Allergies Allergen Reactions Amoxicillin Swelling Swollen jaw Latex Itching and Rash FAMILY HISTORY Family History Problem Relation Age of Onset Migraines Daughter Migraines Sister Cancer Other grandfather Diabetes Other grandparents Hypertension Other grandfather Arthritis Other grandmother SOCIAL HISTORY History Social History Marital Status: Unknown Spouse Name: N/A Number of Children: N/A Years of Education: N/A Social History Main Topics Smoking status: Current Every Day Smoker -- 1.2 packs/day for 19 years Types: Cigarettes Smokeless tobacco: None Alcohol Use: Yes Comment: rarely Drug Use: No Sexually Active: None Other Topics Concern None Social History Narrative None REVIEW OF SYSTEMS Review of systems is negative except as mentioned in the HPI PHYSICAL EXAM VITAL SIGNS: (first vital signs):Temp: 37.1 C (98.8 F) Pulse: 71 Resp: 16 SpO2: 100 % BP: 138/63 mmHg Physical Exam Nursing note and vitals reviewed. Constitutional: She is oriented to person, place, and time. She appears well-developed and well-nourished. Cardiovascular: Normal rate, regular rhythm and normal heart sounds. Pulmonary/Chest: Effort normal and breath sounds normal. Musculoskeletal: Normal range of motion. She exhibits no edema and no tenderness. Neurological: She is alert and oriented to person, place, and time. She has normal reflexes . She displays normal reflexes. No cranial nerve deficit. She exhibits normal muscle tone. C oordination normal. Pt has no obvious strength loss but does give some global decreased effort with left s ided strength testing in both the upper and lower extremities. Sensation is intact througho ut. The patient had negative straight leg raise test. The patient is neurovascularly intac t. There is no signs of atrophy and there is good muscle tone. Pt has no saddle anesthesia dn has no loss of bowel or bladder sontrol Skin: Skin is warm and dry. Psychiatric: She has a normal mood and affect. No results found for this or any previous visit. RADIOLOGY MRI of Cspine and Lspine were unchanged from previous ED COURSE & MEDICAL DECISION MAKING Pertinent Labs & Imaging studies reviewed. (See chart for details) Pt was seen and examined. I was here last night when call was made for pt from [facility] descibing some left leg weakness and increased left arm and leg pain. Pt was advised by Rodri Beltran to come to our ER for MRI to compare from previous to see if things werer geetting wor se. Pt was unable to get a ride then and came here today for MRI. Pt was noted to ambulate into ER without difficulty and described weakness and pain from head to toe on her left side . I went ahead and got MRI that was supposed to be done yesterday and they were unchanged a ccording to radiology report. I called and spoke to Dr Beltran who felt that the pts symptoms w ere likely not correctable with surgery and that he would have his office schedule pt for ne urology consult to evaluate her. Pt has follow up with Dr Lemons already scheduled for surg karl of theneck. At this point there is no neurosurgical emergency and no signs of cauda equ nicole and pt advised to have neuro followup that Dr Beltran will arange. Pt comfortable with plan Last Set of Vital Signs: Temp: 37.1 C (98.8 F) Pulse: 71 Resp: 16 SpO2: 100 % BP: 138 /63 mmHg FINAL IMPRESSION 1. Weakness Follow-up Information Follow up with Kg Lemons DO. Contact information: [address] [place] [id number] Rena Richter MD 03/31/14 0851 Ramsey Chung, RN - 03/30/2014 7:26 PM PDTDc with instructions documented in this encounter Miscellaneous Notes Plan of Care - [facility] SCAN WAIA - 04/01/2014 12:00 AM PDT D Triage Notes - Gina Frank RN - 03/30/2014 2:19 PM PDTC/O exacerbation of chronic back pain for the past 2-3 days. Pt states that she has had i ncreasing left sided weakness and pain. Pt was seen at [facility] yesterday and told to [facility] here yesterday for "emergency MRI" states she could not find transportation so she came to day instead. document ed in this encounter Plan of Treatment Not on filedocumented as of this encounter Procedures + +--------+ + + + | Procedure Name | Priori | Date/Time | Associated Diagnosis | Comments | | | ty | | | | + +--------+ + + + | MRI CERVICAL SPINE | STAT | 03/30/2014 | | Results for this | | WO CONTRAST | | 5:28 PM | | procedure are in the | | | | PDT | | results section. | + +--------+ + + + | MRI LUMBAR SPINE WO | STAT | 03/30/2014 | | Results for this | | CONTRAST | | 5:27 PM | | procedure are in the | | | | PDT | | results section. | + +--------+ + + + documented in this encounter Results MRI Cervical Spine wo Contrast (03/30/2014 5:28 PM PDT) + + | Specimen | + + | | + + + + + | Narrative | Performed At | + + + | MRI CERVICAL SPINE WO CONTRAST 03/30/2014 5:17 PM HISTORY: | MISCELANIOUS | | INCREASED LEFT ARM WEAKNESS. COMPARISON: MRI of the cervical spine | LAB | | dated 09/03/2013. PROTOCOL: Sagittal T2, sagittal T1, axial T2, | | | axial GRE, sagittal STIR, coronal T1. FINDINGS: Visualized brain | | | and skull base demonstrate no acute findings. Prevertebral soft | | | tissues are normal. Vertebral body height are preserved. There | | | is mild disc desiccation throughout the cervical spine except at | | | C7-T1. Mild disc height loss is at C5-6. Imaged cervical spinal | | | cord demonstrates normal signal with no evidence for myelomalacia or | | | mass lesions. Soft tissue structures of the neck are unremarkable. | | | The atlantoaxial joint is normal. C2-3: No central canal or | | | neural foramina canal stenosis. C3-4: No central canal or neural | | | foramina canal stenosis. C4-5: No central canal or neural foramina | | | canal stenosis. C5-6: Again visualized is a 3 mm left paracentral | | | disc protrusion with tearing of the annulus. This contacts and | | | flattens the left ventral surface of the cord, which has slightly | | | progressed compared to the prior study. There is no significant | | | neural foraminal canal stenosis. C6-7: A small 2 mm central disc | | | protrusion is observed that leads to minimal central canal stenosis. | | | This has mildly increased in size. No neural foraminal canal stenosis | | | is seen. C7-T1: No central canal or neural foramina canal | | | stenosis. IMPRESSION - C5-6: Again visualized is a 3 mm left | | | paracentral disc protrusion with tearing of the annulus. This | | | contacts and flattens the left ventral surface of the cord, which has | | | slightly progressed compared to the prior study. There is no | | | significant neural foraminal canal stenosis. C6-7: A small 2 mm | | | central disc protrusion is observed that leads to minimal central | | | canal stenosis. This has mildly increased in size. No neural foraminal | | | canal stenosis is seen. A preliminary report was sent by [facility] | | | Imaging at 6:11 PM on 03/30/2014 with no significant discrepancy. | | | Dictated and Signed by: Yamil Yu MD Electronically signed: | | | 03/31/2014 9:09 AM | | + + + + + | Procedure Note | + + | Ant, Rad Results In - 03/31/2014 9:12 AM PDT MRI CERVICAL SPINE WO CONTRAST | | 03/30/2014 5:17 PM HISTORY: INCREASED LEFT ARM WEAKNESS.COMPARISON: MRI of the cervical | | spine dated 09/03/2013.PROTOCOL: Sagittal T2, sagittal T1, axial T2, axial GRE, sagittal | | STIR, coronalT1.FINDINGS:Visualized brain and skull base demonstrate no acute findings. | | Prevertebral softtissues are normal.Vertebral body height are preserved.There is mild | | disc desiccation throughout the cervical spine except at C7-T1.Mild disc height loss is | | at C5-6.Imaged cervical spinal cord demonstrates normal signal with no evidence | | formyelomalacia or mass lesions.Soft tissue structures of the neck are unremarkable.The | | atlantoaxial joint is normal.C2-3: No central canal or neural foramina canal | | stenosis.C3-4: No central canal or neural foramina canal stenosis.C4-5: No central canal | | or neural foramina canal stenosis.C5-6: Again visualized is a 3 mm left paracentral | | disc protrusion with tearingof the annulus. This contacts and flattens the left ventral | | surface of the cord,which has slightly progressed compared to the prior study. There is | | nosignificant neural foraminal canal stenosis.C6-7: A small 2 mm central disc protrusion | | is observed that leads to minimalcentral canal stenosis. This has mildly increased in | | size. No neural foraminalcanal stenosis is seen.C7-T1: No central canal or neural | | foramina canal stenosis.IMPRESSION -C5-6: Again visualized is a 3 mm left paracentral | | disc protrusion with tearingof the annulus. This contacts and flattens the left ventral | | surface of the cord,which has slightly progressed compared to the prior study. There is | | nosignificant neural foraminal canal stenosis.C6-7: A small 2 mm central disc protrusion | | is observed that leads to minimalcentral canal stenosis. This has mildly increased in | | size. No neural foraminalcanal stenosis is seen.A preliminary report was sent by [facility] | | Imaging at 6:11 PM on 03/30/2014 with nosignificant discrepancy.Dictated and Signed by: | | Yamil Yu MD Electronically signed: 03/31/2014 9:09 AM | | | |C2-3: No central canal or neural foramina canal stenosis. | | | |C3-4: No central canal or neural foramina canal stenosis. | | | |C4-5: No central canal or neural foramina canal stenosis. | | | |C5-6: Again visualized is a 3 mm left paracentral disc protrusion with tearing | |of the annulus. This contacts and flattens the left ventral surface of the cord, | |which has slightly progressed compared to the prior study. There is no | |significant neural foraminal canal stenosis. | | | |C6-7: A small 2 mm central disc protrusion is observed that leads to minimal | |central canal stenosis. This has mildly increased in size. No neural foraminal | |canal stenosis is seen. | | | |C7-T1: No central canal or neural foramina canal stenosis. | | | |IMPRESSION - | |C5-6: Again visualized is a 3 mm left paracentral disc protrusion with tearing | |of the annulus. This contacts and flattens the left ventral surface of the cord, | |which has slightly progressed compared to the prior study. There is no | |significant neural foraminal canal stenosis. | | | |C6-7: A small 2 mm central disc protrusion is observed that leads to minimal | |central canal stenosis. This has mildly increased in size. No neural foraminal | |canal stenosis is seen. | | | |A preliminary report was sent by [facility] at 6:11 PM on 03/30/2014 with no | |significant discrepancy. | | | |Dictated and Signed by: Yamil Yu MD | | Electronically signed: 03/31/2014 9:09 AM | + + + +---------+ + + | Performing | Address | City/State/Zipcode | Phone Number | | Organization | | | | + +---------+ + + | [facility] | | | [phone] | + +---------+ + + | [facility] | | | [phone] | + +---------+ + + MRI Lumbar Spine wo Contrast (03/30/2014 5:27 PM PDT) + + | Specimen | + + | | + + + + + | Narrative | Performed At | + + + | MRI LUMBAR SPINE WO CONTRAST 03/30/2014 5:18 PM HISTORY: | MISCELANIOUS | | INCREASED LEFT LEG WEAKNESS. COMPARISON: MRI of the lumbar spine | LAB | | dated 11/28/2013. PROTOCOL: Sagittal T2, sagittal T1, axial T2, | | | axial T1, sagittal STIR, coronal T2. FINDINGS: There is slight | | | wedging of T12 and L1 that have remained stable and are likely to be | | | physiologic. Mild spondylosis is observed. Disc desiccation are | | | present at T10-11, T11-T12, and L5-S1. Imaged spinal cord and | | | cauda equina demonstrate normal signal with no evidence for | | | myelomalacia or mass lesions. The conus medullaris terminates at level | | | L1-2, which is normal. Imaged abdomen and pelvis demonstrate no | | | acute findings. Small posterior disc bulges are present at T11-12 | | | and T12-L1 with mild central canal stenosis at T11-12. L1-2: No | | | central canal or neural foramina canal stenosis. L2-3: No central | | | canal or neural foramina canal stenosis. L3-4: No central canal or | | | neural foramina canal stenosis. L4-5: A 3 mm posterior disc | | | bulge is present that leads to minimal central canal stenosis. No | | | neural foraminal canal stenosis is seen. L5-S1: A 3 mm posterior | | | disc bulge is seen that leads to minimal central canal stenosis. No | | | neural foraminal canal stenosis is seen. Degenerative changes | | | have remained relatively stable. IMPRESSION - Small posterior | | | disc bulges at L4-5 and L5-S1 leading to minimal central canal | | | stenoses. Small posterior disc bulges at T11-12 and T12-L1 leading | | | to mild central canal stenosis at T11-12. A preliminary report | | | was sent by [facility] at 6:24 PM on 03/30/2014 with no | | | significant discrepancy. Dictated and Signed by: Yamil Yu MD | | | Electronically signed: 03/31/2014 8:36 AM | | + + + + + | Procedure Note | + + | Ant, Rad Results In - 03/31/2014 8:39 AM PDT MRI LUMBAR SPINE WO CONTRAST 03/30/2014 | | 5:18 PM HISTORY: INCREASED LEFT LEG WEAKNESS.COMPARISON: MRI of the lumbar spine dated | | 11/28/2013.PROTOCOL: Sagittal T2, sagittal T1, axial T2, axial T1, sagittal STIR, | | coronalT2.FINDINGS:There is slight wedging of T12 and L1 that have remained stable and | | are likelyto be physiologic. Mild spondylosis is observed. Disc desiccation are present | | at T10-11, T11-T12, and L5-S1. Imaged spinal cord and cauda equina demonstrate normal | | signal with no evidencefor myelomalacia or mass lesions. The conus medullaris terminates | | at level L1-2,which is normal.Imaged abdomen and pelvis demonstrate no acute | | findings.Small posterior disc bulges are present at T11-12 and T12-L1 with mild | | centralcanal stenosis at T11-12.L1-2: No central canal or neural foramina canal | | stenosis.L2-3: No central canal or neural foramina canal stenosis.L3-4: No central canal | | or neural foramina canal stenosis. L4-5: A 3 mm posterior disc bulge is present that | | leads to minimal central canalstenosis. No neural foraminal canal stenosis is seen. | | L5-S1: A 3 mm posterior disc bulge is seen that leads to minimal central canalstenosis. | | No neural foraminal canal stenosis is seen. Degenerative changes have remained | | relatively stable.IMPRESSION -Small posterior disc bulges at L4-5 and L5-S1 leading to | | minimal central canalstenoses.Small posterior disc bulges at T11-12 and T12-L1 leading | | to mild central canalstenosis at T11-12.A preliminary report was sent by [facility] | | at 6:24 PM on 03/30/2014 with nosignificant discrepancy.Dictated and Signed by: Yamil | | MD Gigi Electronically signed: 03/31/2014 8:36 AM | | | |Small posterior disc bulges are present at T11-12 and T12-L1 with mild central | |canal stenosis at T11-12. | | | |L1-2: No central canal or neural foramina canal stenosis. | | | |L2-3: No central canal or neural foramina canal stenosis. | | | |L3-4: No central canal or neural foramina canal stenosis. | | | |L4-5: A 3 mm posterior disc bulge is present that leads to minimal central canal | |stenosis. No neural foraminal canal stenosis is seen. | | | |L5-S1: A 3 mm posterior disc bulge is seen that leads to minimal central canal | |stenosis. No neural foraminal canal stenosis is seen. | | | |Degenerative changes have remained relatively stable. | | | |IMPRESSION - | |Small posterior disc bulges at L4-5 and L5-S1 leading to minimal central canal | |stenoses. | | | |Small posterior disc bulges at T11-12 and T12-L1 leading to mild central canal | |stenosis at T11-12. | | | |A preliminary report was sent by [facility] at 6:24 PM on 03/30/2014 with no | |significant discrepancy. | | | |Dictated and Signed by: Yamil Yu MD | | Electronically signed: 03/31/2014 8:36 AM | + + + +---------+ + + | Performing | Address | City/State/Zipcode | Phone Number | | Organization | | | | + +---------+ + + | [facility] | | | [phone] | + +---------+ + + | [facility] | | | [phone] | + +---------+ + + documented in this encounter Visit Diagnoses + + | Diagnosis | + + | Weakness - Primary Other malaise and fatigue | + + documented in this encounter
--- OUTSIDE RECORDS SUMMARY | ~2020-07-30 | XMS | Encounter Summary ---
Demographics + + + | Address | [address] | | | [place] [address] | + + + | Home Phone | | + + + | Preferred Language | Unknown | + + + | Marital Status | | + + + | Orthodoxy Affiliation | 1013 | + + + | Race | White | + + + | Ethnic Group | Not or | + + + Author + + + | Author | [facility] | | | and [place] | + + + | Organization | [facility] | | | and [...] Team Providers + +------+ + | Care Senior Qualitative Researcher Name | Role | Phone | + [...] | | | spondylosis | | [address] | | | | | without | | [place], | | | | | myelopathy | | [place] [address] | | | | | Spinal | | Phone: | | | | | stenosis in | | [phone] | | | | | cervical | | Fax: | | | | | region | | [phone] | | | | | Brachial | [...] | | | | | | | [place] | | | | | | | [...] | | | | | | [place] | | | | | | | [...] + + | 04/23/ | Hospital | [facility] | Kg Lemons, | | | 2013 | Encounter | MED CTR SURGICAL | DO [address] | | | | | [address] | [address] | | | | | [place] [address] | [address] | | | | | [phone] | | | +--------+ + + + [...] as of this encounter Progress Notes Unique Watt OT - 04/23/2014 12:[address] [facility] OR INTRA OP [address] [address] One Time Assessment Date: 03/17/2014 Patient Information [...] Watt OT, 04/23/2014 12:43 Patient Name: Gale Katz Gretchen/: 1980/ documented in this encounter H&P Notes Kg Lemons DO - 04/23/2014 12:46 PM PDT SURGICAL INTERIM HISTORY AND PHYSICAL UPDATE Pt. Name/Age/: Gale Katz Yusrakendra 33 y.o. 1980 Date of admission: 04/23/2014 The current H&P was reviewed. The patient was reexamined. Re-evaluation of the patient co nfirms the necessity for the scheduled procedure. No change has occurred in the patient s condition since the H&P was completed less than 30 days ago. Electronically signed by: Kg Lemons DO, 04/23/2014 12:46 [facility] signed by Kg Lemons DO at 04/07 12:46 PM Kg Andersen DO - 04/23/2014 12:45 PM Francia Lemons D.O. [address], [address] [place], [place] [id number] FAX: NEUROSURGERY HISTORY AND PHYSICAL EXAMINATION CHIEF COMPLAINT: Chief Complaint Patient presents with Follow-up Pre op HISTORY OF PRESENT ILLNESS: The patient is a 33 y.o. female here for her preoperative visi t for her scheduled cervical fusion. Her symptoms remain unchanged since her last visit wit [facility]. She continues to have the complaint [...] report loss of strength, especially in her sneller hand, which causes her to drop th ings [...] has no apparent deficits with short or fdc memory. CRANIAL NERVES: II: Acuity is intact. [...] Intrinsics 4+ 4 Ulnar Intrinsics 4+ 4 Safemaker Strength 4+ 4 Hip Flexion 5 5 [...] documented in this en counter Procedure Notes [facility] - 05/05/2014 12:00 AM PDT 14 10:48 [facility]/05/2014 12:00 AM [facility] - 05/01/2014 12:00 AM PDT documented in this encounter Miscellaneous Notes Plan of Care - [facility] - 05/05/2014 12:00 AM PDT iscellaneous - [facility] - 05/05/2014 12:00 AM PDTElec tronically signed by Mauricio Kumar at 05/05/2014 10:48 AM PDTMiscellaneous - [facility] - 05/05/2014 12:00 AM PDT l [...] sore but otherwise denies radicular sx. B sneller hand symmetrical and WFL. Pt able to move [...] PM PDTDATE: 04/23/2014 SURGEON: Kg Lemons DO PLACEMENT DIRECTOR: None PREOPERATIVE DIAGNOSES: 1. Cervical spondylosis. 2. [...] until th e uncovertebral joints were exposed. [place] distraction pins were placed at the C5 [...] fit well and was snug. Next, the [place] pins were removed and bone wax was placed where the pins were to arrest shannan ne bleeding. A 19 mm [place] Elite plate was chosen. This is by [employer]. It was placed on top of the [...] Note Gale Godinez 33 y.o. female 1980 [id number] Proc. Date 04/23/2014 Preop Dx Stenosis C5-6 Postop Dx same Procedure Procedure(s):C5-6 ANTERIOR CERVICAL DISCECTOMY WITH FUSION & PLATING Anesthesia General Surgeon Surgeon(s) and Role: * Kg Lemons DO - Primary Oxidized Finish Plater NA EBL 50 mL Findings Findings consistent with scheduled procedure. No other abnormalities found. Complications none Specimens * No specimens in log * Drains Electronically signed by: Kg Lemons DO 04/23/2014 15:58 [facility] documented in this en counter Plan [...] + | MISCELLANEOUS LAB | | | [phone] | + +---------+ + + | MISCELANIOUS LAB | | | [phone] | + +---------+ + + Type and [...] | | Screen | | | [facility] | | [...] ST. | [address] | [place] | | | [facility] | | [address] | | | - BLOOD BANK | [...] PDT | | | | | Starting [facility] 04/23/14 at 1628, | | | | [...] | | | | | | Starting [facility] 04/23/14 at 1050, For | | [...]
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
--- OUTSIDE RECORDS SUMMARY | ~2020-07-30 | XMS | Encounter Summary ---
Demographics + + + | Address | [address] | | | [place] [address] | + + + | Home Phone | | + + + | Preferred Language | Unknown | + + + | Marital Status | | + + + | Tenriism Affiliation | 1013 | + + + | Race | White | + + + | Ethnic Group | Not or | + + + Author + + + | Author | [facility] | | | and [place] | + + + | Organization | [facility] | | | and [place] | + + + | Address | Unknown | + + + | Phone | Unavailable | + + + Support + + +---------+ + | Name | Relationship | Address | Phone | + + +---------+ + | Avery Quirzo | ECON | Unknown | | + + +---------+ + | Alissalaila Jackson | ECON | Unknown | | + + +---------+ + Care Team Providers + +------+ + | Care Masking Machine Operator Name | Role | Phone | [...] | radicular | PA-C [address] | [place] | | | | n | pain S/P | [address] | [place], | | | | | cervical | [place], | [place] [address] | | | | | spinal | [place] [address] | Phone: | | | | | fusion | Phone: | [phone] | | | | | Procedures | [phone] | Fax: | | | | | pt eval | Fax: | [phone] | | | | | | [phone] | | +--------+ + + + + + Encounter Details +--------+---------+ + + + | Date | Type | Department | Care Team | Description | +--------+---------+ + + + | 06/22/ | Office | [facility] | David Ceballos, | Neck pain on left | | 2014 | Visit | MED CTR PT [facility] | PA-C [address] | side (Primary Dx); | | | | [address] [place] | [address] [place], [place] | Posture abnormality; | | | | [place] [address] | [address] | Neuropathic pain, | | | | [phone] | | arm; Fusion of spine | | | | | Dayanara Harper, | of cervical region | | | | | PT [address] | | | | | | [place], [place] | | | | | | [address] | | | | | | | | +--------+---------+ + + + [...] documented as of this encounter Progress Notes Dayanara Harper, PT - 06/22/2014 5:09 PM PDT [facility] CTR PT [facility] [address] [place] [address] Physical Therapy Daily Treatment Note Date: 06/22/2014 Patient Information Patient Name: Gale Godinez Date of : 1980 Age: 33 y.o. Encounter Diagnoses Code Name Primary? 723.1 Neck pain on left side Yes 781.92 Posture abnormality 723.4 Neuropathic pain, arm 756.15 Fusion of spine of cervical region Date of Onset: 04/23/14 Referring Provider: David Ceballos PA-C Rehab Precautions 06/04/14 Rehab Precautions Precautions Cervical Rehab Learning Style 06/04/14 Learning Style Patient's Optimum Learning Style observation, performance of task Today's Treatment Patient Name: Gale Godinez/: 1980/ Start Time: 1600 Stop time: 1645 Duration: 45 minutes Timed Treatment Codes: 45 minutes # of PT Visits to Date: 3 Subjective: Gale comes to the pool for the first time. She has pain in the left neck and shoulder. Pain Assessment Pain Scale Used: NUMERIC Pain Rating Pre Assessment: 7 Location: neck and shoulders and left arm. Objective Patient/Caregiver Education Learner: Patient Readiness: Acceptance Method: Explanation;Demonstration;Handout Response: Verbalizes Understanding;Demonstrated Understanding Comment: Educated in pool safety, chin tuck and core bracing with water activity. Therapeutic Exercise Therapeutic Exercises: Ther Ex #1;Ther Ex #2;Ther Ex #3;Ther Ex #4 Therapeutic Exercise # 1: Water walking: forward, backward, sideways. Therapeutic Exercise Duration # 1: 15 min Therapeutic Exercise # 2: UE strengthening: Chi movments 1-8, 14, 15, 16 Therapeutic Exercise Duration # 2: 5x Therapeutic Exercise # 3: Stretches; C ROM, hamstrings, Therapeutic Exercise # 4: LE strengthening; seated flutters, abd/add. Therapeutic Exercise Duration # 4: 2 min each. Assessment Gale reported some pain in the shoulder with abd/add during water walking which worked on the deltoid C5 area. She had less pain when she walked forward which worked on C6/7. Less c omplaint of pain by the end of the session, compared to the beginning of the session. Rehabilitation potential: Patient demonstrates good potential to achieve established goals to address the documented impairments by participating in skilled physical therapy services. Next Visit Information: cont to improve strength to allow for greater functional mobility a nd tolerance. Electronically signed by: Dayanara Harper PT, 06/22/2014 17:09 Patient Name: Gale Godinez/: 1980/ y signed by Dayanara Harper PT at 06/22/2014 5:13 PM PDTdocumented in this encounter Plan of [...]
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
--- OUTSIDE RECORDS SUMMARY | ~2020-07-30 | XMS | Encounter Summary ---
Demographics + + + | Address | [address] | | | [place] [address] | + + + | Home Phone [...] Author | [facility] | | | and [place] [...] Team Providers + +------+ + | Care Radiology Therapist Name | Role | Phone | + +------+ + | Adrien Chatterjee DO | PCP | | + +------+ + Encounter Details +--------+ + + + + | Date | Type | Department | Care Team | Description | +--------+ + + + + | 05/18/ | Hospital | [facility] | Kg Lemons, | Status post cervical | | 2014 | Encounter | MED [facility] XRAY [address] | DO [address] | spinal fusion | | | | [place] | [address] [place], [place] | | | | | [place] [address] | [address] | | | | | [phone] | | | +--------+ + + + [...] tablet by | 60 | 0 | 05/15/20 | | | 5 mg | mouth every 6 hours | tablet | | 14 | 4 | | tabletIndications: | as needed (Muscle [...] tablets by | 60 | 0 | 05/15/20 | | | HYDROcodone-acetamin | mouth every [...] + + + | XR CERVICAL SPINE 2 | Routin | 05/18/2014 | Status post | Results for this | | OR 3 VIEWS | e | 2:24 PM | cervical spinal | procedure are in the | | | | PDT | fusion | results section. | + +--------+ + + + documented in this encounter Results XR CERVICAL SPINE 2 OR 3 VIEWS (05/18/2014 2:24 PM PDT) + + | Specimen | + + | | + + + + + | Narrative | Performed At | + + + | EXAM: XR CERVICAL SPINE 2 OR 3 VIEWS dated 05/18/2014 2:10 PM | [facility] | | HISTORY:S/P cervical fusion COMPARISON: Preoperative radiographs | LAB | | dated November 22, 2013. Postoperative radiograph 04/23/2014. | | | FINDINGS: Stable anterior fusion and interbody graft placement at | | | C5-C6. Resolution of operative changes in the precervical soft | | | tissues. The visible lung apices are clear. IMPRESSION - | | | Stable fusion related changes at C5-C6. Dictated and Signed by: | | | Sina Alexander MD Electronically signed: 05/18/2014 4:37 PM | | + + + + + | Procedure Note | + + | Ant, Rad Results In - 05/18/2014 4:40 PM PDT EXAM: XR CERVICAL SPINE 2 OR 3 VIEWS | | dated 05/18/2014 2:10 PMHISTORY:S/P cervical fusionCOMPARISON: Preoperative radiographs | | dated November 22, 2013. Postoperativeradiograph 04/23/2014.FINDINGS: Stable anterior | | fusion and interbody graft placement at C5-C6. Resolution of operative changes in the | | precervical soft tissues. The visiblelung apices are clear.IMPRESSION -Stable fusion | | related changes at C5-C6.Dictated and Signed by: Sina Alexander MD Electronically | | signed: 05/18/2014 4:37 PM | |FINDINGS: Stable anterior fusion and interbody graft placement at C5-C6. | |Resolution of operative changes in the precervical soft tissues. The visible | |lung apices are clear. | | | |IMPRESSION - | | | |Stable fusion related changes at C5-C6. | | | |Dictated and Signed by: Sina Alexander MD | | Electronically signed: 05/18/2014 4:37 PM | + + + +---------+ + + | Performing | Address | City/State/Zipcode | Phone Number | | Organization | | | | + +---------+ + + | [facility] | | | [phone] | + +---------+ + + | [facility] | | | [phone] | + +---------+ + + documented in this encounter Visit Diagnoses + + | Diagnosis | + + | Status post cervical spinal fusion Arthrodesis status | + + documented in this encounter"
--- OUTSIDE RECORDS SUMMARY | ~2020-07-30 | XMS | Clinical Summary ---
Demographics + + + | Address | [address] | | | [place] [address] | + + + | Home Phone | | + + + | Preferred Language | Unknown | + + + | Marital Status | | + + + | Mu-Ism Affiliation | 1013 | + + + | Race | White | + + + | Ethnic Group | Not or | + + + Author + + + | Author | [facility] | | | and [place] | + + + | Organization | [facility] | | | [...] Team Providers + +------+ + | Care Cleaning Crew Member Name | Role | Phone | + +------+ + | Issa Reid MD | PCP | | + +------+ + Allergies + + + + + + | Active Allergy | Reactions | Severity | Noted | Comments | | | | | Date | | + + + + + + | Amoxicillin | Swelling | Medium | 11/12/19 | Swollen jaw | | | | | 14 | | + + + + + + | Cephalexin | Anaphylaxis | High | 04/23/20 | Throat swelling | | | | | 14 | | + + + + + + | Latex | Itching, Rash | Low | 11/07/19 | | | | | | 14 | | + + + + + + Medications + + + +---------+------+------+-------+ | Medication | Sig | Dispensed | Refills | Star | End | Statu | | | | | | t | Date | s | | | | | | Date | | | + + + +---------+------+------+-------+ | VENTOLIN HFA 108 | Take 2 puffs by | | 1 | 06/1 | | Activ | | (90 Base) MCG/ACT | mouth 4 times daily. | | | 20 | | e | | inhaler | | | | 18 | | | + + + +---------+------+------+-------+ | ibuprofen | Take 1 tablet by | | 0 | 05/1 | | Activ | | (ADVIL,MOTRIN) 800 | mouth 3 times daily | | | /20 | | e | | MG tablet | as needed. | | | 18 | | | + + + +---------+------+------+-------+ | methylPREDNISolone | Follow package | 21 | 0 | 06/2 | | Activ | | (MEDROL DOSEPAK) 4 | directions. | tablet | | /20 | | e | | mg tablet | | | | 18 | | | + + + +---------+------+------+-------+ Active Problems + + + | Problem | Noted Date | + + + | Abnormal ECG | 04/28/2019 | + + + | Atypical chest pain | 04/28/2019 | + + + | Obesity | 04/28/2019 | + + + | Vitamin D deficiency | 04/28/2019 | + + + | Radiculopathy of lumbosacral region | 04/28/2019 | + + + | Status post cervical spinal fusion | 08/03/2014 | + + + | Posture abnormality | 06/04/2014 | + + + | Neck pain on left side | 06/04/2014 | + + + | Neuropathic pain, arm | 06/04/2014 | + + + | Fusion of spine of cervical region | 06/04/2014 | + + + | Cervical spondylosis | 04/23/2014 | + + + | Spinal stenosis | 04/23/2014 | + + + | Cervicalgia | 04/23/2014 | + + + | Brachial Radiculitis | 04/23/2014 | + + + + + | Overview: ICD-10 Record update | + + + + + | Smoker - daily | 04/23/2014 | + + + | Anemia | | + + + | Migraines | | + + + | Atrioventricular block, first degree | | + + + Family History + + +------+ + | Medical History | Relation | Name | Comments | + + +------+ + | Migraines | Daughter | | | + + +------+ + | Cancer | Other | | grandfather | + + +------+ + | Diabetes | Other | | grandparents | + + +------+ + | Hypertension | Other | | grandfather | + + +------+ + | Arthritis | Other | | grandmother | + + +------+ + | Migraines | Sister | | | + + +------+ + + +------+--------+ + | Relation | Name | Status | Comments | + +------+--------+ + | Daughter | | | | + +------+--------+ + | Other | | | | + +------+--------+ + | Other | | | | + +------+--------+ + | Other | | | | + +------+--------+ + | Other | | | | + +------+--------+ + | Sister | | | | + +------+--------+ + Social History + + + +--------+------+ | Tobacco Use | Types | Packs/Day | Years | Date | | | | | Used | | + + + +--------+------+ | Former Smoker | Cigarettes | | | | + + + [...] on file | | + + + Last Filed Vital Signs + + + + + | Vital Sign | Reading | Time Taken | Comments | + + + + + | Blood Pressure | 132/70 | 04/30/2019 2:50 PM | | | | | PDT | | + + + + + | Pulse | 70 | 04/30/2019 2:50 PM | | | | | PDT | | + + + + + | Temperature | 36.6 C (97.8 F) | 07/10/2014 2:59 AM | | | | | PDT | | + + + + + | Respiratory Rate | 14 | 12/25/2014 10:14 AM | | | | | PDT | | + + + + + | Oxygen Saturation | 98% | 07/10/2014 2:51 AM | | | | | PDT | | + + + + + | Inhaled Oxygen | - | - | | | Concentration | | | | + + + + + | Weight | 83.9 kg (184 lb 14.4 | 04/30/2019 2:50 PM | | | | oz) | PDT | | + + + + + | Height | 158.8 cm (5' 2.5") | 04/30/2019 2:50 PM | | | | | PDT | | + + + + + | Body Mass Index | 33.28 | 04/30/2019 2:50 PM | | | | | PDT | | + + + + + Plan of Treatment + + + + + | Health Maintenance | Due Date | Last | Comments | | | | Done | | + + + + + | Hepatitis C | | | | | Screening | 9 | | | + + + + + | Medication | | | | | Management | 9 | | | + + + + + | Vaccine: | | | | | Dtap/Tdap/Td (1 - | 8 | | | | Tdap) | | | | + + + + + | Cervical Cancer | | | | | Screening (Pap) | 9 | | | + + + + + | Med Mgmt: BUN | | 03/21/20 | | | | 0 | 19, | | | | | 03/21/20 | | | | | 19, | | | | | 04/16/20 | | | | | 14 | | + + + + + | Med Mgmt: Cr | | 03/21/20 | | | | 0 | 19, | | | | | 03/21/20 | | | | | 19, | | | | | 04/16/20 | | | | | 14 | | + + + + + | Vaccine: Influenza | | | | | (#1) | 0 | | | + + + + + Implants + +------+-------+ +--------+--------+--------+ | Implanted | Type | Area | Manufacture | Device | Shelf | Model | | | | | r | | Expira | / | | | | | | Identi | tion | Serial | | | | | | fier | Date | / Lot | + +------+-------+ +--------+--------+--------+ | Allograft Lordotic [id number] - | | N/A: | SOF[employer]OR | | 01/20/ | [id number] | | [id number]: Qty: 1 on | | Neck | DANEK - DIV | | 2016 | | | 04/23/2014 by Kg Lemons | | | [employer] | | | /[id number] | | Vamsi DO at [facility] | | | - [facility] | | | 87 | | [facility] | | | | | | /[id number] | | | | | | | | [address] | + +------+-------+ +--------+--------+--------+ | Gisela Carbajal [address] Aseptic | | N/A: | OSTEOTECH - | | 01/15/ | [id number] | | - [id number]: Qty: | | Neck | OSTT | | 2015 | | | 1 on 04/23/2014 by Cristo, | | | | | | /[id number] | | Kg Agustin DO at [facility] | | | | | | [phone] | | [facility] | | | | | | / | + +------+-------+ +--------+--------+--------+ | Plate Cameron V-Elite 19mm - | | N/A: | [employer] - | | | [id number] | | [id number]: Qty: 1 on | | Neck | MEDT | | | / | | 04/23/2014 by Kg Lemons | | | | | | | | A, DO at [facility] | | | | | | | | [facility] | | | | | | | + +------+-------+ +--------+--------+--------+ | Screw Slf-Drl V/A 4.0x13mm - | | N/A: | [employer]OR | | | [id number] | | [id number]: Qty: 4 on | | Neck | DANEK - DIV | | | / | | 04/23/2014 by Kg Lemons | | | [employer] | | | | | A, DO at [facility] | | | - [facility] | | | | | [facility] | | | | | | | + +------+-------+ +--------+--------+--------+ Results Not on filefrom Last 3 Months Insurance + +--------+ +--------+ +---------+--------+ | Payer | Benefi | Subscriber | Effect | Phone | Address | Type | | | t Plan | ID | roya | | | | | | / | | Dates | | | | | | Group | | | | | | + +--------+ +--------+ +---------+--------+ | [employer] | [employer] | [id number] | 11/10/19 | [phone] | | Medica | | MEDICAID HMO | HEALTH | | 14-Pre | 1 | | id | | | MDCD | | sent | | | | | | [place] | | | | | | + +--------+ +--------+ +---------+--------+ + +--------+ +--------+ + + | Guarantor Name | Accoun | Relation to | Date | Phone | Billing Address | | | t Type | Patient | of | | | | | | | | | | + +--------+ +--------+ + + | Gale Jackson | Person | Self | [birth year] | [address] | | [place] | al/Fam | | 1980 | [phone] | [place] [address] | | | angela | | | 9 (Home) | | + +--------+ +--------+ + + | Gale Jackson | Person | Self | [birth year] | | [address] | | [place] | al/Vinny | | 1980 | [phone] | [place] [address] | | | [place] | | | 9 (Home) | | + +--------+ +--------+ + + Advance Directives + + + + + | Type | Date Recorded | Patient | Explanation | | | | Precipitator Supervisor | | + + + + + | Power of | | | | | Square Dance Caller | | | | + + + + + | Advance | 04/16/2014 10:08 | | | | Directive | AM | | | + + + + + + + + + + | Code Status | Date | Date | Comments | | | Activated | Inactivated | | + + + + + | Full Code | 04/23/2014 | 04/23/2014 | | | | 4:29 PM | 9:42 PM | | + + + + +
--- OUTSIDE RECORDS SUMMARY | ~2020-07-30 | XMS | Encounter Summary ---
Demographics + + + | Address | [address] | | | [place] [address] | + + + | Home Phone | | + + + | Preferred Language | Unknown | + + + | Marital Status | | + + + | Roman Catholic Affiliation | 1013 | + + + | Race | White | + + + | Ethnic Group | Not or | + + + Author + + + | Author | [facility] | | | and [place] | + + + | Organization | [facility] | | | [...] Team Providers + +------+ + | Care Erp Technical Lead Name | Role | Phone | + +------+ + | Adrien Chatterjee DO | PCP | | + +------+ + Reason for Visit + + + | Reason | Comments | + + + | Follow-up | Pre op | + + + Encounter Details +--------+---------+ + + + | Date | Type | Department | Care Team | Description | +--------+---------+ + + + | 04/16/ | Office | [facility] | David Ceballos, | Cervical stenosis of | | 2013 | Visit | NEUROSURGERY [address] | PA-C [address] | spinal canal | | | | [address] | [place], [place] | (Primary Dx); | | | | [place], [place] | [address] | Cervical radicular | | | | [address] | | pain; Cervical | | | | [phone] | | spondylosis | +--------+---------+ + + + Social History [...] + + + | Blood Pressure | 118/68 | 04/16/2014 11:27 AM | | | | | PDT | | + + + + + | Pulse | 57 | 04/16/2014 11:27 AM | | | | | PDT | | + + + + + | Temperature | - | - | | + + + + + | Respiratory Rate | 16 | 04/16/2014 11:27 AM | | | | | PDT | | + + + + + | Oxygen Saturation | - | - | | + + + + + | Inhaled Oxygen | - | - | | | Concentration | | | | + + + + + | Weight | 76.7 kg (169 lb) | 04/16/2014 11:27 AM | | | | | PDT | | + + + + + | Height | 157.5 cm (5' 2") | 04/16/2014 11:27 AM | | | | | PDT | | + + + + + | Body Mass Index | 30.91 | 04/16/2014 11:27 AM | | | | | PDT | | + + + + + documented in this encounter Patient Instructions Patient Instructions David Ceballos PA-C - 04/16/2014 11:49 AM PDTPlease discontinue sm oking. No anti-inflammatories. documented in this encounter Progress Notes David Ceballos PA-C - 04/16/2014 11:31 AM PDT Kg Lemons D.O. [address] [facility], [address] [place] [address] FAX: NEUROSURGERY HISTORY AND PHYSICAL EXAMINATION CHIEF COMPLAINT: Chief Complaint Patient presents with Follow-up Pre op HISTORY OF PRESENT ILLNESS: The patient is a 33 y.o. female here for her preoperative visi t for her scheduled cervical fusion. Her symptoms remain unchanged since her last visit wit [facility]. 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 UNABLE TO FIND Med Name: Goody's Powder. [...] has no apparent deficits with short or mcfp memory. CRANIAL NERVES: II: Acuity is intact. [...] Intrinsics 4+ 4 Ulnar Intrinsics 4+ 4 Computerized Table Cutter Strength 4+ 4 Hip Flexion 5 5 [...] spent 25 minutes in visit with Gale Gdoinez today with the majority of time spent counselling the patient on her diagnosis, discussing options for her care, and coordinating her care. ELECTRONICALLY SIGNED BY: David Ceballos PA-C, .. 04/16/2014 11:31 documented in thi s encounter Plan of Treatment Not on filedocumented as of this encounter Visit Diagnoses + + | Diagnosis | + + | Cervical stenosis of spinal canal - Primary Spinal stenosis in cervical region | + + | Cervical radicular pain Brachial neuritis or radiculitis nos | + + | Cervical spondylosis Cervical spondylosis without myelopathy | + + documented in this encounter
--- OUTSIDE RECORDS SUMMARY | ~2020-07-30 | XMS | Encounter Summary ---
Demographics + + + | Address | [address] | | | [place] [address] | + + + | Home Phone | | + + + | Preferred Language | Unknown | + + + | Marital Status | | + + + | Jehovah'S Witness Affiliation | 1013 | + + + | Race | White | + + + | Ethnic Group | Not or | + + + Author + + + | Author | [facility] | | | and [place] | + + + | Organization | [facility] | | [...] Team Providers + +------+ + | Care Sports Announcer Name | Role | Phone | + [...] | | | [address] | [place] [address] | | | | | [place] [address] | | | | | | [phone] | | | +--------+ + + + [...] + +--------+ + + + | XR THORACIC SPINE 2 | Routin | 09/20/2016 | | Results for this | | VW | e | 5:25 PM | | procedure are in the | | | | PST | | results section. | + +--------+ + + + documented in this encounter Results XR Thoracic Spine 2 Vw (09/20/2016 5:25 PM PST) + + | Specimen | [...]
--- OUTSIDE RECORDS SUMMARY | ~2020-07-30 | XMS | Encounter Summary ---
Demographics + + + | Address | [address] | | | [place] [address] | + + + | Home Phone | | + + + | Preferred Language | Unknown | + + + | Marital Status | | + + + | Advent Affiliation | 1013 | + + + | Race | White | + + + | Ethnic Group | Not or | + + + Author + + + | Author | [facility] | | | and [place] | + + + | Organization | [facility] | | | [...] Team Providers + +------+ + | Care Fountain Supervisor Name | Role | Phone | + +------+ + | Adrien Chatterjee DO | PCP | | + +------+ + Encounter Details +--------+ + + + + | Date | Type | Department | Care Team | Description | +--------+ + + + + | 04/17/ | Orders Only | [facility] | Kg Lemons, | Status post cervical | | 2014 | | NEUROSURGERY [address] | DO [address] | spinal fusion | | | | [address] | [address] [place], [place] | (Primary Dx) | | | | [place], [place] | [address] | | | | | [address] | | | | | | [phone] | | | +--------+ + + + [...] filedocumented as of this encounter Results XR CERVICAL SPINE 2 [...] + | MISCELLANEOUS LAB | | | [phone] | + +---------+ + + | MISCELANIOUS LAB | | | [phone] | + +---------+ + + documented in this encounter Visit Diagnoses + + | Diagnosis | + + | Status post cervical spinal fusion - Primary Arthrodesis status | + + documented in this encounter"
--- OUTSIDE RECORDS SUMMARY | ~2020-07-30 | XMS | Encounter Summary ---
Demographics + + + | Address | [address] | | | [place] [address] | + + + | Home Phone | | + + + | Preferred Language | Unknown | + + + | Marital Status | | + + + | Synagogue Affiliation | 1013 | + + + | Race | White | + + + | Ethnic Group | Not or | + + + Author + + + | Author | [facility] | | | and [place] [...] Team Providers + +------+ + | Care Electrical Maintenance Mechanic Name | Role | Phone | + +------+ + | Ji Tony DO | PCP | | + +------+ + Encounter Details +--------+ + + + + | Date | Type | Department | Care Team | Description | +--------+ + + + + | 05/31/ | Imaging | [facility] | Provider, | | | 2018 | Exam | [facility] | MD [address] | | | | | IMAGING [address] | [address] | | | | | [address] | [place] [address] | | | | | [place] [address] | | | | | | [phone] | | | +--------+ + + + [...] + + | MRI CERVICAL SPINE | Routin | 05/28/2018 | | Results for this | | WO CONTRAST | e | 12:10 PM | | procedure are in the | | | | PDT | | results section. | + +--------+ + + + documented in this encounter Results MRI Cervical Spine wo Contrast (05/28/2018 12:10 PM PDT) + + | Specimen | [...]
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
--- OUTSIDE RECORDS SUMMARY | ~2020-07-30 | XMS | Encounter Summary ---
Demographics + + + | Address | [address] | | | [place] [address] | + + + | Home Phone | | + + + | Preferred Language | Unknown | + + + | Marital Status | | + + + | Hinduism Affiliation | 1013 | + + + | Race | White | + + + | Ethnic Group | Not or | + + + Author + + + | Author | [facility] | | | and [place] | + + + | Organization | [facility] | | | [...] Team Providers + +------+ + | Care Welding Tester Name | Role | Phone | + +------+ + | Adrien Chatterjee DO | PCP | | + +------+ + Encounter Details +--------+ + + + + | Date | Type | Department | Care Team | Description | +--------+ + + + + | 07/06/ | Documentati | [facility] | Dayanara Harper | | | 2013 | on | MED CTR THERAPY PT | K, PT [address] | | | | | OP [address] | [address] [place], [place] | | | | | [place], [place] | [address] | | | | | [address] | | | | | | [phone] | | | +--------+ + + + [...] encounter Progress Notes Dayanara Harper, PT - 07/06/2014 2:39 PM [facility] [address] [place] [address] Cancellation/No Show Date: 07/06/2014 Patient Information Patient Name: Gale Godinez Date of : 1980 Age: 34 y.o. Reason for missed visit: Gale is having increased pain today in the neck and arm. She connie led in to cancel her aquatic exercise program. She also called the Dr office early this morn ing due to her increased pain. Phone call placed: no Plan: Cont with POC. Electronically signed by: Dayanara Harper, PT, 07/06/2014 14:39 Patient Name: Gale Godinez/: 1980/ documented in [...]
--- OUTSIDE RECORDS SUMMARY | ~2020-07-30 | XMS | Encounter Summary ---
Demographics + + + | Address | [address] | | | [place] [address] | + + + | Home Phone [...] | Author | [facility] | | | and [place] [...] Team Providers + +------+ + | Care Threader Name | Role | Phone | + +------+ + | Adrien Chatterjee DO | PCP | | + +------+ + Reason for Visit +--------+--------+ + | Reason | Onset | Comments | | | Date | | +--------+--------+ + | Other | 12/03/ | | | | 2014 | | +--------+--------+ + Encounter Details +--------+ + + + + | Date | Type | Department | Care Team | Description | +--------+ + + + + | 12/03/ | Telephone | [facility] | Kg Lemons, | Other | | 2014 | | NEUROSURGERY [address] | DO [address] | | | | | [address] | [address] [place], [place] | | | | | [place], [place] | [id number] | | | | | [address] | | | | | | [phone] | | | +--------+ + + + [...] Encounter - Germán Jackson Cert MA - 12/07/2014 8:44 AM PSTI called and spoke swati Beasley and relayed the referral message from Dr. Lemons to her. Her insurance has denied coverage for injections. As of now, she should continue doing PT and working on weight los s until her next visit. If she is not better at that visit, he will discuss the possibility of a Lumbar fusion with her. She is okay with this plan. GERMÁN JACKSON elephone Encounte r - Brenda Pinon - 12/03/2014 4:10 PM PSTAmanda called returning germán call.Alondra gonzalez signed by Brenda Pinon at 12/03/2014 4:13 PM PSTTelephone Encounter - Bernadine Bowers - 12/03/2014 3:22 PM PSTPatient stated that she is returning Germán's call. Please call b ack. documented in this enc ounter Plan of Treatment Not on filedocumented as of this encounter Visit Diagnoses Not on filedocumented in this encounter"
--- OUTSIDE RECORDS SUMMARY | ~2020-07-30 | XMS | Encounter Summary ---
Demographics + + + | Address | [address] | | | [place] [address] | + + + | Home Phone [...] + + + | Author | [facility] | | | and [place] | + + + | Organization | [facility] | | [...] Team Providers + +------+ + | Care Butcherette Name | Role | Phone | + [...] | radicular | PA-C [address] | [place] | | | | n | pain S/P | [address] | [place], | | | | | cervical | [place], | [place] [address] | | | | | spinal | [place] [address] | Phone: | | | | | fusion | Phone: | [phone] | | | | | Procedures | [phone] | Fax: | | | | | pt eval | Fax: | [phone] | | | | | | [phone] | | +--------+ + + + + + Encounter Details +--------+---------+ + + + | Date | Type | Department | Care Team | Description | +--------+---------+ + + + | 07/02/ | Office | [facility] | David Ceballos, | Posture abnormality | | 2013 | Visit | MED CTR THERAPY PT | PA-C [address] | (Primary Dx); Neck | | | | OP [address] [place] | [place], [place] | pain on left side; | | | | [place], [place] | [address] | Neuropathic pain, | | | | [address] | | arm; Fusion of spine | | | | [phone] | Lisa Mosley R, | of cervical region | | | | | MANUFACTURING PROJECT MANAGER [address] | | | | | | [place], [place] | | | | | | [address] | | | | | | [phone] | | | | | | | [...] documented as of this encounter Progress Notes Lisa Mosley, MANUFACTURING PROJECT MANAGER - 07/02/2014 4:37 PM PDTFormatting of this note might be different f rom the original. [facility] THERAPY PT OP [address] [place] [address] Physical Therapy Daily Treatment Note Date: 07/02/2014 Patient Information Patient Name: Gale Godinez Date of : 1980 Age: 33 y.o. Encounter Diagnoses Code Name Primary? 781.92 Posture abnormality Yes 723.1 Neck pain on left side 723.4 Neuropathic pain, arm 756.15 Fusion of spine of cervical region Date of Onset: 04/23/14 Referring Provider: David Ceballos PA-C Rehab Precautions 06/04/14 Rehab Precautions Precautions Cervical Rehab Learning Style 06/04/14 Learning Style Patient's Optimum Learning Style observation, performance of task Today's Treatment Patient Name: Gale Godinez/: 1980/ Start Time: 1425 Stop time: 1515 Duration: 50 minutes Timed Treatment Codes: 45 minutes # of PT Visits to Date: 5 Subjective: Pt states that she is walking a few blocks a day. Hip pain stops her from going further. She has had hip pain/SI issue since a . Pt liked the tape it helped the "itching" sensation of her skin. Decreased pain. Pt has not tried desensitization tech yet. Pt reports family stress increases her pain. Pain Assessment Pain Rating Pre Assessment: 6 Pain Rating Post Assessment: 4 Location: posterior traps Objective Patient/Caregiver Education Add Another User?: yes Learner: Family Readiness: Acceptance Method: Explanation;Demonstration Response: Verbalizes Understanding Comment: Pt daugther was taught on kinesio tape application. She used her cell phone for a video. Manual Therapy Manual Therapy Site: Kinesio tape bilateral unloading of shoulders/traps. I strip at rhombo id. Body mechanics Body Mechanics: instruction of body mechanics with spinning doffer;diaphragmatic breathing for relaxation tech. Neuromuscular re-education Functional Mobility Note: Patient seen for facilitation to encourage increased ROM and gent le assisted stretches as well as to decrease spasming, Further work with neutral spine in al l positions, desensitization training especially over the left shoulder. Further tips given on desensitization. Tape worked well. Calming. Assessment Pt very receptive to information given to her and verbalizes that she is working on her radha reness with posture. Rehabilitation potential: Patient demonstrates good potential to achieve established goals to address the documented impairments by participating in skilled physical therapy services. Next Visit Information: Aquatic therapy. Electronically signed by: Lisa Mosley PTA, 07/02/2014 16:47 Patient Name: Gale Godinez/: 1980/ documented in [...] (vertebra) | + + documented in this encounter
--- OUTSIDE RECORDS SUMMARY | ~2020-07-30 | XMS | Encounter Summary ---
Demographics + + + | Address | [address] | | | [place] [address] | + + + | Home Phone | | + + + | Preferred Language | Unknown | + + + | Marital Status | | + + + | Zoroastrianism Affiliation | 1013 | + + + | Race | White | + + + | Ethnic Group | Not or | + + + Author + + + | Author | [facility] | | | and [place] | + + + | Organization | [facility] | | | [...] Team Providers + +------+ + | Care Core Paster Name | Role | Phone | + [...] + + | Closed | Specialty | Neurology | Diagnoses | Crist[place], | Tristian, | | | Services | | Paralysis | Kg Agustin DO | Manuel Mace MD | | | Required | | ([facility]) | [address] | Need | | | | | Numbness | [address] | updated | | | | | | [place] | address | | | | | | [address] | | | | | | | Phone: | | | | | | | [phone] | | | | | | | Fax: | | | | | | | [phone] | | +--------+ + + + + + Encounter Details +--------+ + + + + | Date | Type | Department | Care Team | Description | +--------+ + + + + | 07/14/ | Orders Only | [facility] [place] | Kg Lemons, | Paralysis ([facility]) | | 2013 | | NEUROSURGERY [address] | DO [address] | (Primary Dx); | | | | [address] | [address] [place] | Numbness | | | | [place] | [address] | | | | | [address] | | | | | | [phone] | | | +--------+ + + + [...] | + + +--------+ + + | * [facility] [place] | Outpatient | Routin | Paralysis (HCC) | Ordered: 07/14/2014 | | Neurology - AMB | Referral | e | Numbness | | | Referral | | | | | + + +--------+ + + documented as of this encounter Visit Diagnoses + + | Diagnosis | + + | Paralysis (HCC) - Primary Paralysis, unspecified | + + | Numbness Disturbance of skin sensation | + + documented in this encounter"
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
--- OUTSIDE RECORDS SUMMARY | ~2020-07-30 | XMS | Encounter Summary ---
Demographics + + + | Address | [address] | | | [place] [address] | + + + | Home Phone [...] Author | [facility] | | | and [...] Team Providers + +------+ + | Care Mortgage Loan Specialist Name | Role | Phone | + +------+ + | Issa Reid MD | PCP | | + +------+ + Reason for Visit +--------+--------+ + | Reason | Onset | Comments | | | Date | | +--------+--------+ + | LABS | 04/28/ | | | | 2018 | | +--------+--------+ + Encounter Details +--------+ + + + + | Date | Type | Department | Care Team | Description | +--------+ + + + + | 04/28/ | Telephone | [facility] | José Cleaning | XIMENA | | 2019 | | ERIC [address] | MD Jayme [address] | | | | | [place], | [address] [place] | | | | | [place] [address] | [place] [address] | | | | | [phone] | [phone] | | | | | | | [...] this encounter Miscellaneous Notes Telephone Encounter - Rozina Cueva Medical Assistant - 04/28/2019 1:04 PM PDTOrders fax ed. ele phone Encounter - Светлана Denton RN - 04/28/2019 12:34 PM PDTOrders done ............. .............................Светлана Denton, DUNCAN on 04/28/19 at 12:35 elephone Encount er - Rozina Cueva Pediatric Geneticist - 04/28/2019 10:34 AM PDTPatient scheduled for an logan ointment on 05/05/2019 and is needing a fasting Lipid panel. Please order, thank you. I will fax order [facility] [place] per patient request. documen aislinn in this encounter Plan of Treatment + +------+--------+ + + | Name | Type | Priori | Associated Diagnoses | Order Schedule | | | | ty | | | + +------+--------+ + + | Lipid Panel | Lab | Routin | Encounter for | Expected: | | | | e | lipid screening for | 04/28/2019, Expires: | | | | | cardiovascular | 04/27/2020 | | | | | disease | | + +------+--------+ + + documented as of this encounter Visit Diagnoses + + | Diagnosis | + + | Encounter for lipid screening for cardiovascular disease - Primary | + + documented in this encounter"
--- OUTSIDE RECORDS SUMMARY | ~2020-07-30 | XMS | Encounter Summary ---
Demographics + + + | Address | [address] | | | [place] [address] | + + + | Home Phone [...] Author + + + | Author | [facility] | | | and [place] | + + + | Organization | [facility] | | [...] Team Providers + +------+ + | Care Saw Repairer Name | Role | Phone | + +------+ + | Issa Reid MD | PCP | | + +------+ + Encounter Details +--------+ + + + + | Date | Type | Department | Care Team | Description | +--------+ + + + + | 05/01/ | Abstract | [facility] | Mikeymerari José | | | 2018 | | CARDIOLOGY [address] | MD Jayme [address] | | | | | [place], | [address] [place] | | | | | [place] [address] | [place] [address] | | | | | [phone] | [phone] | | | | | | | [...] | + +--------+ + + + | EXTERNAL LAB: | Routin | 04/29/2019 | | Results for this | | TRIGLYCERIDES | e | | | procedure are in the | | | | | | results section. | + +--------+ + + + | EXTERNAL LAB: | Routin | 04/29/2019 | | Results for this | | CHOLESTEROL, HDL | e | | | procedure are in the | | | | | | results section. | + +--------+ + + + | EXTERNAL LAB: | Routin | 04/29/2019 | | Results for this | | CHOLESTEROL, TOTAL | e | | | procedure are in the | | | | | | results section. | + +--------+ + + + | EXTERNAL LAB: | Routin | 04/29/2019 | | Results for this | | CHOLESTEROL, LDL | e | | | procedure are in the | | | | | | results section. | + +--------+ + + + | LIPID PANEL | Routin | 04/29/2019 | | Results for this | | | e | | | procedure are in the | | | | | | results section. | + +--------+ + + + | EXTERNAL LAB: BUN | Routin | 03/21/2019 | | Results for this | | | e | | | procedure are in the | | | | | | results section. | + +--------+ + + + | EXTERNAL LAB: | Routin | 03/21/2019 | | Results for this | | GLUCOSE | e | | | procedure are in the | | | | | | results section. | + +--------+ + + + | EXTERNAL LAB: | Routin | 03/21/2019 | | Results for this | | TROPONIN T | e | | | procedure are in the | | | | | | results section. | + +--------+ + + + | EXTERNAL LAB: | Routin | 03/21/2019 | | Results for this | | CALCIUM | e | | | procedure are in the | | | | | | results section. | + +--------+ + + + | EXTERNAL LAB: CARBON | Routin | 03/21/2019 | | Results for this | | DIOXIDE | e | | | procedure are in the | | | | | | results section. | + +--------+ + + + | EXTERNAL LAB: | Routin | 03/21/2019 | | Results for this | | CHLORIDE | e | | | procedure are in the | | | | | | results section. | + +--------+ + + + | EXTERNAL LAB: | Routin | 03/21/2019 | | Results for this | | POTASSIUM | e | | | procedure are in the | | | | | | results section. | + +--------+ + + + | EXTERNAL LAB: EUGENIO | Routin | 03/21/2019 | | Results for this | | | e | | | procedure are in the | | | | | | results section. | + +--------+ + + + | EXTERNAL LAB: ARVIN | Routin | 03/21/2019 | | Results for this | | | e | | | procedure are in the | | | | | | results section. | + +--------+ + + + | EXTERNAL LAB: Michelle TYPE | Routin | 03/21/2019 | | Results for this | | NATURETIC PEPTIDE | e | | | procedure are in the | | | | | | results section. | + +--------+ + + + | EXTERNAL LAB: EGFR | Routin | 03/21/2019 | | Results for this | | | e | | | procedure are in the | | | | | | results section. | + +--------+ + + + | EXTERNAL LAB: | Routin | 03/21/2019 | | Results for this | | CREATININE | e | | | procedure are in the | | | | | | results section. | + +--------+ + + + | CBC WITH | Routin | 03/21/2019 | | Results for this | | DIFFERENTIAL | e | | | procedure are in the | | | | | | results section. | + +--------+ + + + | COMPREHENSIVE | Routin | 03/21/2019 | | Results for this | | METABOLIC PANEL | e | | | procedure are in the | | | | | | results section. | + +--------+ + + + documented in this encounter Results Lipid Panel (04/29/2019) + +---------+ + + + | Component | Value | Ref Range | Performed | Pathologist | | | | | At | Signature | + +---------+ + + + | VLDL | 33 | | | | | Cholesterol | | | | | | Stalin | | | | | + +---------+ + + + | Chol/HDL | 5.4 (A) | 4.4 | | | | Ratio | | | | | + +---------+ + + + | Non-HDL | 134 (A) | 130 | | | | Cholesterol | | | | | + +---------+ + + + + + | Specimen | + + | Blood | + + External Lab: Triglycerides (04/29/2019) + +---------+ + + + | Component | Value | Ref Range | Performed | Pathologist | | | | | At | Signature | + +---------+ + + + | Triglycerid | 165 (A) | 150 | | | | es, | | | | | | External | | | | | + +---------+ + + + + + | Specimen | + + | Blood | + + External Lab: Cholesterol, HDL (04/29/2019) + + + + + + | Component | Value | Ref Range | Performed | Pathologist | | | | | At | Signature | + + + + + + | HDL | 30.5 (A) | 40 mg/dl | | | | Cholesterol | | | | | | , External | | | | | + + + + + + + + | Specimen | + + | Blood | + + External Lab: Cholesterol, Total (04/29/2019) + +-------+ + + + | Component | Value | Ref Range | Performed | Pathologist | | | | | At | Signature | + +-------+ + + + | Cholesterol | 164 | mg/dl | | | | , Total, | | | | | | External | | | | | + +-------+ + + + + + | Specimen | + + | Blood | + + External Lab: Cholesterol, LDL (04/29/2019) + +---------+ + + + | Component | Value | Ref Range | Performed | Pathologist | | | | | At | Signature | + +---------+ + + + | LDL | 101 (A) | 100 | | | | Cholesterol | | | | | | , Direct, | | | | | | External | | | | | + +---------+ + + + + + | Specimen | + + | Blood | + + CBC with Differential (03/21/2019) + +-------+ + + + | Component | Value | Ref Range | Performed | Pathologist | | | | | At | Signature | + +-------+ + + + | MCH | 30.0 | 26.0 - 33.0 pg | | | + +-------+ + + + | MCHC | 33.0 | 30.0 - 36.0 | | | | | | g/dL | | | + +-------+ + + + + + | Specimen | + + | Blood | + + Comprehensive Metabolic Panel (03/21/2019) + +-------+ + + + | Component | Value | Ref Range | Performed | Pathologist | | | | | At | Signature | + +-------+ + + + | Anion Gap | 12 | mmol/L | | | + +-------+ + + + | Bun/Creatin | 16.5 | | | | | ine | | | | | + +-------+ + + + + + | Specimen | + + | Blood | + + External Lab: BUN (03/21/2019) + +-------+ + + + | Component | Value | Ref Range | Performed | Pathologist | | | | | At | Signature | + +-------+ + + + | BUN, | 16 | | | | | External | | | | | + +-------+ + + + External Lab: Glucose (03/21/2019) + +---------+ + + + | Component | Value | Ref Range | Performed | Pathologist | | | | | At | Signature | + +---------+ + + + | Glucose, | 107 (A) | 100 | | | | External | | | | | + +---------+ + + + External Lab: Troponin T (03/21/2019) + +--------+ + + + | Component | Value | Ref Range | Performed | Pathologist | | | | | At | Signature | + +--------+ + + + | Troponin T, | <0.010 | | | | | External | | | | | + +--------+ + + + External Lab: Calcium (03/21/2019) + +-------+ + + + | Component | Value | Ref Range | Performed | Pathologist | | | | | At | Signature | + +-------+ + + + | Calcium, | 9.6 | | | | | External | | | | | + +-------+ + + + External Lab: Carbon Dioxide (03/21/2019) + +-------+ + + + | Component | Value | Ref Range | Performed | Pathologist | | | | | At | Signature | + +-------+ + + + | Carbon | 27 | | | | | Dioxide, | | | | | | External | | | | | + +-------+ + + + External Lab: Chloride (03/21/2019) + +-------+ + + + | Component | Value | Ref Range | Performed | Pathologist | | | | | At | Signature | + +-------+ + + + | Chloride, | 105 | | | | | External | | | | | + +-------+ + + + External Lab: Potassium (03/21/2019) + +-------+ + + + | Component | Value | Ref Range | Performed | Pathologist | | | | | At | Signature | + +-------+ + + + | Potassium, | 4.2 | | | | | External | | | | | + +-------+ + + + External Lab: Sodium (03/21/2019) + +-------+ + + + | Component | Value | Ref Range | Performed | Pathologist | | | | | At | Signature | + +-------+ + + + | Sodium, | 140 | | | | | External | | | | | + +-------+ + + + External Lab: CBC (03/21/2019) + + + + + + | Component | Value | Ref Range | Performed | Pathologist | | | | | At | Signature | + + + + + + | WBC, | 11.9 (A) | 11 | | | | External | | | | | + + + + + + | HGB, | 12.8 | | | | | External | | | | | + + + + + + | HCT, | 38.4 | | | | | External | | | | | + + + + + + | PLT, | 283 | | | | | External | | | | | + + + + + + | Neutrophils | 59.4 | | | | | %, | | | | | | External | | | | | + + + + + + | Lymphocytes | 29.1 | | | | | %, | | | | | | External | | | | | + + + + + + | Monocytes | 8.9 | | | | | %, External | | | | | + + + + + + | Eosinophils | 2.1 | | | | | %, | | | | | | External | | | | | + + + + + + | RBC, | 4.31 | | | | | External | | | | | + + + + + + | MCV, | 89 | | | | | External | | | | | + + + + + + | RDW, | 14.4 | | | | | External | | | | | + + + + + + External Lab: B Type Naturetic Peptide (03/21/2019) + +-------+ + + + | Component | Value | Ref Range | Performed | Pathologist | | | | | At | Signature | + +-------+ + + + | B-Type | 33 | 100 | | | | Naturetic | | | | | | Peptide, | | | | | | External | | | | | + +-------+ + + + + + | Specimen | + + | Blood | + + External Lab: eGFR (03/21/2019) + +-------+ + + + | Component | Value | Ref Range | Performed | Pathologist | | | | | At | Signature | + +-------+ + + + | eGFR, | 64 | | | | | External | | | | | + +-------+ + + + + + | Specimen | + + | Blood | + + External Lab: Creatinine (03/21/2019) + +-------+ + + + | Component | Value | Ref Range | Performed | Pathologist | | | | | At | Signature | + +-------+ + + + | Creatinine, | 0.97 | | | | | External | | | | | + +-------+ + + + + + | Specimen | + + | Blood | + + documented in this encounter Visit Diagnoses Not on filedocumented in this encounter"
--- OUTSIDE RECORDS SUMMARY | ~2020-07-30 | XMS | Encounter Summary ---
Demographics + + + | Address | [address] | | | [place] [address] | + + + | Home Phone | | + + + | Preferred Language | Unknown | + + + | Marital Status | | + + + | Scientologist Affiliation | 1013 | + + + | Race | White | + + + | Ethnic Group | Not or | + + + Author + + + | Author | [facility] | | | and [place] | + + + | Organization | [facility] | | | and [...] Team Providers + +------+ + | Care Hebrew Professor Name | Role | Phone | + +------+ + | Adrien Chatterjee DO | PCP | | + +------+ + Reason for Visit + +--------+ + | Reason | Onset | Comments | | | Date | | + +--------+ + | Weakness | 03/29/ | | | | 2013 | | + +--------+ + Encounter Details +--------+ + + + + | Date | Type | Department | Care Team | Description | +--------+ + + + + | 03/29/ | Telephone | [facility] | Percy Fuentes MD | Weakness | | 2013 | | NEUROSURGERY [address] | | | | | [facility] [address] | [place] [address] | | | | | MICK Mcallister | [phone] | | | | | [address] | | | | | | [phone] | | | +--------+ + + + [...] Encounter - Germán Jackson Cert MA - 04/06/2014 8:55 AM PDTFor the most part her symptoms have subsided. She still has pain in her left shoulder and into her left arm and hip. She says that her facial weakness, numbness etc. Is not there currently. She says "sh e has her days." I relayed the message to her from Dr. Lemons. Germán elephone Enc Kg Wilkinson DO - 04/05/2014 11:15 AM PDTI agree, those symptoms should not be coming from her 1-level neck disease. If they're resolved, I'll willing to proceed with ACDF C5-6. If not, she should be seen by neurology first for a more complete workup. Thanks. elephone Germán Somers Cert MA - 04/01/2014 8:42 AM PDTDr. Cristo, Please advise. GERMÁN JACKSON elephone Percy Crow MD - 03/31/2014 9:36 PM PDTShe presented to the ED but her MRI is stable. She is complaining of facial weakness and numbness, hemibody numbness, and hemibody paralys is but this was not present in the ED doctor's evaluation. She mostly had give away weaknes s and no numbness. I would recommend evaluation by neurology or neuropsych testing. Her small disc bulge is c ertainly not the cause of her much more diffuse complaints. Percy Fuentes elephone Encounter - Germán Doe Cert MA - 03/30/2014 2:36 PM PDTI called Gale back leaving a message to see if she has had any luck finding a ride over here to be evaluated for her symptoms. Germán elephone Gale Anthony - 03/30/2014 8:39 AM PDTPatient returned germán's call. She states she is not completely better. She has been walking a little on her left leg and has shooting pains on her left side occasionally. Her hand is still a little shaky as well. Electronical ly signed by Gale Ortiz at 03/30/2014 9:12 AM PDTTelephone Encounter - Germán Jackson Cert MA - 03/30/2014 8:27 AM PDTI spoke with Gale. She states she did not have a ride to our facility this weekend. She did not have any new imaging over the weekend near at her [facility] either. She states has not gotten up much yet today to know how her symptoms are so far. She says she will continue to try and find a ride here today, if possible. She will call me later today to let me know how her symptoms are in comparison to yesterday. Germán elephone Sharmaine carver - Percy Fuentes MD - 03/29/2014 11:50 PM PDTCalled by the patient and I recommended e valuation in the ED in [place]. Called by the [place] ED. She has 4/5 left weakness. Her notes document 4/5 on both krystal es when seen by Dr. Lemons. I reviewed her MRI and her symptoms could not possibly be coming from her very small C5-6 d isc bulge. She has no foraminal stenosis whatsoever and only minimal canal involvement. She was to be transferred to for a new MRI tonight and disposition. If her MRI is stabl e, I would advise for her to see a neurologist regarding her disproportionate clinical findi ngs as surgery won't make her better in my opinion if again her MRI is unchanged. If her MR I is worse, it might explain this sudden change and warrant urgent surgical intervention. Percy Fuentes documented in this encou nter Plan of Treatment Not on filedocumented as of this encounter Visit Diagnoses Not on filedocumented in this encounter
--- OUTSIDE RECORDS SUMMARY | ~2020-07-30 | XMS | Encounter Summary ---
Demographics + + + | Address | [address] | | | [place] [address] | + + + | Home Phone | | + + + | Preferred Language | Unknown | + + + | Marital Status | | + + + | Uatsdin Affiliation | 1013 | + + + | Race | White | + + + | Ethnic Group | Not or | + + + Author + + + | Author | [facility] | | | and [place] | + + + | Organization | [facility] | | | [...] Team Providers + +------+ + | Care Personnel Research Psychologist Name | Role | Phone | + [...] | radicular | PA-C [address] | | | | n | pain S/P | [address] | [place], | | | | | cervical | [place], | [place] [address] | | | | | spinal | [place] [address] | Phone: | | | | | fusion | Phone: | [phone] | | | | | Procedures | [phone] | Fax: | | | | | pt eval | Fax: | [phone] | | | | | | [phone] | | +--------+ + + + + + Encounter Details +--------+---------+ + + + | Date | Type | Department | Care Team | Description | +--------+---------+ + + + | 06/23/ | Office | [facility] | David Ceballos, | Neck pain on left | | 2013 | Visit | MED CTR THERAPY PT | PA-C [address] | side (Primary Dx); | | | | OP [address] | [place], [place] | Posture abnormality; | | | | [place], [place] | [address] | Neuropathic pain, | | | | [address] | | arm; Fusion of spine | | | | [phone] | Mehrdad Saenz, PT | of cervical region; | | | | | [address] | Cervical | | | | | [place], [place] | spondylosis without | | | | | [address] | myelopathy; | | | | | | Cervicalgia; | | | | | | Migraines | +--------+---------+ + + + Social History [...] encounter Progress Notes Mehrdad Saenz, PT - 06/23/2014 9:57 AM PDT [facility] CTR THERAPY PT OP [address] [place] [address] Physical Therapy Daily Treatment Note Date: 06/23/2014 Patient Information Patient Name: Gale Godinez Date of : 1980 Age: 33 y.o. Encounter Diagnoses Code Name Primary? 723.1 Neck pain on left side Yes 781.92 Posture abnormality 723.4 Neuropathic pain, arm 756.15 Fusion of spine of cervical region 721.0 Cervical spondylosis without myelopathy 723.1 Cervicalgia 346.90 Migraines Date of Onset: 04/23/14 Referring Provider: David Ceballos PA-C Rehab Precautions 06/04/14 Rehab Precautions Precautions Cervical Rehab Learning Style 06/04/14 Learning Style Patient's Optimum Learning Style observation, performance of task Today's Treatment Patient Name: Gale Godinez/: 1980/ Start Time: 834 Stop time: 919 Duration: 45 minutes Timed Treatment Codes: 45 minutes # of PT Visits to Date: 4 Subjective: Patient stated that she did have some pain with the water exercise but that ove rall it felt good and she liked exercise in the water. She has been doing her home program and trying to pay attention to her body mechanics. Pain Assessment Pain Scale Used: NUMERIC Pain Rating Pre Assessment: 7 Pain Rating Post Assessment: 3 Location: neck, shoulders, and left arm Objective Patient/Caregiver Education Learner: Patient Readiness: Eager Method: Explanation;Demonstration Response: Verbalizes Understanding;Demonstrated Understanding Comment: Postural alignment, body mechanics, ergonomics awareness training, functional ROM , keep moving with gentle ROM, pacing, work rest balance Posture/Cervical/Back Posture: Chin tuck;Scapular retractions/adduction Cervical program: Upper cervical rotation with chin tuck Body mechanics Body Mechanics: instruction of body mechanics with automatic lehr operator Neuromuscular re-education Functional Mobility Note: Patient seen for facilitation to encourage increased ROM and gent le assisted stretches as well as to decrease spasming, facilitation to increase awareness of shoulder position and head position and encourage neutral posture and decreased tightness, desensitization training especially over the left shoulder Therapeutic Exercise Therapeutic exercise: scapular retraction, neck AROM, bicep curls, ER 0# taken Assessment She demonstrated decreased awareness of postural alignment and body position, and had imprv oed head position and postural alignment as well as decreased pain on depature. Rehabilitation potential: Patient demonstrates excellent potential to achieve established g oals to address the documented impairments by participating in skilled physical therapy serv ices. Next Visit Information: cont to improve strengthe to allow for greater functional mobility and tolerance. Unloading with kinesio tape for upper trap tension, neuromuscular reeducation , body mechanics, postural alignment, ergonomics awarenss, precautions, exercises, education , and aquatic therapy Electronically signed by: Mehrdad Saenz PT, 06/23/2014 9:57 Patient Name: Gale Godinez/: 1980/ documented in [...] spondylosis without myelopathy | + + | Cervicalgia | + + | Migraines Migraine, unspecified, without mention of intractable migraine without | | mention of status migrainosus | + + documented in this encounter"
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
--- OUTSIDE RECORDS SUMMARY | ~2020-07-30 | XMS | Encounter Summary ---
Demographics + + + | Address | [address] | | | [place] [address] | + + + | Home Phone [...] | Author | [facility] | | [...] Team Providers + +------+ + | Care Java Enterprise Architect Name | Role | Phone | + +------+ + | Adrien Chatterjee DO | PCP | | + +------+ + Reason for Visit + +--------+ + | Reason | Onset | Comments | | | Date | | + +--------+ + | Medication Refill | 05/15/ | | | | 2013 | | + +--------+ + Encounter Details +--------+--------+ + + + | Date | Type | Department | Care Team | Description | +--------+--------+ + + + | 05/15/ | Refill | [facility] | Kg Lemons, | Medication Refill | | 2013 | | NEUROSURGERY [address] | DO [address] | | | | | [address] [facility] [address] | [address] [place], [place] | | | | | [place] | [id number] | | | | | [address] | | | | | | [phone] | | | +--------+--------+ + + + [...] Encounter - Omer Jackson Cert MA - 05/15/2014 12:24 PM PDTI called Rx refills i nto her pharmacy and let her know. Originals destroyed. OMER JACKSON elephone Encounte r - David Ceballos PA-C - 05/15/2014 11:39 AM PDTApproved elephone Encount er - Omer Jackson Cert MA - 05/15/2014 11:13 AM PDTLeft shoulder has a burning sensation t hat makes her just want to lie down. She would like a refill of her muscle relaxers and haritha n medication which does seem to help. She would like these called into her pharmacy. Please approve/deny. OMER JACKSON documented in this encounter Plan of Treatment Not on filedocumented as of this encounter Visit Diagnoses + + | Diagnosis | + + | S/P cervical spinal fusion - Primary Arthrodesis status | + + documented in this encounter"
--- OUTSIDE RECORDS SUMMARY | ~2020-07-30 | XMS | Encounter Summary ---
Demographics + + + | Address | [address] | | | [place] [address] | + + + | Home Phone [...] | Author | [facility] | | | and [...] Team Providers + +------+ + | Care Pediatric Dietician Name | Role | Phone | + [...] + | 04/28/ | Telephone | [facility] | Kg Lemons, | Other | | 2013 | | NEUROSURGERY [address] | DO [address] | | | | | [address] | [address] [place], [place] | | | | | [place], [place] | [id number] | | | | | [address] | | | | | | [phone] | | | +--------+ + + + [...] this encounter Miscellaneous Notes Telephone Encounter - Lacie Lemus - 04/29/2014 9:06 AM PDTPatient's daughter bedolla d to check on status of traveling. Patient was updated at this time. elephone Encounter - Omer Jackson Cert MA - 04/28/2014 3:18 PM PDTLeft message for patient. OMER JACKSON elephone Kg Chavez DO - 04/28/2014 2:11 PM PDTIf she feels up to it, she can go. The remy ar might help support her neck for the trip. Thanks. elephone Enco unter - Oemr Jackson Cert MA - 04/28/2014 1:26 PM PDTAmanda needs a Rx for the cervical c ollar sent to [facility] in [place], [place]. Fax #: [phone]. An order was generate d at this time and faxed. Gale states also that her daughter was ordered for court in [place] for next week and she wasn't sure if she should be traveling at this point after surgery. She wants to know if she is okay to go or not? Please advise. OMER JACKSON elephone Omer Russell Cert MA - 04/28/2014 1:02 PM PDTLeft message for Gale. OMER JACKSON elephone Yanira Roberts - 04/28/2014 12:58 PM PDTPatient left message via [facility]: "Need to see about getting a neck brace for sleeping at night. Please call." documented in this encounter Plan of Treatment Not on filedocumented as of this encounter Visit Diagnoses Not on filedocumented in this encounter
--- OUTSIDE RECORDS SUMMARY | ~2020-07-30 | XMS | Encounter Summary ---
Demographics + + + | Address | [address] | | | [place] [address] | + + + | Home Phone | | + + + | Preferred Language | Unknown | + + + | Marital Status | | + + + | Rastafarian Affiliation | 1013 | + + + | Race | White | + + + | Ethnic Group | Not or | + + + Author + + + | Author | [facility] | | | and [place] | + + + | Organization | [facility] | | | [...] Providers + +------+ + | Care Rn Internship Name | Role | Phone | + [...] | radicular | PA-C [address] | [address] | | | | n | pain S/P | [address] | [place], | | | | | cervical | [place], | [place] [address] | | | | | spinal | [place] [address] | Phone: | | | | | fusion | Phone: | [phone] | | | | | Procedures | [phone] | Fax: | | | | | pt eval | Fax: | [phone] | | | | | | [phone] | | +--------+ + + + + + Encounter Details +--------+---------+ + + + | Date | Type | Department | Care Team | Description | +--------+---------+ + + + | 06/18/ | Office | [facility] | David Ceballos, | Neck pain on left | | 2014 | Visit | MED CTR THERAPY PT | PA-C [address] | side (Primary Dx); | | | | OP [address] | [address] [place], [place] | Posture abnormality; | | | | [place] | [address] | Neuropathic pain, | | | | [address] | | arm; Fusion of spine | | | | [phone] | Lisa Mosley R, | of cervical region | | | | | COMPUTER MECHANIC [address] | | | | | | [place], [place] | | | | | | [address] | | | | | | [phone] | | | | | | | [...] of this encounter Progress Notes Lisa Mosley, COMPUTER MECHANIC - 06/18/2014 1:58 PM PDTFormatting of this note might be different f rom the original. [facility] THER[facility] PT OP [address] [place] [address] Physical Therapy Daily Treatment Note Date: 06/18/2014 Patient Information Patient Name: Gale Godinez Date [...] Patient Name: Gale Godinez/: 1980/ Start Time: 0845 Stop time: 30 Duration: 45 minutes Timed Treatment Codes: 45 minutes # of PT Visits to Date: 2 Subjective: Pt is allergic to latex. Pt is frustrated as her family doesn't understand her limitations at this time. Pt still feels lump in her throat when she swallows, but has decre ased. Pain Assessment Pain Rating Pre Assessment: 7 Location: neck muscles are pulling left side down to the shoulder. Objective Patient/Caregiver Education Learner: Patient Readiness: Acceptance Method: Explanation;Demonstration;Handout Response: Verbalizes Understanding;Demonstrated Understanding Comment: deep breathing, prevention of elevation of the shoulders.Postural awareness. Squat with 0# with emphasis prevent bending. Posture/Cervical/Back Posture: Chin tuck;Scapular retractions/adduction Body mechanics Body Mechanics: instruction of lifting items with good body mechanics Therapeutic Exercise HEP: issued red thera foam, instead of use of thera ummty as grandchild wont leave it alone . Therapeutic exercise: scapular retraction, neck AROM, bicep curls, ER 0# Assessment Pt was receptive to information given to her this morning. Education on prevention of eleva tion at the shoulders with stress. Rehabilitation potential: Patient demonstrates good potential to achieve established goals to address the documented impairments by participating in skilled physical therapy services. Next Visit Information: cont to improve strengthe to allow for greater functional mobility and tolerance. Unloading with kinesio tape for upper trap tension. Electronically signed by: Lisa Mosley PTA, 06/18/2014 13:59 Patient Name: Gale Godinez/: 1980/ documented in [...]
--- OUTSIDE RECORDS SUMMARY | ~2020-07-30 | XMS | Encounter Summary ---
Demographics + + + | Address | [address] | | | [place] [address] | + + + | Home Phone [...] + + | Author | [facility] | | | and [place] | + + + | Organization | [facility] | | | [...] Team Providers + +------+ + | Care Photoengraving Photographer Name | Role | Phone | + +------+ + | No, Unknownpcp | PCP | | + +------+ + Encounter Details +--------+ + + + + | Date | Type | Department | Care Team | Description | +--------+ + + + + | 07/09/ | Documentati | [facility] | Mehrdad Saenz M, PT | | | 2013 | on | MED CTR THERAPY PT | [address] | | | | | OP [address] | [place], [place] | | | | | [place], [place] | [address] | | | | | [address] | | | | | | [phone] | | | +--------+ + + + [...] this encounter Progress Mehrdad Clemens, PT - 07/10/2014 2:28 PM [facility] OP [address] [place] [id number] Cancellation/No Show Date: 07/09/2014 Patient Information Patient Name: Gale Godinez Date of : 1980 Age: 34 y.o. Reason for missed visit: Unknown, no show. Phone call placed: yes Plan: She was not in so she was asked to call. Will reeducate her when she returns the connie l on the cancellation no show policy verbally, and if she does not come to her next schedule d session she will be discharged. Electronically signed by: Mehrdad Saenz PT, 07/10/2014 14:28 Patient Name: Gale Godinez/: 1980/ documented in [...]
--- OUTSIDE RECORDS SUMMARY | ~2020-07-30 | XMS | Encounter Summary ---
Demographics + + + | Address | [address] | | | [place] [address] | + + + | Home Phone | | + + + | Preferred Language | Unknown | + + + | Marital Status | | + + + | Methodist Affiliation | 1013 | + + + | Race | White | + + + | Ethnic Group | Not or | + + + Author + + + | Author | [facility] | | | and [place] | + + + | Organization | [facility] | | [...] Team Providers + +------+ + | Care Casino Change Attendant Name | Role | Phone | + +------+ + | Adrien Chatterjee DO | PCP | | + +------+ + Reason for Visit + +--------+ + | Reason | Onset | Comments | | | Date | | + +--------+ + | Medication Refill | 05/26/ | | | | 2013 | | + +--------+ + Encounter Details +--------+--------+ + + + | Date | Type | Department | Care Team | Description | +--------+--------+ + + + | 05/26/ | Refill | [facility] | Kg Lemons, | Medication Refill | | 2013 | | NEUROSUR[address] | DO [address] | | | | | [address] [facility] [address] | [address] [place], [place] | | | | | [place], [place] | [id number] | | | | | [address] | | | | | | [phone] | | | +--------+--------+ + + + [...] Encounter - Omer Jackson Cert MA - 05/26/2014 1:07 PM PDTRx approved by Dr. Dr malik, called into patient's pharmacy. OMER JACKSON elephone Encounte r - Omer Jackson Cert MA - 05/26/2014 12:00 PM PDTI received a call that this Rx printed a t [facility]. Is there anyway to re-print the Rx to print over here? Thanks, OMER JACKSON elephone Lacie Galicia - 05/26/2014 10:57 AM PDTPatient's returned callElectronical ly signed by Lacie Lemus at 05/26/2014 10:58 AM PDTTelephone Encounter - Devorah Lemons DO - 05/26/2014 10:02 AM PDTDone.Electronically signed by Kg Lemons DO at 014 10:02 AM PDTTelephone Encounter - Omer Jackson Cert MA - 05/26/2014 9:14 AM PDTAmanda called today requesting a refill of her pain medication. She states she is having trouble with her left hand. She keeps dropping things. She says this has been present since her easley rgery. She would like her Rx called into her preferred pharmacy. Please approve/deny Rx. OMER JACKSON documented in this encounter Plan of Treatment Not on filedocumented as of this encounter Visit Diagnoses + + | Diagnosis | + + | S/P cervical spinal fusion - Primary Arthrodesis status | + + documented in this encounter"
--- OUTSIDE RECORDS SUMMARY | ~2020-07-30 | XMS | Encounter Summary ---
Demographics + + + | Address | [address] | | | [place] [address] | + + + | Home Phone [...] Author | [facility] | | | and [place] [...] Team Providers + +------+ + | Care Bottle Labeler Name | Role | Phone | + +------+ + | Adrien Chatterjee DO | PCP | | + +------+ + Encounter Details +--------+ + + + + | Date | Type | Department | Care Team | Description | +--------+ + + + + | 04/16/ | Hospital | [facility] | Kg Lemons, | | | 2013 | Encounter | MED CTR LABORATORY | DO [address] | | | | | [address] [place] | [address] [place], [place] | | | | | [place] | [address] | | | | | [address] | | | | | | [phone] | | | +--------+ + + + [...] | UNABLE TO FIND | Med Name: Julia | | 0 | | | | [...]
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
--- OUTSIDE RECORDS SUMMARY | ~2020-07-30 | XMS | Encounter Summary ---
Demographics + + + | Address | [address] | | | [place] [address] | + + + | Home Phone | | + + + | Preferred Language | Unknown | + + + | Marital Status | | + + + | Sabianism Affiliation | 1013 | + + + | Race | White | + + + | Ethnic Group | Not or | + + + Author + + + | Author | [facility] | | | and [place] | + + + | Organization | [facility] | | [...] Team Providers + +------+ + | Care Corn Chip Maker Name | Role | Phone | + +------+ + | Adrien Chatterjee DO | PCP | | + +------+ + Reason for Visit + +--------+ + | Reason | Onset | Comments | | | Date | | + +--------+ + | Appointment | 07/30/ | | | | 2013 | | + +--------+ + Encounter Details +--------+ + + + + | Date | Type | Department | Care Team | Description | +--------+ + + + + | 07/30/ | Telephone | [facility] | Tacho Crawford, | Appointment | | 2013 | | NEUROSURGERY [address] | PA-C [address] | | | | | [address] | [address] [place] | | | | | [place], [place] | [place] [address] | | | | | [address] | [phone] | | | | | [phone] | | | +--------+ + + + [...] Encounter - Omer Jackson Cert MA - 08/03/2014 10:03 AM PDTI called susanna back and she states she was able to work her schedule out and will make it to her appointment. OMER JACKSON elephone Yanira Roberts - 07/30/2014 4:47 PM PDTCalled to confirm patient's appointment for Sun08/03/14. She would like to reschedule. She has a meeting she has to be at from 5-7pm [facility]. documented in thi s encounter Plan of Treatment Not on filedocumented as of this encounter Visit Diagnoses Not on filedocumented in this encounter"
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
--- OUTSIDE RECORDS SUMMARY | ~2020-07-30 | XMS | Encounter Summary ---
Demographics + + + | Address | [address] | | | [place] [address] | + + + | Home Phone | | + + + | Preferred Language | Unknown | + + + | Marital Status | | + + + | Synagogue Affiliation | 1013 | + + + | Race | White | + + + | Ethnic Group | Not or | + + + Author + + + | Author | [facility] | | | and [place] | + + + | Organization | [facility] | | [...] Team Providers + +------+ + | Care Burial Vault Setter Name | Role | Phone | + +------+ + | Adrien Chatterjee DO | PCP | | + +------+ + Encounter Details +--------+ + + + + | Date | Type | Department | Care Team | Description | +--------+ + + + + | 12/25/ | Hospital | [facility] | Kg Lemons, | Cervical | | 2015 | Encounter | MED CTR XRAY [address] | DO [address] | spondylosis; S/P | | | | [place] | [address] [place], [place] | cervical spinal | | | | [place] [address] | [address] | fusion; | | | | [phone] | | Osteoarthritis of | | | [...] XR CERVICAL SPINE 2 | Routin | 12/25/2014 | Cervical | Results for this | | OR 3 VIEWS | e | 11:08 AM | spondylosis [...] XR CERVICAL SPINE 2 OR 3 VIEWS (12/25/2014 11:08 AM PDT) + + | Specimen | + + | | + + + + + | Narrative | Performed At | + + + | XR CERVICAL SPINE 2 OR 3 VIEWS. 12/25/2014 11:08 AM HISTORY: | [facility] | | S/p cervical fusion . COMPARISON: 08/03/2014 FINDINGS: | . [facility] | | Anterior cervical fusion at C5-6. Note is made of decreasing density | [facility] | | of the graft material at the intervening level as compared with | - IMAGING | | 08/03/2014, with some heterogeneity. There is also some increase in | | | thickness of the soft tissues anterior to the fixation plate as | | | compared with 08/03/2014. Alignment appears maintained at the fused | | | level. There is some reversal of the cervical lordosis above the | | | fused level, without significant anterolisthesis. Degenerative | | | change is present at the atlantoaxial articulation. IMPRESSION | | | - Heterogeneous appearance of graft material at the C5-6 level, as | | | can be seen with fracture of the graft material. Appearance of mild | | | increase in thickness of the soft tissues anterior to the operative | | | site. Recommend correlation for possible infection. Dictated | | | and Signed by: Ap Vazquez MD Electronically signed: | | | 12/25/2014 6:22 PM | | + + + + + | Procedure Note | + + | Ant, Rad Results In - 12/25/2014 6:25 PM PDT XR CERVICAL SPINE 2 OR 3 VIEWS. | | 12/25/2014 11:08 AMHISTORY: S/p cervical fusion . COMPARISON: | | 08/03/2014FINDINGS:Anterior cervical fusion at C5-6. Note is made of decreasing density | | of thegraft material at the intervening level as compared with 08/03/2014, with | | someheterogeneity. There is also some increase in thickness of the soft tissuesanterior | | to the fixation plate as compared with 08/03/2014. Alignment appearsmaintained at the | | fused level. There is some reversal of the cervical lordosisabove the fused level, | | without significant anterolisthesis. Degenerative changeis present at the atlantoaxial | | articulation.IMPRESSION -Heterogeneous appearance of graft material at the C5-6 level, | | as can be seenwith fracture of the graft material. Appearance of mild increase in | | thicknessof the soft tissues anterior to the operative site. Recommend correlation | | forpossible infection.Dictated and Signed by: Ap Vazquez MD Electronically | | signed: 12/25/2014 6:22 PM | |is present at the atlantoaxial articulation. | | | | | |IMPRESSION - | |Heterogeneous appearance of graft material at the C5-6 level, as can be seen | |with fracture of the graft material. Appearance of mild increase in thickness | |of the soft tissues anterior to the operative site. Recommend correlation for | |possible infection. | | | |Dictated and Signed by: Ap Vazquez MD | | Electronically signed: 12/25/2014 6:22 PM | + + + + + + + | Performing | Address | City/State/Zipcode | Phone Number | | Organization | | | | + + + + + | [facility] | [address] | [place] | [phone] | | [facility] | | [address] | | | - IMAGING | | [...]
--- OUTSIDE RECORDS SUMMARY | ~2020-07-30 | XMS | Encounter Summary ---
Demographics + + + | Address | [address] | | | [place] [address] | + + + | Home Phone | | + + + | Preferred Language | Unknown | + + + | Marital Status | | + + + | Advent Affiliation | 1013 | + + + | Race | White | + + + | Ethnic Group | Not or | + + + Author + + + | Author | [facility] | | | and [place] | + + + | Organization | [facility] | | [...] Team Providers + +------+ + | Care Technical Support 1 Software Engineer Name | Role | Phone | + +------+ + | Adrien Chatterjee DO | PCP | | + +------+ + Encounter Details +--------+ + + + + | Date | Type | Department | Care Team | Description | +--------+ + + + + | 04/16/ | Hospital | [facility] | Kg Lemons, | Preoperative | | 2014 | Encounter | MED CTR XRAY [address] | DO [address] | examination, | | | | [place] | [address] [place], [place] | unspecified (Primary | | | | [place] [address] | [address] | Dx) | | | | [phone] | | | +--------+ + + + [...] + + documented as of this encounter Procedure Notes CARLOS A BARTONNV - 04/20/2014 12:00 AM PDT 14 11:00 AM Parish Robles MD - 04/17/2014 8:08 PM PDTAssociated Order(s): ECG 12 LEADP rocedure(s): ECG 12 LEAD Adult ECG Report Name: Gale Godinez Age: 33 y.o. Gender: female 04/16/14 at 10:26 Narrative Interpretation: Sinus bradycardia. Prolonged QTC. Normal axis. documented in this encounter Plan of Treatment Not on filedocumented as of this encounter Procedures + +--------+ + + + | Procedure Name | Priori | Date/Time | Associated Diagnosis | Comments | | | ty | | | | + +--------+ + + + | ECG 12 LEAD | Routin | 04/17/2014 | | Results for this | | | e | 8:08 PM | | procedure are in the [...] + | [facility]OUS LAB | | | [phone] | + +---------+ + + | MISCEL[facility] LAB | | | [phone] | + +---------+ + + documented in this encounter Visit Diagnoses + + | Diagnosis | + + | Preoperative examination, unspecified - Primary | + + documented in this encounter"
--- OUTSIDE RECORDS SUMMARY | ~2020-07-30 | XMS | Encounter Summary ---
Demographics + + + | Address | [address] | | | [place] [address] | + + + | Home Phone | | + + + | Preferred Language | Unknown | + + + | Marital Status | | + + + | Christianity Affiliation | 1013 | + + + | Race | White | + + + | Ethnic Group | Not or | + + + Author + + + | Author | [facility] | | | and [place] | + + + | Organization | [facility] | | | [...] Team Providers + +------+ + | Care Broodmare Barn Groom Name | Role | Phone | + +------+ + | Ingrid Acosta | PCP | | | SECURITY EXPERT | | | + +------+ + Encounter Details +--------+ + + + + | Date | Type | Department | Care Team | Description | +--------+ + + + + | 11/12/ | Hospital | [facility] | Kg Lemons, | | | 2013 | Encounter | MED CTR XRAY [address] | DO [address] | | | | | [place] | [address] [place], [place] | | | | | [place] [address] | [address] | | | | | [phone] | | | +--------+ + + + [...] at Time of Discharge + + + +---------+--------+ + | Medication | Sig | Dispensed | Refills | Start | End Date | | | | | | Date | | + + + +---------+--------+ + | BACLOFEN PO | Take by mouth. | | 0 | | | | | | | | | 4 | + + + +---------+--------+ + | ferrous sulfate | Take 325 mg by mouth | | 0 | | | | (IRON) 325 (65 FE) | Daily. | | | | 8 | | MG TABS | | | | | | + + + +---------+--------+ + | GABAPENTIN PO | Take by mouth. | | 0 | | | | | | | | | 4 | + + + +---------+--------+ + | ibuprofen (ADVIL, | Take 800 mg by mouth | | 0 | | | | MOTRIN) 200 mg | as needed. | | | | 4 | | tablet | | | | | | + + + +---------+--------+ + | Ondansetron HCl | Take by mouth. | | 0 | | | | (ZOFRAN PO) | | | | | 4 | + + + +---------+--------+ + | | Take 1 tablet by | | 0 | | | | Oxycodone-Acetaminop | mouth EVERY 4 TO 6 | | | | 4 | | hen (PERCOCET PO) | HOURS NEEDED. | | | | | + + + +---------+--------+ + | UNABLE TO FIND | Med Name: Julia | | 0 | | | | | Powder. 1-2 powders | | | | 4 | | | when I get a | | | | | | | headache | | | | | + + + +---------+--------+ + documented as of this encounter Plan of Treatment Not on filedocumented as of this encounter Procedures + +--------+ + + + | Procedure Name | Priori | Date/Time | Associated Diagnosis | Comments | | | ty | | | | + +--------+ + + + | XR CERVICAL SPINE 2 | Routin | 11/12/2013 | | Results for this | | OR 3 VIEWS | e | 4:46 PM | | procedure are in the | | | | PST | | results section. | + +--------+ + + + documented in this encounter Results XR Cervical Spine 3 Vws or Less (11/12/2013 4:46 PM PST) + + | Specimen | + + | | + + + + + | Narrative | Performed At | + + + | [facility] | [place] | | Department [address] [place] [address] | [facility] | | [ rep [address]] [ rep [facility] | | [facility]] Signed | - IMAGING | | | | | Patient Name: JOSE M JACKSON | | | Physician: AMAN : 1980 Age: 33 Sex: F Unit | | | #: [id number] Exam Date: 11/12/13 Location: | | | [facility] Report #: [id number] Page: | | | %(RAD)RES..mtdd.print.filter("pg") of %(RAD) | | | RES..mtdd.print.filter("tpg") | | | | | | Accession Number: [id number] | | | CERVICAL SPINE THREE VIEWS OR LESS X-RAY CLINICAL | | | HISTORY: NECK PAIN. FINDINGS: There is reversal | | | of the cervical lordosis on the upright neutral view, as can be seen | | | with positioning versus muscle spasm. Vertebral body alignment is | | | otherwise maintained on upright neutral, flexion, and extension | | | views. Disk heights and vertebral body heights are also maintained. | | | The prevertebral and paraspinal soft tissues are unremarkable. | | | Degenerative change is seen at the atlantoaxial articulation. | | | IMPRESSION: REVERSAL OF THE CERVICAL LORDOSIS, CAN BE | | | SEEN WITH POSITIONING VERSUS MUSCLE SPASM. DEGENERATIVE CHANGE | | | AT THE ATLANTOAXIAL ARTICULATION. NO EVIDENCE OF SPONDYLOLISTHESIS. | | | Dictated Date/Time: 11/12/2013 16:46 Transcribed | | | Date/Time: 11/12/2013 18:30 Production Stage Manager: MELL | | | <<Signature on File>> | | | Percy | | | Kale Vazquez MD11/13/13 0828 <Electronically signed by Percy Henley | | | George DALTON> Percy Vazquez MD 11/12/13 1646 | | | Production Stage Manager: Frankie Panchal11/12/13 9341 | | | | | + + + + + + + + | Performing | Address | City/State/Zipcode | Phone Number | | Organization | | | | + + + + + | [facility] | [address] | [place] | [phone] | | [facility] | | [address] | | | - IMAGING | | | | + + + + + documented in this encounter Visit Diagnoses Not on filedocumented in this encounter
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
--- OUTSIDE RECORDS SUMMARY | ~2020-07-30 | XMS | Encounter Summary ---
Demographics + + + | Address | [address] | | | [place] [address] | + + + | Home Phone [...] | Author | [facility] | | | and [...] Team Providers + +------+ + | Care Video Games Storywriter Name | Role | Phone | + +------+ + | Ingrid Acosta | PCP | | | FINANCIAL REP | | | + +------+ + Encounter Details +--------+ + + + + | Date | Type | Department | Care Team | Description | +--------+ + + + + | 11/07/ | Abstract | [facility] [place] | Kg Lemons, | Anemia (Primary Dx); | | 2013 | | NEUROSURGERY [address] | DO [address] | Migraines | | | | [address] | [address] [place], [place] | | | | | [place], [place] | [address] | | | | | [address] | | | | | | [phone] | | | +--------+ + + + + Social History + + + +--------+------+ | Tobacco Use | Types | Packs/Day | Years | Date | | | | | Used | | + + + +--------+------+ | Current Every Day | Cigarettes | 1 | 19 | | | Smoker | [...]
--- OUTSIDE RECORDS SUMMARY | ~2020-07-30 | XMS | Encounter Summary ---
Demographics + + + | Address | [address] | | | [place] [address] | + + + | Home Phone | | + + + | Preferred Language | Unknown | + + + | Marital Status | | + + + | Evangelical Affiliation | 1013 | + + + | Race | White | + + + | Ethnic Group | Not or | + + + Author + + + | Author | [facility] | | | and [place] | + + + | Organization | [facility] | | | [...] Team Providers + +------+ + | Care Director Adult Name | Role | Phone | + +------+ + | Ingrid Acosta | PCP | | | OLIVER FILTER OPERATOR | | | + +------+ + Reason for Visit + + + | Reason | Comments | + + + | New Patient | neck pain | + + + | Arm Pain | Left | + + + | Leg Pain | Left | + + + Evaluate & Treat (Routine) +--------+--------+ + + + + | Status | Reason | Specialty | Diagnoses / | Referred By | Referred To | | | | | Procedures | Contact | Contact | +--------+--------+ + + + + | Closed | | Neurosurgery | Diagnoses | Veda, | Cristo, | | | | | Bulge of | Emeka Parker, | Kg Agustin DO | | | | | cervical | MD [address] | [address] | | | | | disc without | [address] COMER | [address] | | | | | myelopathy | [place], | [place] | | | | | Neck pain | [place] [address] | [address] Phone: | | | | | Left | Phone: | [phone] | | | | | cervical | [phone] | Fax: | | | | | radiculopath | Fax: | [phone] | | | | | y | [phone] | | | | | | Procedures | | | | | | | MA OFFICE | | | | | | | CONSULTATION | | | | | | | NEW/ESTAB | | | | | | | PATIENT 60 | | | | | | | MIN | | | +--------+--------+ + + + + Encounter Details +--------+---------+ + + + | Date | Type | Department | Care Team | Description | +--------+---------+ + + + | 11/12/ | Office | [facility] | Kg Lemons, | Cervical spondylosis | | 2013 | Visit | NEUR[address]URGERY [address] | DO [address] | (Primary Dx); | | | | [address] | [address] [place], [place] | Cervical stenosis of | | | | [place], [place] | [id number] | spinal canal; | | | | [address] | | Cervical radicular | | | | [phone] | | pain; Cervicalgia | +--------+---------+ + [...] + + + | Blood Pressure | 132/85 | 11/12/2013 2:18 PM | | | | | PST | | + + + + + | Pulse | 76 | 11/12/2013 2:18 PM | | | | | PST | | + + + + + | Temperature | - | - | | + + + + + | Respiratory Rate | 18 | 11/12/2013 2:18 PM | | | | | PST | | + + + + + | Oxygen Saturation | - | - | | + + + + + | Inhaled Oxygen | - | - | | | Concentration | | | | + + + + + | Weight | 83.9 kg (185 lb) | 11/12/2013 2:18 PM | | | | | PST | | + + + + + | Height | 157.5 cm (5' 2") | 11/12/2013 2:18 PM | | | | | PST | | + + + + + | Body Mass Index | 33.84 | 11/12/2013 2:18 PM | | | | | PST | | + + + + + documented in this encounter Patient Instructions Patient Instructions Kg Lemons DO - 11/12/2013 2:57 PM PSTPlease start physical the rapy. Please undergo steroid injection with Dr. Jennings. Follow-up with me as needed. documented in this encounter Progress Notes David Ceballos PA-C - 11/12/2013 2:16 PM PST Kg Lemons D.O. 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 She does not indicate a history of loss of fine motor function. Other findings of progressive myelopathy are not present. Her symptoms improve with nothing that she knows of. Her symptoms worsen with walking, sitting, standing, extending her neck and most forms of a ctivity. She has tried lifestyle modification. PAST MEDICAL HISTORY: Past Medical History Diagnosis Date Anemia Migraines PAST SURGICAL HISTORY: Past Surgical History Procedure Date Tubal ligation 2001 Cholecystectomy 1999 CURRENT MEDICATIONS: Current Outpatient Prescriptions Medication Sig Dispense Refill cyclobenzaprine (FLEXERIL) 10 mg tablet Take 10 mg by mouth 3 times daily as needed. ferrous sulfate (IRON) 325 (65 FE) MG TABS Take 325 mg by mouth Daily. HYDROcodone-acetaminophen (NORCO) 5-325 mg per tablet Take 1 tablet by mouth every 6 ho urs as needed. ibuprofen (ADVIL, MOTRIN) 200 mg tablet Take 800 mg by mouth 3 times daily. UNABLE TO FIND Med Name: Ingrid's Powder. 1-2 powders when I get a headache ALLERGIES: Allergies Allergen Reactions Latex Itching and Rash SOCIAL HISTORY: The patient reports that she has been smoking Cigarettes. She has a 19 pack-year smoking history. She does not have any smokeless tobacco history on file. She reports that she drink s alcohol. She reports that she does not [...] joint arthritis, no rheumatoid arthritis. PHYSICAL EXAMINATION: There were no vitals taken for this visit. There is no height or weight on file to calculat e BMI. GENERAL: Gale Jackson is in no acute distress with unlabored [...] pain limited MUSCLE/ MOVEMENT: RIGHT LEFT Deltoids 4+ 4+ Biceps 4+ 4+ Triceps 4+ 4+ Wrist Flexion 5 5 Wrist Extension 5 5 Median Intrinsics 5 5 Ulnar Intrinsics 5 5 Floral Designer Salesperson Strength 4+ 4+ Hip Flexion 5 5 Hip Extension 5 [...] History Diagnosis Date Anemia Migraines PLAN: Gale Jackson presented today, and it was a pleasure seeing this patient and assessin g her problems. The patient and I discussed the natural history, non-operative, and operati ve options for her disease. After a full discussion, the patient decided to pursue conserva tive management. She will initiate physical therapy and undergo left C5-6 epidural steroid i njection with Dr. Jennings. She will follow-up with me as needed. If her symptoms do not improve with these modalities, she would consider C5-6 disc arthroplasty. David Ceballos and I spent 1 hour in visit with Gale Jackson today with the majori ty of time spent counselling the patient on her diagnosis, discussing options for her care, and coordinating her care. ELECTRONICALLY SIGNED BY: David Ceballos PA-C, Kg Lemons, Anabelle. 11/12/2013 16:15 documented in this en counter Miscellaneous Notes Miscellaneous - ONBASE SCAN [facility] - 11/12/2013 12:00 AM PST iscellaneous - ONBASE SCAN [facility] - 11/12/2013 12:00 AM PSTEle ctronically signed by Mauricio Kumar at 11/13/2013 1:29 PM PSTMiscellaneous - ONBASE SCAN [facility] T - 11/12/2013 12:00 AM PST d ocumented in this encounter Plan of Treatment Not [...]
--- OUTSIDE RECORDS SUMMARY | ~2020-07-30 | XMS | Encounter Summary ---
Demographics + + + | Address | [address] | | | [place] [address] | + + + | Home Phone [...] | Author | [facility] | | [...] Team Providers + +------+ + | Care Product Safety Compliance Leader Name | Role | Phone | + [...] | | | [address] | [place] [address] | | | | | [place] [address] | | | | | | [phone] | | | +--------+ + + + [...] XR CERVICAL SPINE 4 | Routin | 07/17/2017 | | Results for this | | OR 5 VWS | e | 4:25 PM | | procedure are in the | | | | PDT | | results section. | + +--------+ + + + documented in this encounter Results XR Cervical Spine 4 or 5 Vws (07/17/2017 4:25 PM PDT) + + | Specimen | [...]
--- OUTSIDE RECORDS SUMMARY | ~2020-07-30 | XMS | Encounter Summary ---
Demographics + + + | Address | [address] | | | [place] [address] | + + + | Home Phone | | + + + | Preferred Language | Unknown | + + + | Marital Status | | + + + | Presybeterian Affiliation | 1013 | + + + | Race | White | + + + | Ethnic Group | Not or | + + + Author + + + | Author | [facility] | | | and [place] | + + + | Organization | [facility] | | | and [...] Team Providers + +------+ + | Care Structural Metal Worker Name | Role | Phone | + +------+ + | Ji Tony DO | PCP | | + +------+ + Reason for Visit + +--------+ + | Reason | Onset | Comments | | | Date | | + +--------+ + | Imaging Only | 04/16/ | Needs to schedule MRI | | | 2018 | | + +--------+ + Encounter Details +--------+ + + + + | Date | Type | Department | Care Team | Description | +--------+ + + + + | 04/16/ | Telephone | [facility] | Kg Lemons, | Imaging Only (Needs | | 2018 | | NEUROSURGERY [address] | DO [address] | to schedule MRI) | | | | [address] | [address] [place], [place] | | | | | [place], [place] | [id number] | | | | | [address] | | | | | | [phone] | | | +--------+ + + + [...] Encounter - Belgica Groves Cert MA - 06/05/2018 10:02 AM PDTI spoke with Gale duran. I relayed Gertrudis's recommendations to her. She verbalized understanding Electronical ly signed by Chintan Coates MA at 06/05/2018 10:04 AM PDTTelephone Encounter - Elham Scott PA-C - 06/05/2018 9:25 AM PDTPlease notify patient that MRI shows a stable fu sreedhar. There is a mild bulge at C3-4 and C6-7 without nerve impingement. The C3-4 dic bulge i s mild but may be subtly progressed. This however is not near the nerve causing her arm pain . There is not a surgical lesion in the MRI. I recommend she continue conservative care with PT. (Insurance won't pay for injections.) elephone Encounter - Vani Nguyen CMA - 06/04/2018 9:47 AM PD TMRI on I-site for review. Please advise. Electronically signed by Vani Nguyen CMA at 06/04 9:48 AM PDTTelephone Encounter - Vani Nguyen CMA - 05/31/2018 9:54 AM PDTReport re ceived from [facility] for MRI. [facility] has patient under Gale Jackson. Images w ill be pushed to Isite and forwarded to provider for review once received. Electronically si gned by Vani Nguyen CMA at 06/04/2018 9:46 AM PDTTelephone Encounter - Gale England M edical Contract Serviceman - 05/10/2018 10:26 AM PDTCalled and still not able to reach Gale as her p hones are disconnected. Will mail a letter out. Will defer the MRI order out 2 weeks (to viktor e ample time for her to receive) and if still no response then I will close the MRI referral . ele phone Encounter - Gale England Medical Assistant - 04/16/2018 3:01 PM PDTAttempted to call Gale to let her know that her MRI was approved. Both numbers I tried were disconnecte d. I sent a letter and will send a mychart as well. Referral will be deferred for now.Electr onically signed by Lanny Romero at 04/16/2018 3:06 PM PDTdocumented i n this encounter Plan of Treatment Not on filedocumented as of this encounter Visit Diagnoses Not on filedocumented in this encounter"
--- OUTSIDE RECORDS SUMMARY | ~2020-07-30 | XMS | Encounter Summary ---
Demographics + + + | Address | [address] | | | [place] [address] | + + + | Home Phone | | + + + | Preferred Language | Unknown | + + + | Marital Status | | + + + | Episcopal Affiliation | 1013 | + + + | Race | White | + + + | Ethnic Group | Not or | + + + Author + + + | Author | [facility] | | | and [place] | + + + | Organization | [facility] | | [...] Team Providers + +------+ + | Care Intensive Care Unit Nurse Name | Role | Phone | + +------+ + | No, Unknownpcp | PCP | | + +------+ + Reason for Visit +--------+--------+ + | Reason | Onset | Comments | | | Date | | +--------+--------+ + | Pain | 07/10/ | | | | 2013 | | +--------+--------+ + Encounter Details +--------+ + + + + | Date | Type | Department | Care Team | Description | +--------+ + + + + | 07/10/ | Telephone | [facility] [place] | Percy Fuentes MD | Pain | | 2013 | | NEUROSURGERY [address] | [address] | | | | | [address] [facility] [address] | [place] [address] | | | | | [place] | [phone] | | | | | [address] | | | | | | [phone] | | | +--------+ + + + [...] Encounter - Omer Jackson Cert MA - 07/10/2014 3:53 PM PDTI spoke with Gale. She was seen at the [facility] ED last night and was given pain medication and is feeling much be tter. Dr. Lemons verbalized during this phone call that she needs a referral to Dr. More on. The patient is okay with this and I will submit a referral to him for her. She does hunter ve an upcoming visit in our office with RAHAT Gutierrez on 08/03/14. OMER JACKSON elephone Encounte r - Percy Fuentes MD - 07/10/2014 1:16 AM Anais Gianna Godinez called this am. Had an ep isode Of numbness and whole ricarda body paralysis a few days ago. Stated no one called her ba ck although the records here state otherwise. She lowered her arm and it happened again righ t now and she wanted to talk to Rasta Parikh. She sounded in distress. I advised she try to g o to the ED for evaluation now. Percy Fuentes documented in this encounter Plan of Treatment Not on filedocumented as of this encounter Visit Diagnoses Not on filedocumented in this encounter"
--- OUTSIDE RECORDS SUMMARY | ~2020-07-30 | XMS | Encounter Summary ---
Demographics + + + | Address | [address] | | | [place] [address] | + + + | Home Phone [...] Author | [facility] | | | and [place] | [...] Team Providers + +------+ + | Care Embedded Nurse Name | Role | Phone | + +------+ + | Adrien Chatterjee DO | PCP | | + +------+ + Encounter Details +--------+ + + + + | Date | Type | Department | Care Team | Description | +--------+ + + + + | 04/23/ | Hospital | [facility] | Charlene Virk | | | 2014 | Encounter | [facility] | D, PT [address] | | | | | PHYSICAL THERAPY | [address] | | | | | [address] [place] | [address] | | | | | [place] [address] | | | | | | [phone] | | | +--------+ + + + [...]
--- OUTSIDE RECORDS SUMMARY | ~2020-07-30 | XMS | Encounter Summary ---
Demographics + + + | Address | [address] | | | [place] [address] | + + + | Home Phone | | + + + | Preferred Language | Unknown | + + + | Marital Status | | + + + | Voodoo Affiliation | 1013 | + + + | Race | White | + + + | Ethnic Group | Not or | + + + Author + + + | Author | [facility] | | [...] Team Providers + +------+ + | Care Duty Engineer Name | Role | Phone | + +------+ + | Adrien Chatterjee DO | PCP | | + +------+ + Reason for Visit + +--------+ + | Reason | Onset | Comments | | | Date | | + +--------+ + | Medication Refill | 04/27/ | | | | 2013 | | + +--------+ + Encounter Details +--------+--------+ + + + | Date | Type | Department | Care Team | Description | +--------+--------+ + + + | 04/27/ | Refill | [facility] [place] | Kg Lemons, | Medication Refill | | 2013 | | NEUROSURGERY [address] | DO [address] | | | | | [address] [facility] [address] | [address] [place], [place] | | | | | [place], [place] | [id number] | | | | | [address] | | | | | | [phone] | | | +--------+--------+ + + + [...] encounter Miscellaneous Notes Telephone Encounter - Omer Groves Cert MA - 04/28/2014 10:33 AM PDTI spoke with Gale ulloa nd she will try to get a cervical collar at a DME supply store. OMER GROVES elephone Encounte r Omer Bowling Cert MA - 04/28/2014 10:19 AM PDTLeft message for Gale. OMER GROVES elephone EncounKg Flores DO - 04/28/2014 6:44 AM PDTWe can give him a chance. I'm not sure if chon crowell has cervical collars. If he does, sure. If not, any DME place should. Thanks. elephone Sharmaineo Omer Perez Cert MA - 04/27/2014 4:17 PM PDTIs this something we should have Horace mcmahan fit her for? elephone Kg Chavez DO - 04/27/2014 3:44 PM PDTShe can have a collar for comfort as needed . Thanks. elephone Enco Omer Perez Cert MA - 04/27/2014 12:03 PM PDTI called in the Rx refill for the pa maycol. She was updated at this time. Original destroyed. She complains of having trouble sleeping at night. She cannot get comfortable. She wants to know if there is something that she can use on her neck to help her sleep, like a collar or brace? Any suggestions? Please advise. Omer elephone David Leong PA-C - 04/27/2014 11:38 AM PDTapprove elephone Encounter - Omer Groves Cert MA - 04/27/2014 11:18 AM PDTPlease see attached information from patient and approve/deny RxHannah Lindo elephone Yanira Feng - 04/27/2014 10:14 AM PDTPrescription name: Hyrdrocodone How many pills left? 12 What pharmacy [facility] the [facility] use[facility] What is the pain level of the patient? 8 Where is the pain? Bottom of ears to bottom of torso What type of pain? (dull, sharp, stabbing, etc.) Pulsating, aching, shooting What procedure was done? S/P acdf Date of procedure? 04/23/14 Current intake? 2 pills every 4 hours Date of last refill? 04/23/14 Mailed or called into pharmacy? Please call inElectronically signed by Yanira Max at 10:32 AM PDTdocumented in this encounter Plan of Treatment Not on filedocumented as of this encounter Visit Diagnoses + + | Diagnosis | + + | S/P cervical spinal fusion - Primary Arthrodesis status | + + documented in this encounter"
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
--- OUTSIDE RECORDS SUMMARY | ~2020-07-30 | XMS | Encounter Summary ---
Demographics + + + | Address | [address] | | | [place] [address] | + + + | Home Phone | | + + + | Preferred Language | Unknown | + + + | Marital Status | | + + + | Mormonism Affiliation | 1013 | + + + | Race | White | + + + | Ethnic Group | Not or | + + + Author + + + | Author | [facility] | | | and [place] | + + + | Organization | [facility] | | [...] Providers + +------+ + | Care Senior Compensation Consultant Name | Role | Phone | + +------+ + | Adrien Chatterjee DO | PCP | | + +------+ + Reason for Visit + +--------+ + | Reason | Onset | Comments | | | Date | | + +--------+ + | Appointment | 09/30/ | | | | 2013 | | + +--------+ + Encounter Details +--------+ + + + + | Date | Type | Department | Care Team | Description | +--------+ + + + + | 09/30/ | Telephone | [facility] | Kg Lemons, | Appointment | | 2013 | | NEUROSURGERY [address] | DO [address] | | | | | [address] | [address] [place], [place] | | | | | [place], [place] | [address] | | | | | [address] | | | | | | [phone] | | | +--------+ + + + [...] Notes Telephone Encounter - Lacie Lemus - 09/30/2014 11:57 AM PSTLeft message and cancell ed patients appointment. Requested phone call back please reschedule patient to 10/09 at 11:30 if still available. do cumented in this encounter Plan of Treatment Not on filedocumented as of this encounter Visit Diagnoses Not on filedocumented in this encounter"
--- OUTSIDE RECORDS SUMMARY | ~2020-07-30 | XMS | Encounter Summary ---
Demographics + + + | Address | [address] | | | [place] [address] | + + + | Home Phone | | + + + | Preferred Language | Unknown | + + + | Marital Status | | + + + | Nondenominational Affiliation | 1013 | + + + | Race | White | + + + | Ethnic Group | Not or | + + + Author + + + | Author | [facility] | | | and [place] | + + + | Organization | [facility] | | | and [place] | + + + | Address | Unknown | + + + | Phone | Unavailable | + + + Support + + +---------+ + | Name | Relationship | Address | Phone | + + +---------+ + | Avery Quiroz | ECON | Unknown | | + + +---------+ + | Alissalaila Jackosn | ECON | Unknown | | + + +---------+ + Care Team Providers + +------+ + | Care Instrumentation Technician Name | Role | Phone | + +------+ + | Adrien Chatterjee DO | PCP | | + +------+ + Encounter Details +--------+ + + + + | Date | Type | Department | Care Team | Description | +--------+ + + + + | 08/03/ | Hospital | [facility] | Kg Lemons, | Cervical radicular | | 2013 | Encounter | MED CTR XRAY [address] | DO [address] | pain; S/P cervical | | | | [place] | [address] [place], [place] | spinal fusion | | | | [place] [address] | [address] | | | | | [phone] | | | +--------+ + + + [...] XR CERVICAL SPINE 2 | Routin | 08/03/2014 | Cervical radicular | Results for this | | OR 3 VIEWS | e | 3:33 PM | pain S/P cervical | procedure are in the | | | | PDT | spinal fusion | results section. | + +--------+ [...] + | MISCELLANEOUS LAB | | | [phone] | + +---------+ + + | MISCELANIOUS LAB | | | [phone] | + +---------+ + + documented in this encounter Visit Diagnoses + + | Diagnosis | + + | Cervical radicular pain Brachial neuritis or radiculitis nos | + + | S/P cervical spinal fusion Arthrodesis status | + + documented in this encounter"
--- OUTSIDE RECORDS SUMMARY | ~2020-07-30 | XMS | Encounter Summary ---
Demographics + + + | Address | [address] | | | [place] [address] | + + + | Home Phone [...] | Author | [facility] | | | and [place] [...] Team Providers + +------+ + | Care Last Pattern Grader Name | Role | Phone | + +------+ + | Adrien Chatterjee DO | PCP | | + +------+ + Encounter Details +--------+ + + + + | Date | Type | Department | Care Team | Description | +--------+ + + + + | 06/11/ | Documentati | [facility] | Lisa Mosley, | | | 2013 | on | MED CTR THERAPY PT | CLEAN UP SUPERVISOR [address] | | | | | OP [address] | [place], [place] | | | | | [place], [place] | [address] | | | | | [address] | [phone] | | | | | [phone] | | | +--------+ + + + [...] of this encounter Progress Notes Lisa Mosley, CLEAN UP SUPERVISOR - 06/11/2014 9:26 AM [facility] [address] [place] [address] Cancellation/No Show Date: 06/11/2014 Patient Information Patient Name: Gale Godinez Date of : 1980 Age: 33 y.o. Reason for missed visit: No show. Phone call placed: yes Plan: Left a message and gave the next appointment time. Asked to call and cxl if unable to make next appointment. Electronically signed by: Lisa Mosley PTA, 06/11/2014 9:26 Patient Name: Gale Godinez/: 1980/ documented in [...]
--- OUTSIDE RECORDS SUMMARY | ~2020-07-30 | XMS | Encounter Summary ---
Demographics + + + | Address | [address] | | | [place] [address] | + + + | Home Phone | | + + + | Preferred Language | Unknown | + + + | Marital Status | | + + + | Zoroastrianism Affiliation | 1013 | + + + | Race | White | + + + | Ethnic Group | Not or | + + + Author + + + | Author | [facility] | | | and [place] | + + + | Organization | [facility] | | | [...] Team Providers + +------+ + | Care Seed Specialist Name | Role | Phone | + +------+ + | Adrien Chatterjee DO | PCP | | + +------+ + Reason for Visit + +--------+ + | Reason | Onset | Comments | | | Date | | + +--------+ + | Medication Refill | 06/10/ | | | | 2013 | | + +--------+ + Encounter Details +--------+--------+ + + + | Date | Type | Department | Care Team | Description | +--------+--------+ + + + | 06/10/ | Refill | [facility] | Kg Lemons, | Medication Refill | | 2013 | | NEUROSURGERY [address] | DO [address] | | | | | [address] [facility] [address] | [address] [place], [place] | | | | | [place], [place] | [id number] | | | | | [address] | | | | | | [phone] | | | +--------+--------+ + + + [...] Encounter - Omer Jackson Cert MA - 06/10/2014 5:14 PM PDTI called and LVM for Gale letting her know that her Rx's have been called into her pharmacy. OMER JACKSON elephone EncounDavid Lopez PA-C - 06/10/2014 3:47 PM PDTApproved. elephone Encount er - Omer Jackson Cert MA - 06/10/2014 3:31 PM PDTPlease see refill request below and logan rove/deny Rx. Thank you, OMER JACKSON elephone EncounLacie Messer - 06/10/2014 11:11 AM PDTPrescription name: hydroCODONE-Acetaminophe n 5-325mg and Diazepam 5mg How many pills left? Patient is out of norco, and has enough vailum to last her until y What pharmacy does the patient use? [facility] in [place] What is the pain level of the patient? 7.5 Where is the pain? Most of the pain is in her neck. Her neck feels like she can't move it. Patient is using her neck brace again to help. Patient also is having pain in her left shoul antonio down through her left arm and into her hand. Patient claims she is having burning pain b etween both shoulder blades as well. What type of pain? (dull, sharp, stabbing, etc.) Radiating and burning. What procedure was done? CERVICAL FUSION Date of procedure? 04/23/14 Current intake? Patient would not answer this question and changed the subject 3 different times. She claims that Date of last refill? [place] refill: 05/26/14 Valium refill: 05/15/14 documented in this en counter Plan of Treatment Not on filedocumented as of this encounter Visit Diagnoses + + | Diagnosis | + + | S/P cervical spinal fusion - Primary Arthrodesis status | + + documented in this encounter"
--- OUTSIDE RECORDS SUMMARY | ~2020-07-30 | XMS | Encounter Summary ---
Demographics + + + | Address | [address] | | | [place] [address] | + + + | Home Phone [...] + + + | Author | [facility] | | | and [place] | + + + | Organization | [facility] | | | [...] Providers + +------+ + | Care Center Consultant Name | Role | Phone | + +------+ + | Adrien Chatterjee DO | PCP | | + +------+ + Reason for Visit +--------+--------+ + | Reason | Onset | Comments | | | Date | | +--------+--------+ + | Other | 04/21/ | Surgery reminder | | | 2013 | | +--------+--------+ + Encounter Details +--------+ + + + + | Date | Type | Department | Care Team | Description | +--------+ + + + + | 04/21/ | Telephone | [facility] | Kg Lemons, | Other (Surgery | | 2013 | | NE[address]UR[address] | DO [address] | reminder ) | | | | [address] | [address] [place], [place] | | | | | [place], [place] | [id number] | | | | | [address] | | | | | | [phone] | | | +--------+ + + + [...] Encounter - Omer Jackson Cert MA - 04/21/2014 11:35 AM PDTAmanda returned my ca ll. Surgery check in time and reminder's were given. OMER JACKSON elephone Encounte r - Lacie Lemus - 04/21/2014 9:27 AM PDTPatient returned phone call elephone Encounter - Omer Jackson Cert MA - 04/21/2014 8:16 AM PDTLeft message for Gale asking her to return my call regard ing her surgery on 01/22/14. She is to check in at the Outpatient procedure center at 10:45am. She needs to remember to follow her cleansing instructions that were provided to her. Nothing to eat or drink past midnight the night before surgery. Any medications that need to be taken in the morning kalie uld be done with a sip of water, enough to get them down safely. No Jewelry, lotion, perfum e, Deoderant, romanian on fingers or toes and no showering the morning of surgery. OMER JACKSON documented in this encounter Plan of Treatment Not on filedocumented as of this encounter Visit Diagnoses Not on filedocumented in this encounter"
[~2020-07-30 09:43] MED LIST changes: +TRAMADOL HCL50 MG PO; +VENTOLIN HFA18 GM INH
[2020-07-30] MEDS ORDERED: NORCO 7.5-3251 EACH PO (12:09)
[2020-07-30] MEDS ORDERED: FLOMAX0.4 MG PO (12:09)
[2020-07-30] MEDS ORDERED: ONDANSETRON ODT8 MG PO (12:09)
== END 2020-07-30 13:34 | disposition home or self-care (01) ==
LOC: ED 09:43
DX: N13.2 Hydronephrosis with renal and ureteral calculous obstruction (principal); F17.200 Nicotine dependence, unspecified, uncomplicated; Z88.0 Allergy status to penicillin; Z91.040 Latex allergy status
CPT/HCPCS: 74176; 80053; 81001; 84703; 85025; 96361; 96374; 96375; 96376; 99284-25; A9270; J1170; J1885; J2405; J7030